=== PATIENT | male | born 1960 | race Caucasian/White ===

== ENCOUNTER 2018-12-02 14:35 | Inpatient (IN) | payer BC ==
[2018-12-02] MEDS ORDERED: HYDROmorphone 0.5 MG/0.5 ML Syringe IVPUSH ONE ×2 (15:07→17:24)
[2018-12-02] MEDS ORDERED: Ondansetron 4 MG/2 ML SDV IVPUSH ONE (15:07)
[2018-12-02] MEDS ORDERED: Sodium Chloride 0.9% 10 ML Syringe FLUSH ONE (15:16)
[2018-12-02] MEDS ORDERED: Iopamidol 612 MG/ML 100 ML Bottle IVPUSH ONE (15:16)
[2018-12-02] MEDS ORDERED: Diatrizoate Meglumine/Diatrizoate Sodium 37% 120 ML Bottle PO ONE (15:16)
[2018-12-02] MEDS: Sodium Chloride 0.9% 10 ML Syringe FLUSH PRN ×2 (15:18→16:51)
[2018-12-02] MEDS: Sodium Chloride 0.9% 1,000 ML IV SCH (15:18)
--- NOTE | 2018-12-02 15:21 | EDM.PDOC ---
<Bonita Benítez - Last Filed: 12/02/18 15:14> ED HPI GENERAL MEDICAL PROBLEM - General Chief Complaint: Abdominal Pain Stated Complaint: SEVERE ABDOMINAL PAIN Time Seen by Provider: 12/02/18 14:48 Source of Information: Reports: Patient History Limitations: Reports: No Limitations - History of Present Illness INITIAL COMMENTS - FREE TEXT/NARRATIVE: 58 year old male with complaints of periumbilical pain. Pt states that he was putting a starter in a car when he developed sudden onset stabbing periumbilical pain. States that he became nauseated and then threw up. Vomit was yellow. Pain has been constant since. Did have a normal bowel movement this morning and denies issues with diarrhea or constipation or bloody stool. Has had chills since the pain has started. Pt does still have his appendix and gallbladder. Middle Abdomen Pain Score (Numeric/FACES): 10 - Related Data Allergies Allergy/AdvReac Type Severity Reaction Status Date / Time No Known Allergies Allergy Verified 12/02/18 14:47 Past Medical History Cardiovascular History: Reports: Hypertension - Past Surgical History Musculoskeletal Surgical History: Reports: Other (See Below) Other Musculoskeletal Surgeries/Procedures:: neck surgery; pins to left foot due to injury/fracture Social & Family History - Tobacco Use Smoking Status *Q: Current Every Day Smoker Years of Tobacco use: 30 Packs/Tins Daily: 0.7 - Caffeine Use Caffeine Use: Reports: Coffee, Soda - Recreational Drug Use Recreational Drug Use: No ED ROS GENERAL - Review of Systems Review Of Systems: See Below Constitutional: Reports: Chills HEENT: Reports: No Symptoms Respiratory: Reports: No Symptoms Cardiovascular: Reports: No Symptoms Endocrine: Reports: No Symptoms GI/Abdominal: Reports: Abdominal Pain, Nausea, Vomiting. Denies: Black Stool, Bloody Stool, Constipation, Diarrhea, Hematemesis : Reports: No Symptoms Musculoskeletal: Reports: No Symptoms Skin: Reports: No Symptoms Neurological: Reports: No Symptoms Psychiatric: Reports: No Symptoms Hematologic/Lymphatic: Reports: No Symptoms Immunologic: Reports: No Symptoms ED EXAM, GI/ABD - Physical Exam Exam: See Below Exam Limited By: No Limitations General Appearance: Alert, WD/WN, Moderate Distress Ears: Normal External Exam Nose: Normal Inspection Throat/Mouth: Normal Inspection, Normal Oropharynx, Normal Voice, No Airway Compromise Head: Atraumatic, Normocephalic Neck: Normal Inspection, Supple Respiratory/Chest: No Respiratory Distress, Lungs Clear, Normal Breath Sounds, No Accessory Muscle Use, Chest Non-Tender Cardiovascular: Normal Peripheral Pulses, Regular Rate, Rhythm, No Edema, No Murmur GI/Abdominal Exam: Normal Bowel Sounds, Guarding, Tender. No: Distended, Rigid (Male) Exam: Deferred Rectal (Males) Exam: Deferred Back Exam: Normal Inspection Extremities: Normal Inspection, Normal Range of Motion, Non-Tender, No Pedal Edema Neurological: Alert, Oriented, Normal Cognition Psychiatric: Normal Affect, Normal Mood Skin Exam: Warm, Dry, Intact, Normal Color, No Rash Lymphatic: No Adenopathy Course - Vital Signs Last Recorded V/S: Last Vital Signs Temp 97.4 F 12/02/18 14:52 Pulse 74 12/02/18 14:52 Resp 20 12/02/18 14:52 BP 174/86 H 12/02/18 14:52 Pulse Ox 100 12/02/18 14:52 - Orders/Labs/Meds Orders: Active Orders 24 hr Category Date Time Status Peripheral IV Care [RC] . DIRECTED Care 12/02/18 15:09 Active Sodium Chloride 0.9% [Normal Saline] 1,000 ml Med 12/02/18 15:15 Active IV ASDIRECTED Sodium Chloride 0.9% [Saline Flush] Med 12/02/18 15:09 Active 10 ml FLUSH ASDIRECTED PRN NG [Nasogastric Orogastric Tube Insertion] [OM.PC] Oth 12/02/18 17:53 Ordered Routine Peripheral IV Insertion Adult [OM.PC] Routine Oth 12/02/18 15:09 Ordered Medication Orders Sodium Chloride (Normal Saline) 1,000 mls @ 150 mls/hr IV ASDIRECTED EBONI Last Admin: 12/02/18 15:18 Dose: 150 mls/hr Sodium Chloride (Saline Flush) 10 ml FLUSH ASDIRECTED PRN PRN Reason: Keep Vein Open Last Admin: 12/02/18 16:51 Dose: 10 ml Admin: 12/02/18 15:18 Dose: 10 ml Labs: Laboratory Tests 12/02/18 12/02/18 12/02/18 Range/Units 15:50 15:50 17:21 WBC 12.62 H (4.23-9.07) K/mm3 RBC 4.16 L (4.63-6.08) M/mm3 Hgb 13.8 (13.7-17.5) gm/dl Hct 41.1 (40.1-51.0) % MCV 98.8 H (79.0-92.2) fl MCH 33.2 H (25.7-32.2) pg MCHC 33.6 (32.2-35.5) g/dl RDW Std Deviation 45.3 H (35.1-43.9) fL Plt Count 295 (163-337) K/mm3 MPV 9.2 L (9.4-12.3) fl Neutrophils % (Manual) 92 H (40-60) % Band Neutrophils % 0 (0-10) % Lymphocytes % (Manual) 7 L (20-40) % Atypical Lymphs % 0 % Monocytes % (Manual) 1 L (2-10) % Eosinophils % (Manual) 0 L (0.8-7.0) % Basophils % (Manual) 0 L (0.2-1.2) Platelet Estimate Adequate RBC Morph Comment Normal Sodium 137 (136-145) mEq/L Potassium 3.5 (3.5-5.1) mEq/L Chloride 99 (98-107) mEq/L Carbon Dioxide 24 (21-32) mEq/L Anion Gap 17.5 H (5-15) BUN 8 (7-18) mg/dL Creatinine 0.8 (0.7-1.3) mg/dL Est Cr Clr Drug Dosing 109.13 mL/min Estimated GFR (MDRD) > 60 (>60) mL/min BUN/Creatinine Ratio 10.0 L (14-18) Glucose 137 H (74-106) mg/dL Calcium 9.3 (8.5-10.1) mg/dL Total Bilirubin 0.7 (0.2-1.0) mg/dL AST 24 (15-37) U/L ALT 30 (16-63) U/L Alkaline Phosphatase 81 (46-116) U/L C-Reactive Protein < 0.2 (<1.0) mg/dL Total Protein 7.6 (6.4-8.2) g/dl Albumin 4.0 (3.4-5.0) g/dl Globulin 3.6 gm/dL Albumin/Globulin Ratio 1.1 (1-2) Urine Color Yellow (Yellow) Urine Appearance Clear (Clear) Urine pH 7.0 (5.0-8.0) Ur Specific [place] 1.015 (1.005-1.030) Urine Protein Trace H (Negative) Urine Glucose (UA) Negative (Negative) Urine Ketones 4+ H (Negative) Urine Occult Blood Negative (Negative) Urine Nitrite Negative (Negative) Urine Bilirubin Negative (Negative) Urine Urobilinogen 0.2 (0.2-1.0) Ur Leukocyte Esterase Negative (Negative) Urine RBC Not seen (0-5) /hpf Urine WBC 0-5 (0-5) /hpf Ur Squamous Epith Cells Not seen (0-5) /hpf Amorphous Sediment Moderate H (NOT SEEN) /hpf Urine Bacteria Few (FEW) /hpf Urine Mucus Not seen (FEW) /hpf Meds: Medications Generic Name Dose Route Start Last Admin Trade Name Bahmanq PRN Reason Stop Dose Admin Sodium Chloride 1,000 mls @ 150 mls/hr 12/02/18 15:15 12/02/18 15:18 Normal Saline IV 150 mls/hr ASDIRECTED EBONI Administration Sodium Chloride 10 ml 12/02/18 15:09 12/02/18 16:51 Saline Flush FLUSH 10 ml ASDIRECTED PRN Administration Keep Vein Open Discontinued Medications Generic Name Dose Route Start Last Admin Trade Name Freq PRN Reason Stop Dose Admin Diatrizoate Meglum/Diatrizoate Sod 90 ml 12/02/18 15:16 12/02/18 16:51 Gastrografin 37% PO 12/02/18 15:17 90 ml ONETIME ONE Administration Hydromorphone HCl 0.5 mg 12/02/18 15:07 12/02/18 15:18 Dilaudid IVPUSH 12/02/18 15:08 0.5 mg ONETIME ONE Administration Hydromorphone HCl 0.5 mg 12/02/18 17:24 12/02/18 17:35 Dilaudid IVPUSH 12/02/18 17:25 0.5 mg ONETIME ONE Administration Iopamidol 100 ml 12/02/18 15:16 12/02/18 16:51 Isovue-300 (61%) IVPUSH 12/02/18 15:17 100 ml ONETIME ONE Administration Ondansetron HCl 4 mg 12/02/18 15:07 12/02/18 15:18 Zofran IVPUSH 12/02/18 15:08 4 mg ONETIME ONE Administration Sodium Chloride 10 ml 12/02/18 15:16 12/02/18 17:17 Saline Flush FLUSH 12/02/18 15:17 Not Given ONETIME ONE - Re-Assessments/Exams Free Text/Narrative Re-Assessment/Exam: 12/02/18 15:21 I ordered a CBC, CMP, CRP, UA, CT of abdomen and pelvis, Dilaudid, Zofran, and Normal saline to run at 150ml/hr. Departure - Departure Disposition: Admitted As Inpatient 65 Clinical Impression: Small bowel obstruction - Discharge Information Referrals: Roby Ko Jr, MD [Primary Care Provider] - Forms: ED Department Discharge - My Orders Last 24 Hours: My Active Orders 12/02/18 17:53 NG [Nasogastric Orogastric Tube Insertion] [OM.PC] Routine - Assessment/Plan Last 24 Hours: My Active Orders 12/02/18 17:53 NG [Nasogastric Orogastric Tube Insertion] [OM.PC] Routine <Praneeth Yun - Last Filed: 12/02/18 18:16> ED HPI GENERAL MEDICAL PROBLEM - History of Present Illness Onset: Gradual Duration: Hour(s): Location: Reports: Abdomen Quality: Reports: Sharp Severity: Severe Improves with: Reports: None Worsens with: Reports: None Associated Symptoms: Reports: No Other Symptoms Course - Re-Assessments/Exams Free Text/Narrative Re-Assessment/Exam: 12/02/18 17:54 I examined the patient myself and I agree with Bonita's assessment and plan. I ordered labs, UA, CT of his abdomen and pelvis with IV and oral contrast, dilaudid and zofran. His WBC was elevated at 12.62. His anion gap was elevated at 17.5. His glucose was elevated at 137. His CRP was normal. His CT shows dilated small bowel loops containing fluid. Findings compatible with small bowel obstruction. This obstruction is caused by a focal stricture within the right abdomen measuring 6.2 cm in length. 2nd more proximal stricture measuring 1.5cm in length is also noted. These strictures can be caused by previous ischemia as well as Crohn's disease. Free fluid within the pelvis most likely reactive from the small bowel process. I called Dr Sloan and he agreed to the admission. I also called Dr De Leon and he was okay being on consult. He wanted the patient NPO and an NG tube put in. Departure - Departure Time of Disposition: 18:20 Condition: Good - My Orders Last 24 Hours: My Active Orders 12/02/18 17:53 NG [Nasogastric Orogastric Tube Insertion] [OM.PC] Routine - Assessment/Plan Last 24 Hours: My Active Orders 12/02/18 17:53 NG [Nasogastric Orogastric Tube Insertion] [OM.PC] Routine
--- NOTE | 2018-12-02 17:28 | CT ---
CT abdomen and pelvis Technique: Multiple axial sections were obtained from above the dome of the diaphragm inferiorly through the pubic symphysis. Intravenous contrast and oral contrast has been given. Delayed images also obtained through the abdomen and pelvis. Comparison: No prior abdominal imaging. Findings: Dilated fluid-filled small bowel loops are seen. Transitional point appears within the right side of the abdomen. This appears to be due to a long segment of stricture measuring 6.2 cm. 2nd stricture is seen slightly more proximal measuring 1.5 cm. Visualized lung bases shows nothing acute. Liver contains no focal abnormality. Spleen appears within normal limits. Adrenal glands show no nodule or mass. Pancreas is within normal limits. Kidneys show symmetric contrast enhancement without hydronephrosis or mass. Aorta shows diffuse atherosclerotic calcification which continues into the iliac vessels. No aneurysm is seen. No retroperitoneal adenopathy or mesenteric abnormalities are seen. No pelvic mass or adenopathy is seen. There is free fluid seen within the pelvis being seen most likely reactive from the small bowel obstruction. Delayed images shows contrast throughout the ureters as well as contrast within the bladder. Impression: 1. Dilated small bowel loops containing fluid. Findings compatible with small bowel obstruction. This obstruction is caused by a focal stricture within the right abdomen measuring 6.2 cm in length. 2nd more proximal stricture measuring 1.5 cm length is also noted. These strictures can be caused by previous ischemia as well as Crohn's disease. 2. Free fluid within the pelvis most likely reactive from the small bowel process. 3. Other findings which are believed to be incidental as noted above. Diagnostic code #5
[2018-12-02] MEDS ORDERED: Midazolam 1 MG/ML 2 ML SDV ONE (20:02)
[2018-12-02] MEDS ORDERED: Propofol 200 MG/20 ML SDV ONE (20:02)
[2018-12-02] MEDS ORDERED: Ondansetron 4 MG/2 ML SDV ONE (20:02)
[2018-12-02] MEDS ORDERED: Lidocaine 1% 4 ML ONE (20:02)
[2018-12-02] MEDS ORDERED: Rocuronium 50 MG/5 ML Vial ONE ×2 (20:02→23:08)
[2018-12-02] MEDS ORDERED: Succinylcholine/Normal Saline 100 MG/5 ML Syringe ONE (20:02)
--- NOTE | 2018-12-02 20:02 | PCM.HP.2 ---
H&P History of Present Illness - General Date of Service: 12/02/18 Admit Problem/Dx: Admission Diagnosis/Problem Admission Diagnosis/Problem Small bowel obstruction Source of Information: Patient History Limitations: Reports: No Limitations - History of Present Illness Initial Comments - Free Text/Narative: The patient is a 58 yo male with only PMH of HTN. The patient started having acute onset of abdominal pain at noon today. His pain is constant 7-8/10, associated with vomiting. He had one episode of emesis. Has not eaten since noon today. Pain is located in the periumbilical region, not radiating anywhere. patient denies any personal of family history of IBD, no history of cancer, no prior abdominal issues of any kind prior to this episode. Never had colonoscopy. Smokes 1PPD, drinks 6-12 drinks daily. Onset of Symptoms: Reports: Today Duration of Symptoms: Reports: Hour(s):, Waxing/Waning Location: Reports: Abdomen Quality: Reports: Ache Severity: Severe Worsens with: Reports: Movement Context: Reports: Other (none) Associated Symptoms: Reports: Nausea/Vomiting Middle Abdomen Pain Score (Numeric/FACES): 10 - Related Data Allergies/Adverse Reactions: Allergies Allergy/AdvReac Type Severity Reaction Status Date / Time No Known Allergies Allergy Verified 12/02/18 14:47 Past Medical History Cardiovascular History: Reports: Hypertension - Past Surgical History Musculoskeletal Surgical History: Reports: Other (See Below) Other Musculoskeletal Surgeries/Procedures:: neck surgery; pins to left foot due to injury/fracture Social & Family History - Tobacco Use Smoking Status *Q: Current Every Day Smoker Years of Tobacco use: 30 Packs/Tins Daily: 0.7 - Caffeine Use Caffeine Use: Reports: Coffee, Soda - Recreational Drug Use Recreational Drug Use: No H&P Review of Systems - Review of Systems: Review Of Systems: See Below General: Reports: No Symptoms HEENT: Reports: No Symptoms Pulmonary: Reports: No Symptoms Cardiovascular: Reports: No Symptoms Gastrointestinal: Reports: Abdominal Pain Genitourinary: Reports: No Symptoms Musculoskeletal: Reports: No Symptoms Skin: Reports: No Symptoms Psychiatric: Reports: No Symptoms Neurological: Reports: No Symptoms Hematologic/Lymphatic: Reports: No Symptoms Immunologic: Reports: No Symptoms Exam - Exam Exam: See Below - Vital Signs Vital Signs: Last Vital Signs Temp 97.4 F 12/02/18 14:52 Pulse 74 12/02/18 14:52 Resp 20 12/02/18 14:52 BP 174/86 H 12/02/18 14:52 Pulse Ox 100 12/02/18 14:52 Weight: 79.379 kg - Exam General: Alert, Oriented, Cooperative, Moderate Distress HEENT: Conjunctiva Clear Lungs: Clear to Auscultation, Normal Respiratory Effort Cardiovascular: Regular Rate, Regular Rhythm, Normal S1, Normal S2 GI/Abdominal Exam: Soft, No Mass, Distended, Tender (Male) Exam: No Hernia - Patient Data Lab Results Last 24 hrs: Laboratory Results - last 24 hr 12/02/18 12/02/18 12/02/18 Range/Units 15:50 15:50 17:21 WBC 12.62 H (4.23-9.07) K/mm3 RBC 4.16 L (4.63-6.08) M/mm3 Hgb 13.8 (13.7-17.5) gm/dl Hct 41.1 (40.1-51.0) % MCV 98.8 H (79.0-92.2) fl MCH 33.2 H (25.7-32.2) pg MCHC 33.6 (32.2-35.5) g/dl RDW Std Deviation 45.3 H (35.1-43.9) fL Plt Count 295 (163-337) K/mm3 MPV 9.2 L (9.4-12.3) fl Neutrophils % (Manual) 92 H (40-60) % Band Neutrophils % 0 (0-10) % Lymphocytes % (Manual) 7 L (20-40) % Atypical Lymphs % 0 % Monocytes % (Manual) 1 L (2-10) % Eosinophils % (Manual) 0 L (0.8-7.0) % Basophils % (Manual) 0 L (0.2-1.2) Platelet Estimate Adequate RBC Morph Comment Normal Sodium 137 (136-145) mEq/L Potassium 3.5 (3.5-5.1) mEq/L Chloride 99 (98-107) mEq/L Carbon Dioxide 24 (21-32) mEq/L Anion Gap 17.5 H (5-15) BUN 8 (7-18) mg/dL Creatinine 0.8 (0.7-1.3) mg/dL Est Cr Clr Drug Dosing 109.13 mL/min Estimated GFR (MDRD) > 60 (>60) mL/min BUN/Creatinine Ratio 10.0 L (14-18) Glucose 137 H (74-106) mg/dL Calcium 9.3 (8.5-10.1) mg/dL Total Bilirubin 0.7 (0.2-1.0) mg/dL AST 24 (15-37) U/L ALT 30 (16-63) U/L Alkaline Phosphatase 81 (46-116) U/L C-Reactive Protein < 0.2 (<1.0) mg/dL Total Protein 7.6 (6.4-8.2) g/dl Albumin 4.0 (3.4-5.0) g/dl Globulin 3.6 gm/dL Albumin/Globulin Ratio 1.1 (1-2) Urine Color Yellow (Yellow) Urine Appearance Clear (Clear) Urine pH 7.0 (5.0-8.0) Ur Specific [place] 1.015 (1.005-1.030) Urine Protein Trace H (Negative) Urine Glucose (UA) Negative (Negative) Urine Ketones 4+ H (Negative) Urine Occult Blood Negative (Negative) Urine Nitrite Negative (Negative) Urine Bilirubin Negative (Negative) Urine Urobilinogen 0.2 (0.2-1.0) Ur Leukocyte Esterase Negative (Negative) Urine RBC Not seen (0-5) /hpf Urine WBC 0-5 (0-5) /hpf Ur Squamous Epith Cells Not seen (0-5) /hpf Amorphous Sediment Moderate H (NOT SEEN) /hpf Urine Bacteria Few (FEW) /hpf Urine Mucus Not seen (FEW) /hpf Result Diagrams: 12/02/18 15:50 12/02/18 15:50 Problem List Initiated/Reviewed/Updated: No Orders Last 24hrs: Active Orders 24 hr Category Date Time Status Patient Status [ADT] Routine ADT 12/02/18 19:41 Active EKG Documentation Completion [RC] ASDIRECTED Care 12/02/18 19:45 Active EKG Documentation Completion [RC] STAT Care 12/02/18 19:45 Inactive Peripheral IV Care [RC] . DIRECTED Care 12/02/18 15:09 Active Sodium Chloride 0.9% [Normal Saline] 1,000 ml Med 12/02/18 15:15 Active IV ASDIRECTED Sodium Chloride 0.9% [Saline Flush] Med 12/02/18 15:09 Active 10 ml FLUSH ASDIRECTED PRN NG [Nasogastric Orogastric Tube Insertion] [OM.PC] Oth 12/02/18 17:53 Ordered Routine Peripheral IV Insertion Adult [OM.PC] Routine Oth 12/02/18 15:09 Ordered Schedule Procedure [COMM] Stat Oth 12/02/18 19:47 Ordered EKG 12 Lead [EK] Routine Ther 12/02/18 19:43 Ordered Medication Orders Sodium Chloride (Normal Saline) 1,000 mls @ 150 mls/hr IV ASDIRECTED EBONI Last Admin: 12/02/18 15:18 Dose: 150 mls/hr Sodium Chloride (Saline Flush) 10 ml FLUSH ASDIRECTED PRN PRN Reason: Keep Vein Open Last Admin: 12/02/18 16:51 Dose: 10 ml Admin: 12/02/18 15:18 Dose: 10 ml Assessment/Plan Comment:: Acute onset abdominal pain [address] reveals strictures and inflamed small bowel. There is pelvic free fluid. The fact that the patient has had no prior abdominal history is concerning. Imaging findings are also concerning given duration of symptoms of only 6-8 hours. I recommend we proceed with diagnostic laparoscopy, possible bowel resection, possible open. I discussed with the patient risks, benefits and alternatives. Risks discussed include but not limited to bleeding, infection, wound complications, injury to intraabdominal structures, pneumonia, blood clots and a small chance of . The patient understands and agree to proceed with the procedure. Informed consent was obtained.
[2018-12-02] MEDS ORDERED: fentaNYL 250 MCG/5 ML SDV ONE ×2 (20:03→21:27)
[2018-12-02] MEDS ORDERED: Ertapenem 1 GM in Sodium Chloride 0.9% 100 ML IV ONE (20:08)
[2018-12-02] MEDS ORDERED: Albuterol 0.083% 2.5 MG/3 ML Neb Soln NEB ONE (20:21)
--- NOTE | 2018-12-02 20:21 | PCM.PREANE ---
Preanesthetic Assessment - Procedure Proposed Procedure: exploratory lap - Anesthesia/Transfusion/Family Hx Anesthesia History: Prior Anesthesia Reaction Type of Anesthesia Reaction: Other (see below) (hard to wake up) Family History of Anesthesia Reaction: No Transfusion History: No Prior Transfusion(s) - Review of Systems General: No Symptoms Pulmonary: No Symptoms Cardiovascular: No Symptoms Gastrointestinal: Abdominal Pain, Nausea, Vomiting Neurological: No Symptoms Other: Reports: None, Neck Pain (surgery) - Physical Assessment NPO Status Date: 12/02/18 NPO Status Time: 11:00 Vital Signs: Last Vital Signs Temp 97.4 F 12/02/18 14:52 Pulse 74 12/02/18 14:52 Resp 20 12/02/18 14:52 BP 174/86 H 12/02/18 14:52 Pulse Ox 100 12/02/18 14:52 Height: 6 ft Weight: 79.379 kg ASA Class: 2E Mental Status: Alert & Oriented x3 Airway Class: Mallampati = 1 Dentition: Reports: Dentures (top and bottom) Thyro-Mental Finger Breadths: 3 Mouth Opening Finger Breadths: 3 ROM/Head Extension: Full Lungs: Clear to Auscultation, Normal Respiratory Effort Cardiovascular: Regular Rate, Regular Rhythm - Lab Values: Laboratory Last Values WBC 12.62 K/mm3 (4.23-9.07) H 12/02/18 15:50 RBC 4.16 M/mm3 (4.63-6.08) L 12/02/18 15:50 Hgb 13.8 gm/dl (13.7-17.5) 12/02/18 15:50 Hct 41.1 % (40.1-51.0) 12/02/18 15:50 MCV 98.8 fl (79.0-92.2) H 12/02/18 15:50 MCH 33.2 pg (25.7-32.2) H 12/02/18 15:50 MCHC 33.6 g/dl (32.2-35.5) 12/02/18 15:50 RDW Std Deviation 45.3 fL (35.1-43.9) H 12/02/18 15:50 Plt Count 295 K/mm3 (163-337) 12/02/18 15:50 MPV 9.2 fl (9.4-12.3) L 12/02/18 15:50 Neutrophils % (Manual) 92 % (40-60) H 12/02/18 15:50 Band Neutrophils % 0 % (0-10) 12/02/18 15:50 Lymphocytes % (Manual) 7 % (20-40) L 12/02/18 15:50 Atypical Lymphs % 0 % 12/02/18 15:50 Monocytes % (Manual) 1 % (2-10) L 12/02/18 15:50 Eosinophils % (Manual) 0 % (0.8-7.0) L 12/02/18 15:50 Basophils % (Manual) 0 (0.2-1.2) L 12/02/18 15:50 Platelet Estimate Adequate 12/02/18 15:50 RBC Morph Comment Normal 12/02/18 15:50 Sodium 137 mEq/L (136-145) 12/02/18 15:50 Potassium 3.5 mEq/L (3.5-5.1) 12/02/18 15:50 Chloride 99 mEq/L (98-107) 12/02/18 15:50 Carbon Dioxide 24 mEq/L (21-32) 12/02/18 15:50 Anion Gap 17.5 (5-15) H 12/02/18 15:50 BUN 8 mg/dL (7-18) 12/02/18 15:50 Creatinine 0.8 mg/dL (0.7-1.3) 12/02/18 15:50 Est Cr Clr Drug Dosing 109.13 mL/min 12/02/18 15:50 Estimated GFR (MDRD) > 60 mL/min (>60) 12/02/18 15:50 BUN/Creatinine Ratio 10.0 (14-18) L 12/02/18 15:50 Glucose 137 mg/dL (74-106) H 12/02/18 15:50 Calcium 9.3 mg/dL (8.5-10.1) 12/02/18 15:50 Total Bilirubin 0.7 mg/dL (0.2-1.0) 12/02/18 15:50 AST 24 U/L (15-37) 12/02/18 15:50 ALT 30 U/L (16-63) 12/02/18 15:50 Alkaline Phosphatase 81 U/L (46-116) 12/02/18 15:50 C-Reactive Protein < 0.2 mg/dL (<1.0) 12/02/18 15:50 Total Protein 7.6 g/dl (6.4-8.2) 12/02/18 15:50 Albumin 4.0 g/dl (3.4-5.0) 12/02/18 15:50 Globulin 3.6 gm/dL 12/02/18 15:50 Albumin/Globulin Ratio 1.1 (1-2) 12/02/18 15:50 Urine Color Yellow (Yellow) 12/02/18 17:21 Urine Appearance Clear (Clear) 12/02/18 17:21 Urine pH 7.0 (5.0-8.0) 12/02/18 17:21 Ur Specific [place] 1.015 (1.005-1.030) 12/02/18 17:21 Urine Protein Trace (Negative) H 12/02/18 17:21 Urine Glucose (UA) Negative (Negative) 12/02/18 17:21 Urine Ketones 4+ (Negative) H 12/02/18 17:21 Urine Occult Blood Negative (Negative) 12/02/18 17:21 Urine Nitrite Negative (Negative) 12/02/18 17:21 Urine Bilirubin Negative (Negative) 12/02/18 17:21 Urine Urobilinogen 0.2 (0.2-1.0) 12/02/18 17:21 Ur Leukocyte Esterase Negative (Negative) 12/02/18 17:21 Urine RBC Not seen /hpf (0-5) 12/02/18 17:21 Urine WBC 0-5 /hpf (0-5) 12/02/18 17:21 Ur Squamous Epith Cells Not seen /hpf (0-5) 12/02/18 17:21 Amorphous Sediment Moderate /hpf (NOT SEEN) H 12/02/18 17:21 Urine Bacteria Few /hpf (FEW) 12/02/18 17:21 Urine Mucus Not seen /hpf (FEW) 12/02/18 17:21 - Allergies Allergies/Adverse Reactions: Allergies Allergy/AdvReac Type Severity Reaction Status Date / Time No Known Allergies Allergy Verified 12/02/18 14:47 - Blood Blood Available: No - Acknowledgements Anesthesia Type Planned: General Anesthesia Pt an Appropriate Candidate for the Planned Anesthesia: Yes Alternatives and Risks of Anesthesia Discussed w Pt/Guardian: Yes Pt/Guardian Understands and Agrees with Anesthesia Plan: Yes PreAnesthesia Questionnaire Cardiovascular History: Reports: High Cholesterol, Hypertension Respiratory History: Reports: None Gastrointestinal History: Reports: Bowel Obstruction, GERD - Past Surgical History Musculoskeletal Surgical History: Reports: Other (See Below) Other Musculoskeletal Surgeries/Procedures:: neck surgery; pins to left foot due to injury/fracture - SUBSTANCE USE Smoking Status *Q: Current Every Day Smoker Tobacco Use Within Last Twelve Months: Cigarettes Second Hand Smoke Exposure: Yes Days Per Week of Alcohol Use: 7 Number of Drinks Per Day: 10 Total Drinks Per Week: 70 Recreational Drug Use History: No - HOME MEDS Home Medications: Home Meds Enalapril Maleate 10 mg PO DAILY 12/02/18 [History] Spironolactone [Aldactone] 25 mg PO DAILY 12/02/18 [History] atorvaSTATin Calcium [Atorvastatin Calcium] 20 mg PO DAILY 12/02/18 [History] - CURRENT (IN HOUSE) MEDS Current Meds: Current Medications Sodium Chloride (Normal Saline) 1,000 mls @ 150 mls/hr IV ASDIRECTED EBONI Last Admin: 12/02/18 15:18 Dose: 150 mls/hr Ertapenem 1 gm/ Sodium (Chloride) 100 mls @ 100 mls/hr IV ONETIME ONE Stop: 12/02/18 21:07 Sodium Chloride (Saline Flush) 10 ml FLUSH ASDIRECTED PRN PRN Reason: Keep Vein Open Last Admin: 12/02/18 16:51 Dose: 10 ml Discontinued Medications Diatrizoate Meglum/Diatrizoate Sod (Gastrografin 37%) 90 ml PO ONETIME ONE Stop: 12/02/18 15:17 Last Admin: 12/02/18 16:51 Dose: 90 ml Fentanyl (Sublimaze) Confirm Administered Dose 250 mcg .ROUTE .STK-MED ONE Stop: 12/02/18 20:04 Hydromorphone HCl (Dilaudid) 0.5 mg IVPUSH ONETIME ONE Stop: 12/02/18 15:08 Last Admin: 12/02/18 15:18 Dose: 0.5 mg Hydromorphone HCl (Dilaudid) 0.5 mg IVPUSH ONETIME ONE Stop: 12/02/18 17:25 Last Admin: 12/02/18 17:35 Dose: 0.5 mg Lidocaine HCl (Xylocaine-Mpf 1%) Confirm Administered Dose 4 mls @ as directed .ROUTE .STK-MED ONE Stop: 12/02/18 20:03 Iopamidol (Isovue-300 (61%)) 100 ml IVPUSH ONETIME ONE Stop: 12/02/18 15:17 Last Admin: 12/02/18 16:51 Dose: 100 ml Midazolam HCl (Versed 1 Mg/Ml) Confirm Administered Dose 2 mg .ROUTE .STK-MED ONE Stop: 12/02/18 20:03 Ondansetron HCl (Zofran) 4 mg IVPUSH ONETIME ONE Stop: 12/02/18 15:08 Last Admin: 12/02/18 15:18 Dose: 4 mg Ondansetron HCl (Zofran) Confirm Administered Dose 4 mg .ROUTE .STK-MED ONE Stop: 12/02/18 20:03 Propofol (Diprivan 20 Ml) Confirm Administered Dose 200 mg .ROUTE .STK-MED ONE Stop: 12/02/18 20:03 Rocuronium [place] (Zemuron) Confirm Administered Dose 50 mg .ROUTE .STK-MED ONE Stop: 12/02/18 20:03 Sodium Chloride (Saline Flush) 10 ml FLUSH ONETIME ONE Stop: 12/02/18 15:17 Last Admin: 12/02/18 17:17 Dose: Not Given Succinylcholine Chloride (Succinylcholine In Ns Pf) Confirm Administered Dose 100 mg .ROUTE .STK-MED ONE Stop: 12/02/18 20:03
[2018-12-02] MEDS ORDERED: hydrALAZINE 20 MG/ML SDV IVPUSH PRN (20:30)
--- NOTE | 2018-12-02 20:38 | PCM.CONS ---
H&P History of Present Illness - General Date of Service: 12/02/18 Admit Problem/Dx: Admission Diagnosis/Problem Admission Diagnosis/Problem Small bowel obstruction - History of Present Illness Initial Comments - Free Text/Narative: 58-year-old male with history of hypertension and hyperlipidemia presented to the emergency room around lunchtime with sudden onset stabbing. Umbilical pain. He was changing the starter in his car and developed abdominal pain. He tried to eat lunch and was nauseated and did vomit one time. Patient then presented to the emergency room because of worsening pain. He denies any diarrhea, constipation, hematochezia or melena. He denies any hematemesis. He has not had abdominal surgery in the past. Pain is sharp, 7-8 out of 10, and is nonradiating. He has no history of bowel disease. He smokes 1/2-1 pack per day and drinks 6-12 beers daily. He has no history of withdrawal or alcohol withdrawal seizures. He denies any chest pain, orthopnea, or PND. He is able to walk up 2 flights of stairs without chest pain and is able to work all day long at a physical job without shortness of breath or chest pain. In the emergency room a CT scan of the abdomen was performed. Impression: 1. Dilated small bowel loops containing fluid. Findings compatible with small bowel obstruction. This obstruction is caused by a focal stricture within the right abdomen measuring 6.2 cm in length. Second more proximal stricture measuring 1.5 cm in length is also noted. The strictures can be caused by previous ischemia as well as Crohn's disease. 2. Free fluid within the pelvis most likely reactive from the small bowel process. Emergency room labs: WBC 12.62, hemoglobin 13.8, platelet count 295, sodium 137 , potassium 3.5, anion gap 17.5, chloride 99, carbon dioxide 24, BUN 8, creatinine 0.8, glucose 137, normal liver enzymes. UA notable for 4+ ketones and trace protein. Dr. De Leon was consulted and because of the acute nature, strictures, inflamed small bowel, free fluid in the pelvis, no prior history of abdominal disease he recommended going straight to diagnostic laparoscopy with possible bowel resection. Middle Abdomen Pain Score (Numeric/FACES): 10 - Related Data Allergies/Adverse Reactions: Allergies Allergy/AdvReac Type Severity Reaction Status Date / Time No Known Allergies Allergy Verified 12/02/18 14:47 Home Medications: Home Meds Enalapril Maleate 10 mg PO DAILY 12/02/18 [History] Spironolactone [Aldactone] 25 mg PO DAILY 12/02/18 [History] atorvaSTATin Calcium [Atorvastatin Calcium] 20 mg PO DAILY 12/02/18 [History] Past Medical History Cardiovascular History: Reports: High Cholesterol, Hypertension Respiratory History: Reports: None Gastrointestinal History: Reports: Bowel Obstruction, GERD - Past Surgical History Musculoskeletal Surgical History: Reports: Other (See Below) Other Musculoskeletal Surgeries/Procedures:: neck surgery; pins to left foot due to injury/fracture Social & Family History - Tobacco Use Smoking Status *Q: Current Every Day Smoker Years of Tobacco use: 30 Packs/Tins Daily: 0.7 Second Hand Smoke Exposure: Yes - Caffeine Use Caffeine Use: Reports: Coffee, Soda - Alcohol Use Days Per Week of Alcohol Use: 7 Number of Drinks Per Day: 10 Total Drinks Per Week: 70 - Recreational Drug Use Recreational Drug Use: No H&P Review of Systems - Review of Systems: Review Of Systems: ROS reveals no pertinent complaints other than HPI. Exam - Exam Exam: See Below - Vital Signs Vital Signs: Last Vital Signs Temp 97.4 F 12/02/18 14:52 Pulse 74 12/02/18 14:52 Resp 20 12/02/18 14:52 BP 174/86 H 12/02/18 14:52 Pulse Ox 100 12/02/18 14:52 Weight: 175 lb - Exam Quality Assessment: No: Supplemental Oxygen General: Alert, Oriented, Moderate Distress (Abdominal pain) HEENT: Conjunctiva Clear, EOMI, Hearing Intact, Mucosa Moist & [place], TMs Clear Neck: Supple, Trachea Midline, 2 Lungs: Clear to Auscultation, Normal Respiratory Effort Cardiovascular: Regular Rate, Regular Rhythm GI/Abdominal Exam: Soft, No Organomegaly, No Abnormal Bruit, No Mass, Distended , Tender (Diffusely tender). No: Normal Bowel Sounds (Diminished but present bowel sounds) Extremities: Normal Inspection, Normal Range of Motion, Non-Tender, No Pedal Edema, Normal Capillary Refill Skin: Warm, Dry, Intact Neuro Extensive - Mental Status: Alert, Oriented x3, Normal Mood/Affect, Normal Cognition Neuro Extensive - Motor, Sensory, Reflexes: CN II-XII Intact Psychiatric: Alert, Normal Affect, Normal Mood - Patient Data Lab Results Last 24 hrs: Laboratory Results - last 24 hr 12/02/18 12/02/18 12/02/18 Range/Units 15:50 15:50 17:21 WBC 12.62 H (4.23-9.07) K/mm3 RBC 4.16 L (4.63-6.08) M/mm3 Hgb 13.8 (13.7-17.5) gm/dl Hct 41.1 (40.1-51.0) % MCV 98.8 H (79.0-92.2) fl MCH 33.2 H (25.7-32.2) pg MCHC 33.6 (32.2-35.5) g/dl RDW Std Deviation 45.3 H (35.1-43.9) fL Plt Count 295 (163-337) K/mm3 MPV 9.2 L (9.4-12.3) fl Neutrophils % (Manual) 92 H (40-60) % Band Neutrophils % 0 (0-10) % Lymphocytes % (Manual) 7 L (20-40) % Atypical Lymphs % 0 % Monocytes % (Manual) 1 L (2-10) % Eosinophils % (Manual) 0 L (0.8-7.0) % Basophils % (Manual) 0 L (0.2-1.2) Platelet Estimate Adequate RBC Morph Comment Normal Sodium 137 (136-145) mEq/L Potassium 3.5 (3.5-5.1) mEq/L Chloride 99 (98-107) mEq/L Carbon Dioxide 24 (21-32) mEq/L Anion Gap 17.5 H (5-15) BUN 8 (7-18) mg/dL Creatinine 0.8 (0.7-1.3) mg/dL Est Cr Clr Drug Dosing 109.13 mL/min Estimated GFR (MDRD) > 60 (>60) mL/min BUN/Creatinine Ratio 10.0 L (14-18) Glucose 137 H (74-106) mg/dL Calcium 9.3 (8.5-10.1) mg/dL Total Bilirubin 0.7 (0.2-1.0) mg/dL AST 24 (15-37) U/L ALT 30 (16-63) U/L Alkaline Phosphatase 81 (46-116) U/L C-Reactive Protein < 0.2 (<1.0) mg/dL Total Protein 7.6 (6.4-8.2) g/dl Albumin 4.0 (3.4-5.0) g/dl Globulin 3.6 gm/dL Albumin/Globulin Ratio 1.1 (1-2) Urine Color Yellow (Yellow) Urine Appearance Clear (Clear) Urine pH 7.0 (5.0-8.0) Ur Specific [place] 1.015 (1.005-1.030) Urine Protein Trace H (Negative) Urine Glucose (UA) Negative (Negative) Urine Ketones 4+ H (Negative) Urine Occult Blood Negative (Negative) Urine Nitrite Negative (Negative) Urine Bilirubin Negative (Negative) Urine Urobilinogen 0.2 (0.2-1.0) Ur Leukocyte Esterase Negative (Negative) Urine RBC Not seen (0-5) /hpf Urine WBC 0-5 (0-5) /hpf Ur Squamous Epith Cells Not seen (0-5) /hpf Amorphous Sediment Moderate H (NOT SEEN) /hpf Urine Bacteria Few (FEW) /hpf Urine Mucus Not seen (FEW) /hpf Result Diagrams: 12/02/18 15:50 12/02/18 15:50 Imaging Impressions Last 24 hrs: EKG: Normal sinus rhythm with ventricular rate in the 90s. No axis deviation. Nonspecific ST-T wave changes in the inferior leads. Borderline QT prolongation. Consult PN Assessment/Plan POD#: 0 Procedures: Procedures X-RAY EXAM OF SKULL (06/29/17) Problem List Initiated/Reviewed/Updated: Yes My Orders Last 24 Hours: My Active Orders 12/02/18 19:41 Patient Status [ADT] Routine 12/02/18 19:45 EKG Documentation Completion [RC] STAT 12/02/18 20:29 CIWAA Assessment [RC] Q4H 12/02/18 20:30 hydrALAZINE [Apresoline] 10 mg IVPUSH Q4H PRN Plan: Assessment * Acute onset abdominal pain with small bowel obstruction, strictures, and small bowel inflammation undergoing diagnostic laparoscopy with possible bowel resection and conversion to open surgery * Hypertension on lisinopril and spironolactone * Hyperlipidemia * Tobaccoism * ETOH use : 6-12 beers daily Recommendation * Restart home medications as soon as able. * CIWA protocol. Patient will be at increased risk for alcohol withdrawal after 24-48 hours. * Offer nicotine patch. * Hydralazine 10 mg every 4 hours when necessary systolic blood pressure greater than 200 or diastolic blood pressure greater than 110. * Encourage incentive spirometry * Patient is at low cardiovascular risk in moderate respiratory risk palpitations. This is an emergency surgery therefore increasing risk. * Thank you for letting us participate in the care of this patient. We will follow closely with you. Requesting Provider: Lisette De Leon MD Date Consult Requested: 12/02/18 Reason for Consult: Medical management Patient History Reviewed: Yes Admission H&P Reviewed: Yes Notified Requestor: Yes Time Spent (in minutes): 40
[2018-12-02] MEDS ORDERED: Lidocaine 1% 50 ML MDV ONE (21:06)
[2018-12-02] MEDS ORDERED: Lactated Ringers 1,000 ML ONE ×3 (21:16→22:24)
[2018-12-02] MEDS ORDERED: HYDROmorphone 0.5 MG/0.5 ML Syringe ONE (21:21)
[2018-12-02] MEDS ORDERED: HYDROmorphone 0.5 MG/0.5 ML Syringe IVPUSH PRN (21:24)
[2018-12-02] MEDS ORDERED: Ondansetron 4 MG/2 ML SDV IVPUSH PRN (21:24)
[2018-12-02] MEDS ORDERED: fentaNYL 100 MCG/2 ML SDV IVPUSH PRN (21:24)
[2018-12-02] MEDS ORDERED: Ketamine 500 mg/10 ML MDV ONE (21:27)
[2018-12-02] MEDS ORDERED: Neostigmine Methylsulfate 1 MG/ML 5 ML Syringe ONE (21:53)
--- NOTE | 2018-12-02 23:03 | PCM.POSTAN ---
POST ANESTHESIA ASSESSMENT - MENTAL STATUS Mental Status: Somnolent - VITAL SIGNS Vital Signs: Last Vital Signs Temp 97.4 F 12/02/18 14:52 Pulse 74 12/02/18 14:52 Resp 20 12/02/18 14:52 BP 174/86 H 12/02/18 14:52 Pulse Ox 97 12/02/18 20:28 100% 91 13 97.2 181/94 - RESPIRATORY Respiratory Status: Respiratory Rate WNL, Airway Patent, O2 Saturation Stable, Supplemental Oxygen - CARDIOVASCULAR CV Status: Pulse Rate WNL, Blood Pressure Stable - GASTROINTESTINAL GI Status: No Symptoms - PAIN Pain Score: 0 - POST OP HYDRATION Hydration Status: Adequate & Stable - OBSERVATIONS Free Text/Narrative:: sleepy- rests and opens eyes to command and when spoken to
[2018-12-02] MEDS ORDERED: Ketorolac 30 MG/ML SDV IVPUSH ONE (23:09)
[2018-12-02] MEDS ORDERED: Labetalol 100 MG/20 ML MDV ONE (23:15)
[2018-12-03] MEDS ORDERED: Ondansetron 4 MG/2 ML SDV IVPUSH PRN (00:44)
[2018-12-03] MEDS: Sodium Chloride 0.9% 1,000 ML IV SCH (01:51)
[2018-12-03] MEDS: Lactated Ringers 1,000 ML IV SCH ×2 (06:13→14:37)
--- NOTE | 2018-12-03 07:14 | PCM48HPAN ---
Post Anesthesia Note - EVALUATION WITHIN 48HRS OF ANESTHETIC Vital Signs in Normal Range: Yes Patient Participated in Evaluation: Yes Respiratory Function Stable: Yes Airway Patent: Yes Cardiovascular Function Stable: Yes Hydration Status Stable: Yes Pain Control Satisfactory: Yes Nausea and Vomiting Control Satisfactory: Yes Mental Status Recovered: Yes Vital Signs: Last Vital Signs Temp 37.5 C 12/03/18 00:08 Pulse 85 12/03/18 03:31 Resp 12 12/03/18 00:20 BP 121/65 12/03/18 03:31 Pulse Ox 100 12/03/18 03:31
[2018-12-03] MEDS ORDERED: LORazepam 2 MG/ML SDV IVPUSH PRN (08:27)
[2018-12-03] MEDS: Heparin Sodium 5,000 Units/ML Vial SUBCUT SCH ×2 (08:39→16:42)
[2018-12-03] MEDS: HYDROmorphone 0.5 MG/0.5 ML Syringe IVPUSH PRN ×2 (08:40→21:09)
--- NOTE | 2018-12-03 08:48 | PCM.SURGPN ---
- General Info Date of Service: 12/03/18 POD#: 1 Post-Op Diagnosis: Small bowel ischemia Functional Status: Reports: Pain Controlled - Review of Systems General: Reports: No Symptoms HEENT: Reports: No Symptoms Pulmonary: Reports: No Symptoms Cardiovascular: Reports: No Symptoms Gastrointestinal: Reports: Abdominal Pain Genitourinary: Reports: No Symptoms Musculoskeletal: Reports: No Symptoms Skin: Reports: No Symptoms Neurological: Reports: No Symptoms Psychiatric: Reports: No Symptoms - Patient Data Vitals - Most Recent: Last Vital Signs Temp 99.0 F 12/03/18 08:11 Pulse 85 12/03/18 08:11 Resp 16 12/03/18 08:11 BP 141/74 H 12/03/18 08:11 Pulse Ox 99 12/03/18 08:11 Weight - Most Recent: 81.284 kg I&O - Last 24 Hours: Intake & Output 12/02/18 12/03/18 12/03/18 22:59 06:59 14:59 Intake Total 1850 Output Total 570 Balance 1280 Lab Results Last 24 Hrs: Laboratory Results - last 24 hr 12/02/18 12/02/18 12/02/18 Range/Units 15:50 15:50 17:21 WBC 12.62 H (4.23-9.07) K/mm3 RBC 4.16 L (4.63-6.08) M/mm3 Hgb 13.8 (13.7-17.5) gm/dl Hct 41.1 (40.1-51.0) % MCV 98.8 H (79.0-92.2) fl MCH 33.2 H (25.7-32.2) pg MCHC 33.6 (32.2-35.5) g/dl RDW Std Deviation 45.3 H (35.1-43.9) fL Plt Count 295 (163-337) K/mm3 MPV 9.2 L (9.4-12.3) fl Neutrophils % (Manual) 92 H (40-60) % Band Neutrophils % 0 (0-10) % Lymphocytes % (Manual) 7 L (20-40) % Atypical Lymphs % 0 % Monocytes % (Manual) 1 L (2-10) % Eosinophils % (Manual) 0 L (0.8-7.0) % Basophils % (Manual) 0 L (0.2-1.2) Platelet Estimate Adequate RBC Morph Comment Normal Sodium 137 (136-145) mEq/L Potassium 3.5 (3.5-5.1) mEq/L Chloride 99 (98-107) mEq/L Carbon Dioxide 24 (21-32) mEq/L Anion Gap 17.5 H (5-15) BUN 8 (7-18) mg/dL Creatinine 0.8 (0.7-1.3) mg/dL Est Cr Clr Drug Dosing 109.13 mL/min Estimated GFR (MDRD) > 60 (>60) mL/min BUN/Creatinine Ratio 10.0 L (14-18) Glucose 137 H (74-106) mg/dL Calcium 9.3 (8.5-10.1) mg/dL Total Bilirubin 0.7 (0.2-1.0) mg/dL AST 24 (15-37) U/L ALT 30 (16-63) U/L Alkaline Phosphatase 81 (46-116) U/L C-Reactive Protein < 0.2 (<1.0) mg/dL Total Protein 7.6 (6.4-8.2) g/dl Albumin 4.0 (3.4-5.0) g/dl Globulin 3.6 gm/dL Albumin/Globulin Ratio 1.1 (1-2) Urine Color Yellow (Yellow) Urine Appearance Clear (Clear) Urine pH 7.0 (5.0-8.0) Ur Specific [place] 1.015 (1.005-1.030) Urine Protein Trace H (Negative) Urine Glucose (UA) Negative (Negative) Urine Ketones 4+ H (Negative) Urine Occult Blood Negative (Negative) Urine Nitrite Negative (Negative) Urine Bilirubin Negative (Negative) Urine Urobilinogen 0.2 (0.2-1.0) Ur Leukocyte Esterase Negative (Negative) Urine RBC Not seen (0-5) /hpf Urine WBC 0-5 (0-5) /hpf Ur Squamous Epith Cells Not seen (0-5) /hpf Amorphous Sediment Moderate H (NOT SEEN) /hpf Urine Bacteria Few (FEW) /hpf Urine Mucus Not seen (FEW) /hpf Med Orders - Current: Current Medications Hydrocodone Bitart/Acetaminophen (Letcher 325-5 Mg) 1 tab PO Q4H PRN PRN Reason: Pain (moderate 4-6) Docusate Sodium (Colace) 100 mg PO BID PRN PRN Reason: Constipation Folic Acid (Folic Acid) [address] [facility] Heparin Sodium (Porcine) (Heparin Sodium) 5,000 units SUBCUT Q8H [facility] Last Admin: 12/03/18 08:39 Dose: 5,000 units Hydralazine HCl (Apresoline) 10 mg IVPUSH Q4H PRN PRN Reason: Hypertension Hydromorphone HCl (Dilaudid) 0.5 mg IVPUSH Q2H PRN PRN Reason: Pain Last Admin: 12/03/18 08:40 Dose: 0.5 mg Lactated Ringer's (Ringers, Lactated) 1,000 mls @ 75 mls/hr IV ASDIRECTED [facility] Last Admin: 12/03/18 06:13 Dose: 125 mls/hr Lorazepam (Ativan) 0 mg IVPUSH ASDIRECTED PRN; Protocol PRN Reason: withdrawl Miscellaneous Information (Remove Patch) [address] [facility] Nicotine (Habitrol) [address] [facility] Ondansetron HCl (Zofran) 4 mg IVPUSH ONETIME PRN PRN Reason: Nausea/Vomiting Ondansetron HCl (Zofran) 4 mg IVPUSH Q8H PRN PRN Reason: Nausea Sodium Chloride (Saline Flush) 10 ml FLUSH ASDIRECTED PRN PRN Reason: Keep Vein Open Last Admin: 12/02/18 16:51 Dose: 10 ml Thiamine HCl (Vitamin B-1) [address] [facility] Discontinued Medications Albuterol (Proventil Neb Soln) 2.5 mg NEB ONETIME ONE Stop: 12/02/18 20:22 Last Admin: 12/02/18 20:27 Dose: 2.5 mg Diatrizoate Meglum/Diatrizoate Sod (Gastrografin 37%) 90 ml PO ONETIME ONE Stop: 12/02/18 15:17 Last Admin: 12/02/18 16:51 Dose: 90 ml Fentanyl (Sublimaze) Confirm Administered Dose 250 mcg .ROUTE .STK-MED ONE Stop: 12/02/18 20:04 Fentanyl (Sublimaze) 50 mcg IVPUSH Q5M PRN PRN Reason: Pain Fentanyl (Sublimaze) Confirm Administered Dose 250 mcg .ROUTE .STK-MED ONE Stop: 12/02/18 21:28 Folic Acid (Folic Acid) [address] [facility] Glycopyrrolate () Confirm Administered Dose 1 mg .ROUTE .STK-MED ONE Stop: 12/02/18 21:54 Hydromorphone HCl (Dilaudid) 0.5 mg IVPUSH ONETIME ONE Stop: 12/02/18 15:08 Last Admin: 12/02/18 15:18 Dose: 0.5 mg Hydromorphone HCl (Dilaudid) 0.5 mg IVPUSH ONETIME ONE Stop: 12/02/18 17:25 Last Admin: 12/02/18 17:35 Dose: 0.5 mg Hydromorphone HCl (Dilaudid) Confirm Administered Dose 1 mg .ROUTE .STK-MED ONE Stop: 12/02/18 21:22 Hydromorphone HCl (Dilaudid) 0.5 mg IVPUSH Q10M PRN PRN Reason: Pain (severe 7-10) Sodium Chloride (Normal Saline) 1,000 mls @ 150 mls/hr IV ASDIRECTED [facility] Stop: 12/03/18 06:00 Last Admin: 12/03/18 01:51 Dose: 150 mls/hr Lidocaine HCl (Xylocaine-Mpf 1%) Confirm Administered Dose 4 mls @ as directed .ROUTE .STK-MED ONE Stop: 12/02/18 20:03 Ertapenem 1 gm/ Sodium (Chloride) 100 mls @ 100 mls/hr IV ONETIME ONE Stop: 12/02/18 21:07 Last Admin: 12/02/18 20:42 Dose: 100 mls/hr Lactated Ringer's (Ringers, Lactated) Confirm Administered Dose 1,000 mls @ as directed .ROUTE .STK-MED ONE Stop: 12/02/18 21:17 Lactated Ringer's (Ringers, Lactated) Confirm Administered Dose 1,000 mls @ as directed .ROUTE .STK-MED ONE Stop: 12/02/18 21:17 Lactated Ringer's (Ringers, Lactated) Confirm Administered Dose 1,000 mls @ as directed .ROUTE .STK-MED ONE Stop: 12/02/18 22:25 Iopamidol (Isovue-300 (61%)) 100 ml IVPUSH ONETIME ONE Stop: 12/02/18 15:17 Last Admin: 12/02/18 16:51 Dose: 100 ml Ketamine HCl (Ketalar) Confirm Administered Dose 500 mg .ROUTE .STK-MED ONE Stop: 12/02/18 21:28 Ketorolac Tromethamine (Toradol) 30 mg IVPUSH ONETIME ONE Stop: 12/02/18 23:10 Last Admin: 12/02/18 23:15 Dose: 30 mg Labetalol HCl (Normodyne) Confirm Administered Dose 100 mg .ROUTE .STK-MED ONE Stop: 12/02/18 23:16 Lidocaine HCl (Xylocaine 1%) Confirm Administered Dose 50 ml .ROUTE .STK-MED ONE Stop: 12/02/18 21:07 Last Admin: 12/02/18 21:10 Dose: 45 ml Midazolam HCl (Versed 1 Mg/Ml) Confirm Administered Dose 2 mg .ROUTE .STK-MED ONE Stop: 12/02/18 20:03 Neostigmine Methylsulfate (Neostigmine) Confirm Administered Dose 5 mg .ROUTE .STK-MED ONE Stop: 12/02/18 21:54 Ondansetron HCl (Zofran) 4 mg IVPUSH ONETIME ONE Stop: 12/02/18 15:08 Last Admin: 12/02/18 15:18 Dose: 4 mg Ondansetron HCl (Zofran) Confirm Administered Dose 4 mg .ROUTE .STK-MED ONE Stop: 12/02/18 20:03 Propofol (Diprivan 20 Ml) Confirm Administered Dose 200 mg .ROUTE .STK-MED ONE Stop: 12/02/18 20:03 Rocuronium Ragan (Zemuron) Confirm Administered Dose 50 mg .ROUTE .STK-MED ONE Stop: 12/02/18 20:03 Rocuronium Ragan (Zemuron) Confirm Administered Dose 50 mg .ROUTE .STK-MED ONE Stop: 12/02/18 23:09 Sodium Chloride (Saline Flush) 10 ml FLUSH ONETIME ONE Stop: 12/02/18 15:17 Last Admin: 12/02/18 17:17 Dose: Not Given Succinylcholine Chloride (Succinylcholine In Ns Pf) Confirm Administered Dose 100 mg .ROUTE .STK-MED ONE Stop: 12/02/18 20:03 Thiamine HCl (Vitamin B-1) 100 mg PO DAILY [facility] - Exam Wound/Incisions: Healing Well General: Alert, Oriented, Cooperative, No Acute Distress GI/Abdominal Exam: Soft, No Distention (around the incision), Tender - Problem List Review Problem List Initiated/Reviewed/Updated: No - My Orders Last 24 Hours: Active Orders 24 hr Category Date Time Status Admission Status [Patient Status] [ADT] Routine ADT 12/03/18 07:54 Active Patient Status [ADT] Routine ADT 12/03/18 08:35 Ordered Ambulate [RC] .TID Care 12/03/18 08:36 Ordered Antiembolic Devices [RC] .Routine Care 12/03/18 08:38 Ordered Antiembolic Devices [RC] PER UNIT ROUTINE Care 12/03/18 08:22 Active CIWAA Assessment [RC] Q4HR Care 12/02/18 20:29 Active Communication Order [RC] ASDIRECTED Care 12/03/18 08:19 Active Cooling Warming Measures [RC] ASDIRECTED Care 12/02/18 21:24 Active EKG Documentation Completion [RC] STAT Care 12/02/18 19:45 Inactive Intake and Output [RC] QSHIFT Care 12/03/18 08:36 Ordered Oxygen Therapy [RC] ASDIRECTED Care 12/02/18 21:24 Active Oxygen Therapy [RC] PRN Care 12/03/18 08:35 Ordered Pulse Oximetry [RC] ASDIRECTED Care 12/02/18 21:24 Active RT Aerosol Therapy [RC] ASDIRECTED Care 12/02/18 20:21 Active RT Incentive Spirometry [RC] Q1HWA Care 12/03/18 08:35 Ordered Up ad Margaret [RC] ASDIRECTED Care 12/03/18 08:35 Ordered Up to Chair [RC] .TID Care 12/03/18 08:36 Ordered Urinary Catheter Assessment [RC] 04,10,16,22 Care 12/02/18 20:08 Active Urinary Catheter Removal [RC] Per Unit Routine Care 12/03/18 08:35 Ordered VTE/DVT Education [RC] PER UNIT ROUTINE Care 12/03/18 08:38 Ordered Vital Signs [RC] PER UNIT ROUTINE Care 12/03/18 08:35 Ordered Clear Liquid Diet [DIET] Diet 12/03/18 Lunch Active BASIC METABOLIC PANEL,BMP [CHEM] AM Lab 12/04/18 05:11 Ordered BASIC METABOLIC PANEL,BMP [CHEM] AM Lab 12/05/18 05:11 Ordered BASIC METABOLIC PANEL,BMP [CHEM] AM Lab 12/06/18 05:11 Ordered BASIC METABOLIC PANEL,BMP [CHEM] AM Lab 12/07/18 05:11 Ordered BASIC METABOLIC PANEL,BMP [CHEM] Routine Lab 12/03/18 08:30 Ordered CBC WITH AUTO DIFF [HEME] AM Lab 12/04/18 05:11 Ordered CBC WITH AUTO DIFF [HEME] AM Lab 12/05/18 05:11 Ordered CBC WITH AUTO DIFF [HEME] AM Lab 12/06/18 05:11 Ordered CBC WITH AUTO DIFF [HEME] AM Lab 12/07/18 05:11 Ordered CBC WITH AUTO DIFF [HEME] Routine Lab 12/03/18 08:30 Ordered MAGNESIUM [CHEM] AM Lab 12/04/18 05:11 Ordered MAGNESIUM [CHEM] AM Lab 12/05/18 05:11 Ordered MAGNESIUM [CHEM] AM Lab 12/06/18 05:11 Ordered MAGNESIUM [CHEM] AM Lab 12/07/18 05:11 Ordered MAGNESIUM [CHEM] Routine Lab 12/03/18 08:30 Ordered Acetaminophen/HYDROcodone [Letcher 325-5 MG] Med 12/03/18 08:35 Ordered 1 tab PO Q4H PRN Docusate Sodium [Colace] Med 12/03/18 08:35 Ordered 100 mg PO BID PRN Folic Acid Med 12/03/18 09:00 Active 1 mg IV DAILY HYDROmorphone [Dilaudid] Med 12/03/18 00:43 Active 0.5 mg IVPUSH Q2H PRN Heparin Sodium Med 12/03/18 08:30 Active 5,000 units SUBCUT Q8H LORazepam [Ativan] Med 12/03/18 08:27 Ordered See Protocol IVPUSH ASDIRECTED PRN Lactated Ringers [Ringers, Lactated] 1,000 ml Med 12/03/18 06:00 Active IV ASDIRECTED Nicotine [Habitrol] Med 12/03/18 09:00 Ordered 21 mg TRDERM DAILY Ondansetron [Zofran] Med 12/02/18 21:24 Active 4 mg IVPUSH ONETIME PRN Ondansetron [Zofran] Med 12/03/18 00:44 Active 4 mg IVPUSH Q8H PRN Remove Patch Med 12/04/18 09:00 Active 1 ea TRDERM DAILY Sodium Chloride 0.9% [Saline Flush] Med 12/02/18 15:09 Active 10 ml FLUSH ASDIRECTED PRN Thiamine [Vitamin B-1] Med 12/03/18 09:00 Active 100 mg IVPUSH DAILY hydrALAZINE [Apresoline] Med 12/02/18 20:30 Active 10 mg IVPUSH Q4H PRN Abdominal Binder [OM.PC] Per Unit Routine Oth 12/03/18 08:36 Ordered DVT/VTE Prophylaxis Reflex [OM.PC] Routine Oth 12/03/18 08:35 Ordered Peripheral IV Insertion Adult [OM.PC] Routine Oth 12/02/18 15:09 Ordered SCD [Sequential Compression Device] [OM.PC] Routine Oth 12/03/18 08:22 Ordered Schedule Procedure [COMM] Stat Oth 12/02/18 19:47 Ordered Resuscitation Status Routine Resus Stat 12/02/18 20:08 Ordered EKG 12 Lead [EK] Routine Ther 12/02/18 19:43 Ordered Medication Orders Hydrocodone Bitart/Acetaminophen ([place]cher 325-5 Mg) 1 tab PO Q4H PRN PRN Reason: Pain (moderate 4-6) Docusate Sodium (Colace) 100 mg PO BID PRN PRN Reason: Constipation Folic Acid (Folic Acid) 1 mg IV DAILY [facility] Heparin Sodium (Porcine) (Heparin Sodium) 5,000 units SUBCUT Q8H [facility] Last Admin: 12/03/18 08:39 Dose: 5,000 units Hydralazine HCl (Apresoline) 10 mg IVPUSH Q4H PRN PRN Reason: Hypertension Hydromorphone HCl (Dilaudid) 0.5 mg IVPUSH Q2H PRN PRN Reason: Pain Last Admin: 12/03/18 08:40 Dose: 0.5 mg Lactated Ringer's (Ringers, Lactated) 1,000 mls @ 75 mls/hr IV ASDIRECTED [facility] Last Admin: 12/03/18 06:13 Dose: 125 mls/hr Lorazepam (Ativan) 0 mg IVPUSH ASDIRECTED PRN; Protocol PRN Reason: withdrawl Miscellaneous Information (Remove Patch) [address] [facility] Nicotine (Habitrol) [address] [facility] Ondansetron HCl (Zofran) 4 mg IVPUSH ONETIME PRN PRN Reason: Nausea/Vomiting Ondansetron HCl (Zofran) 4 mg IVPUSH Q8H PRN PRN Reason: Nausea Sodium Chloride (Saline Flush) 10 ml FLUSH ASDIRECTED PRN PRN Reason: Keep Vein Open Last Admin: 12/02/18 16:51 Dose: 10 ml Admin: 12/02/18 15:18 Dose: 10 ml Thiamine HCl (Vitamin B-1) 100 mg IVPUSH DAILY [facility] - Assessment Assessment (Free Text/Narrative):: Progressing well. - Plan Plan (Free Text/Narrative):: POD1 Open SBR. DOing well. - ok to start CLD and PO meds today - AMbulate TID - DVT PPx with SQH and SCDs - Wean oxygen as tolerated - Pain control
[2018-12-03] MEDS ORDERED: Folic Acid 1 MG Tab PO SCH (09:00)
[2018-12-03] MEDS ORDERED: Folic Acid 50 MG/10 ML MDV IV SCH (09:00)
[2018-12-03] MEDS ORDERED: Thiamine 200 MG/2 ML MDV IVPUSH SCH (09:00)
[2018-12-03] MEDS ORDERED: Thiamine 100 MG Tab PO SCH (09:00)
--- NOTE | 2018-12-03 09:10 | PCM.CONSN ---
<Carlyle Espinosa - Last Filed: 12/03/18 13:47> - General Info Date of Service: 12/03/18 Admission Dx/Problem (Free Text): Admission Diagnosis/Problem Admission Diagnosis/Problem Small bowel obstruction Functional Status: Reports: Pain Controlled, Tolerating Diet, Ambulating, Urinating, Incentive Spirometry. Denies: New Symptoms - Review of Systems General: Reports: No Symptoms. Denies: Fever, Weakness, Fatigue, Malaise, Chills HEENT: Reports: No Symptoms. Denies: Headaches, Sinus Congestion, Sore Throat Pulmonary: Reports: No Symptoms. Denies: Shortness of Breath, Cough, Sputum, Wheezing Cardiovascular: Reports: No Symptoms. Denies: Chest Pain, Palpitations, Dyspnea on Exertion, Edema Gastrointestinal: Reports: Abdominal Pain. Denies: Constipation, Diarrhea, Nausea, Vomiting Genitourinary: Reports: No Symptoms. Denies: Pain Musculoskeletal: Reports: No Symptoms Skin: Reports: No Symptoms. Denies: Cyanosis Neurological: Reports: No Symptoms. Denies: Confusion, Numbness, Pre-Existing Deficit, Trouble Speaking, Difficulty Walking, Weakness, Gait Disturbance Psychiatric: Reports: No Symptoms. Denies: Confusion - Patient Data Vitals - Most Recent: Last Vital Signs Temp 99.0 F 12/03/18 08:11 Pulse 85 12/03/18 08:11 Resp 16 12/03/18 08:11 BP 141/74 H 12/03/18 08:11 Pulse Ox 99 12/03/18 08:11 Weight - Most Recent: 179 lb 3.2 oz I&O - Last 24 Hours: Intake & Output 12/02/18 12/03/18 12/03/18 22:59 06:59 14:59 Intake Total 1850 Output Total 570 Balance 1280 Lab Results Last 24 Hours: Laboratory Results - last 24 hr 12/02/18 12/02/18 12/02/18 Range/Units 15:50 15:50 17:21 WBC 12.62 H (4.23-9.07) K/mm3 RBC 4.16 L (4.63-6.08) M/mm3 Hgb 13.8 (13.7-17.5) gm/dl Hct 41.1 (40.1-51.0) % MCV 98.8 H (79.0-92.2) fl MCH 33.2 H (25.7-32.2) pg MCHC 33.6 (32.2-35.5) g/dl RDW Std Deviation 45.3 H (35.1-43.9) fL Plt Count 295 (163-337) K/mm3 MPV 9.2 L (9.4-12.3) fl Neutrophils % (Manual) 92 H (40-60) % Band Neutrophils % 0 (0-10) % Lymphocytes % (Manual) 7 L (20-40) % Atypical Lymphs % 0 % Monocytes % (Manual) 1 L (2-10) % Eosinophils % (Manual) 0 L (0.8-7.0) % Basophils % (Manual) 0 L (0.2-1.2) Platelet Estimate Adequate RBC Morph Comment Normal Sodium 137 (136-145) mEq/L Potassium 3.5 (3.5-5.1) mEq/L Chloride 99 (98-107) mEq/L Carbon Dioxide 24 (21-32) mEq/L Anion Gap 17.5 H (5-15) BUN 8 (7-18) mg/dL Creatinine 0.8 (0.7-1.3) mg/dL Est Cr Clr Drug Dosing 109.13 mL/min Estimated GFR (MDRD) > 60 (>60) mL/min BUN/Creatinine Ratio 10.0 L (14-18) Glucose 137 H (74-106) mg/dL Calcium 9.3 (8.5-10.1) mg/dL Total Bilirubin 0.7 (0.2-1.0) mg/dL AST 24 (15-37) U/L ALT 30 (16-63) U/L Alkaline Phosphatase 81 (46-116) U/L C-Reactive Protein < 0.2 (<1.0) mg/dL Total Protein 7.6 (6.4-8.2) g/dl Albumin 4.0 (3.4-5.0) g/dl Globulin 3.6 gm/dL Albumin/Globulin Ratio 1.1 (1-2) Urine Color Yellow (Yellow) Urine Appearance Clear (Clear) Urine pH 7.0 (5.0-8.0) Ur Specific [place] 1.015 (1.005-1.030) Urine Protein Trace H (Negative) Urine Glucose (UA) Negative (Negative) Urine Ketones 4+ H (Negative) Urine Occult Blood Negative (Negative) Urine Nitrite Negative (Negative) Urine Bilirubin Negative (Negative) Urine Urobilinogen 0.2 (0.2-1.0) Ur Leukocyte Esterase Negative (Negative) Urine RBC Not seen (0-5) /hpf Urine WBC 0-5 (0-5) /hpf Ur Squamous Epith Cells Not seen (0-5) /hpf Amorphous Sediment Moderate H (NOT SEEN) /hpf Urine Bacteria Few (FEW) /hpf Urine Mucus Not seen (FEW) /hpf Med Orders - Current: Current Medications Hydrocodone Bitart/Acetaminophen (Dawson 325-5 Mg) 1 tab PO Q4H PRN PRN Reason: Pain (moderate 4-6) Docusate Sodium (Colace) 100 mg PO BID PRN PRN Reason: Constipation Heparin Sodium (Porcine) (Heparin Sodium) 5,000 units SUBCUT Q8H [facility] Last Admin: 12/03/18 08:39 Dose: 5,000 units Hydralazine HCl (Apresoline) 10 mg IVPUSH Q4H PRN PRN Reason: Hypertension Hydromorphone HCl (Dilaudid) 0.5 mg IVPUSH Q2H PRN PRN Reason: Pain Last Admin: 12/03/18 08:40 Dose: 0.5 mg Lactated Ringer's (Ringers, Lactated) 1,000 mls @ 75 mls/hr IV ASDIRECTED [facility] Last Admin: 12/03/18 06:13 Dose: 125 mls/hr Lorazepam (Ativan) 0 mg IVPUSH ASDIRECTED PRN; Protocol PRN Reason: withdrawl Miscellaneous Information (Remove Patch) 1 ea TRDERM DAILY [facility] Nicotine (Habitrol) 21 mg TRDERM DAILY [facility] Ondansetron HCl (Zofran) 4 mg IVPUSH ONETIME PRN PRN Reason: Nausea/Vomiting Ondansetron HCl (Zofran) 4 mg IVPUSH Q8H PRN PRN Reason: Nausea Sodium Chloride (Saline Flush) 10 ml FLUSH ASDIRECTED PRN PRN Reason: Keep Vein Open Last Admin: 12/02/18 16:51 Dose: 10 ml Discontinued Medications Albuterol (Proventil Neb Soln) 2.5 mg NEB ONETIME ONE Stop: 12/02/18 20:22 Last Admin: 12/02/18 20:27 Dose: 2.5 mg Diatrizoate Meglum/Diatrizoate Sod (Gastrografin 37%) 90 ml PO ONETIME ONE Stop: 12/02/18 15:17 Last Admin: 12/02/18 16:51 Dose: 90 ml Fentanyl (Sublimaze) Confirm Administered Dose 250 mcg .ROUTE .STK-MED ONE Stop: 12/02/18 20:04 Fentanyl (Sublimaze) 50 mcg IVPUSH Q5M PRN PRN Reason: Pain Fentanyl (Sublimaze) Confirm Administered Dose 250 mcg .ROUTE .STK-MED ONE Stop: 12/02/18 21:28 Folic Acid (Folic Acid) 1 mg PO DAILY [facility] Glycopyrrolate () Confirm Administered Dose 1 mg .ROUTE .STK-MED ONE Stop: 12/02/18 21:54 Hydromorphone HCl (Dilaudid) 0.5 mg IVPUSH ONETIME ONE Stop: 12/02/18 15:08 Last Admin: 12/02/18 15:18 Dose: 0.5 mg Hydromorphone HCl (Dilaudid) 0.5 mg IVPUSH ONETIME ONE Stop: 12/02/18 17:25 Last Admin: 12/02/18 17:35 Dose: 0.5 mg Hydromorphone HCl (Dilaudid) Confirm Administered Dose 1 mg .ROUTE .STK-MED ONE Stop: 12/02/18 21:22 Hydromorphone HCl (Dilaudid) 0.5 mg IVPUSH Q10M PRN PRN Reason: Pain (severe 7-10) Sodium Chloride (Normal Saline) 1,000 mls @ 150 mls/hr IV ASDIRECTED [facility] Stop: 12/03/18 06:00 Last Admin: 12/03/18 01:51 Dose: 150 mls/hr Lidocaine HCl (Xylocaine-Mpf 1%) Confirm Administered Dose 4 mls @ as directed .ROUTE .STK-MED ONE Stop: 12/02/18 20:03 Ertapenem 1 gm/ Sodium (Chloride) 100 mls @ 100 mls/hr IV ONETIME ONE Stop: 12/02/18 21:07 Last Admin: 12/02/18 20:42 Dose: 100 mls/hr Lactated Ringer's (Ringers, Lactated) Confirm Administered Dose 1,000 mls @ as directed .ROUTE .STK-MED ONE Stop: 12/02/18 21:17 Lactated Ringer's (Ringers, Lactated) Confirm Administered Dose 1,000 mls @ as directed .ROUTE .STK-MED ONE Stop: 12/02/18 21:17 Lactated Ringer's (Ringers, Lactated) Confirm Administered Dose 1,000 mls @ as directed .ROUTE .STK-MED ONE Stop: 12/02/18 22:25 Iopamidol (Isovue-300 (61%)) 100 ml IVPUSH ONETIME ONE Stop: 12/02/18 15:17 Last Admin: 12/02/18 16:51 Dose: 100 ml Ketamine HCl (Ketalar) Confirm Administered Dose 500 mg .ROUTE .STK-MED ONE Stop: 12/02/18 21:28 Ketorolac Tromethamine (Toradol) 30 mg IVPUSH ONETIME ONE Stop: 12/02/18 23:10 Last Admin: 12/02/18 23:15 Dose: 30 mg Labetalol HCl (Normodyne) Confirm Administered Dose 100 mg .ROUTE .STK-MED ONE Stop: 12/02/18 23:16 Lidocaine HCl (Xylocaine 1%) Confirm Administered Dose 50 ml .ROUTE .STK-MED ONE Stop: 12/02/18 21:07 Last Admin: 12/02/18 21:10 Dose: 45 ml Midazolam HCl (Versed 1 Mg/Ml) Confirm Administered Dose 2 mg .ROUTE .STK-MED ONE Stop: 12/02/18 20:03 Neostigmine Methylsulfate (Neostigmine) Confirm Administered Dose 5 mg .ROUTE .STK-MED ONE Stop: 12/02/18 21:54 Ondansetron HCl (Zofran) 4 mg IVPUSH ONETIME ONE Stop: 12/02/18 15:08 Last Admin: 12/02/18 15:18 Dose: 4 mg Ondansetron HCl (Zofran) Confirm Administered Dose 4 mg .ROUTE .STK-MED ONE Stop: 12/02/18 20:03 Propofol (Diprivan 20 Ml) Confirm Administered Dose 200 mg .ROUTE .STK-MED ONE Stop: 12/02/18 20:03 Rocuronium Rush (Zemuron) Confirm Administered Dose 50 mg .ROUTE .STK-MED ONE Stop: 12/02/18 20:03 Rocuronium Rush (Zemuron) Confirm Administered Dose 50 mg .ROUTE .STK-MED ONE Stop: 12/02/18 23:09 Sodium Chloride (Saline Flush) 10 ml FLUSH ONETIME ONE Stop: 12/02/18 15:17 Last Admin: 12/02/18 17:17 Dose: Not Given Succinylcholine Chloride (Succinylcholine In Ns Pf) Confirm Administered Dose 100 mg .ROUTE .STK-MED ONE Stop: 12/02/18 20:03 Thiamine HCl (Vitamin B-1) 100 mg PO DAILY [facility] - Exam Quality Assessment: DVT Prophylaxis General: Alert, Oriented, Cooperative, No Acute Distress HEENT: Pupils Equal, Pupils Reactive, EOMI, Mucous Membr. Moist/[place] Neck: Supple, Trachea Midline Lungs: Clear to Auscultation, Normal Respiratory Effort Cardiovascular: Regular Rate, Regular Rhythm GI/Abdominal Exam: No Distention, Tender, Abnormal Bowel Sounds, Other (Large abominal binder on patient. ) (Male) Exam: Deferred Back Exam: Normal Inspection, Full Range of Motion Extremities: Normal Inspection, Normal Range of Motion, Non-Tender, No Pedal Edema, Normal Capillary Refill Peripheral Pulses: 3+: Radial (L), Radial (R), Dorsalis Pedis (L), Dorsalis Pedis (R) Skin: Warm, Dry, Intact Neurological: No New Focal Deficit Psy/Mental Status: Alert, Normal Affect, Normal Mood Consult PN Assessment/Plan POD#: 1 Procedures: Procedures X-RAY EXAM OF SKULL (06/29/17) (1) Small bowel obstruction SNOMED Code(s): 022576678 Code(s): K56.609 - UNSP INTESTNL OBST, UNSP TO PARTIAL VERSUS COMPLETE OBST Current Visit: Yes (2) Hypomagnesemia SNOMED Code(s): 028739443 Code(s): E83.42 - HYPOMAGNESEMIA Priority: High Current Visit: Yes (3) Chronic alcohol use SNOMED Code(s): 137614 Code(s): Z72.89 - OTHER PROBLEMS RELATED TO LIFESTYLE Priority: High Current Visit: Yes (4) Tobacco use disorder SNOMED Code(s): 648749040 Code(s): F17.200 - NICOTINE DEPENDENCE, UNSPECIFIED, UNCOMPLICATED Priority : Medium Current Visit: Yes (5) Hyperlipidemia SNOMED Code(s): 63880040 Code(s): E78.5 - HYPERLIPIDEMIA, UNSPECIFIED Priority: High Current Visit : Yes Qualifiers: Hyperlipidemia type: unspecified Qualified Code(s): E78.5 - Hyperlipidemia , unspecified Problem List Initiated/Reviewed/Updated: Yes My Orders Last 24 Hours: My Active Orders 12/03/18 08:19 Communication Order [RC] ASDIRECTED 12/03/18 08:27 LORazepam [Ativan] See Protocol IVPUSH ASDIRECTED PRN 12/03/18 08:30 BASIC METABOLIC PANEL,BMP [CHEM] Routine CBC WITH AUTO DIFF [HEME] Routine MAGNESIUM [CHEM] Routine 12/03/18 09:00 Nicotine [Habitrol] 21 mg TRDERM DAILY 12/04/18 05:11 BASIC METABOLIC PANEL,BMP [CHEM] AM CBC WITH AUTO DIFF [HEME] AM MAGNESIUM [CHEM] AM 12/04/18 09:00 Remove Patch 1 ea TRDERM DAILY 12/05/18 05:11 BASIC METABOLIC PANEL,BMP [CHEM] AM CBC WITH AUTO DIFF [HEME] AM MAGNESIUM [CHEM] AM 12/06/18 05:11 BASIC METABOLIC PANEL,BMP [CHEM] AM CBC WITH AUTO DIFF [HEME] AM MAGNESIUM [CHEM] AM 12/07/18 05:11 BASIC METABOLIC PANEL,BMP [CHEM] AM CBC WITH AUTO DIFF [HEME] AM MAGNESIUM [CHEM] AM Plan: Assessment * Acute onset abdominal pain with small bowel obstruction, strictures, and small bowel inflammation undergoing diagnostic laparoscopy with possible bowel resection and conversion to open surgery * Hypertension on lisinopril and spironolactone * Hyperlipidemia * Tobaccoism * ETOH use : 6-12 beers daily * Hypomagnesemia * Diet being advanced to clear liquids Recommendation * Restart home medications as soon as able. * CIWA protocol. Patient will be at increased risk for alcohol withdrawal after 24-48 hours. * Offer nicotine patch. * Hydralazine 10 mg every 4 hours when necessary systolic blood pressure greater than 200 or diastolic blood pressure greater than 110. * Encourage incentive spirometry * Change home statin to high intensity * Supplement magnesium * Patient is at low cardiovascular risk in moderate respiratory risk population. This is an emergency surgery therefore increasing risk. * Thank you for letting us participate in the care of this patient. We will follow closely with you. <Luther,Volney L III - Last Filed: 12/03/18 17:54> - Patient Data Vitals - Most Recent: Last Vital Signs Temp 98.2 F 12/03/18 16:40 Pulse 90 12/03/18 16:40 Resp 20 12/03/18 16:40 BP 145/80 H 12/03/18 16:40 Pulse Ox 92 L 12/03/18 16:40 I&O - Last 24 Hours: Intake & Output 12/03/18 12/03/18 12/03/18 06:59 14:59 22:59 Intake Total 1850 160 Output Total 570 Balance 1280 160 Lab Results Last 24 Hours: Laboratory Results - last 24 hr 12/03/18 12/03/18 Range/Units 09:05 09:05 WBC 8.15 (4.23-9.07) K/mm3 RBC 3.21 L (4.63-6.08) M/mm3 Hgb 10.8 L D (13.7-17.5) gm/dl Hct 32.8 L (40.1-51.0) % MCV 102.2 H D (79.0-92.2) fl MCH 33.6 H (25.7-32.2) pg MCHC 32.9 (32.2-35.5) g/dl RDW Std Deviation 48.1 H (35.1-43.9) fL Plt Count 224 (163-337) K/mm3 MPV 8.7 L (9.4-12.3) fl Neut % (Auto) 86.4 H (34.0-67.9) % Lymph % (Auto) 7.5 L (21.8-53.1) % [place] % (Auto) 5.8 (5.3-12.2) % Eos % (Auto) 0.1 L (0.8-7.0) Baso % (Auto) 0.1 (0.1-1.2) % Neut # (Auto) 7.04 H (1.78-5.38) K/mm3 Lymph # (Auto) 0.61 L (1.32-3.57) K/mm3 [place] # (Auto) 0.47 (0.30-0.82) K/mm3 Eos # (Auto) 0.01 L (0.04-0.54) K/mm3 Baso # (Auto) 0.01 (0.01-0.08) K/mm3 Sodium 138 (136-145) mEq/L Potassium 4.1 (3.5-5.1) mEq/L Chloride 106 (98-107) mEq/L Carbon Dioxide 26 (21-32) mEq/L Anion Gap 10.1 (5-15) BUN 11 (7-18) mg/dL Creatinine 0.7 (0.7-1.3) mg/dL Est Cr Clr Drug Dosing 124.71 mL/min Estimated GFR (MDRD) > 60 (>60) mL/min BUN/Creatinine Ratio 15.7 (14-18) Glucose 112 H (74-106) mg/dL Calcium 7.2 L D (8.5-10.1) mg/dL Magnesium 1.7 L (1.8-2.4) mg/dl Med Orders - Current: Current Medications Hydrocodone Bitart/Acetaminophen (Dawson 325-5 Mg) 1 tab PO Q4H PRN PRN Reason: Pain (moderate 4-6) Amlodipine Besylate (Norvasc) 5 mg PO DAILY [facility] Docusate Sodium (Colace) 100 mg PO BID PRN PRN Reason: Constipation Last Admin: 12/03/18 10:24 Dose: 100 mg Folic Acid (Folic Acid) 1 mg PO DAILY [facility] Last Admin: 12/03/18 10:25 Dose: 1 mg Heparin Sodium (Porcine) (Heparin Sodium) 5,000 units SUBCUT Q8H [facility] Last Admin: 12/03/18 16:42 Dose: 5,000 units Hydralazine HCl (Apresoline) 10 mg IVPUSH Q4H PRN PRN Reason: Hypertension Hydromorphone HCl (Dilaudid) 0.5 mg IVPUSH Q2H PRN PRN Reason: Pain Last Admin: 12/03/18 08:40 Dose: 0.5 mg Lactated Ringer's (Ringers, Lactated) 1,000 mls @ 75 mls/hr IV ASDIRECTED [facility] Last Admin: 12/03/18 14:37 Dose: 125 mls/hr Lorazepam (Ativan) 0 mg IVPUSH ASDIRECTED PRN; Protocol PRN Reason: withdrawl Miscellaneous Information (Remove Patch) 1 ea TRDERM DAILY [facility] Nicotine (Habitrol) 21 mg TRDERM DAILY [facility] Last Admin: 12/03/18 10:27 Dose: 21 mg Ondansetron HCl (Zofran) 4 mg IVPUSH Q8H PRN PRN Reason: Nausea Rosuvastatin Calcium (Crestor) 20 mg PO DAILY [facility] Sodium Chloride (Saline Flush) 10 ml FLUSH ASDIRECTED PRN PRN Reason: Keep Vein Open Last Admin: 12/02/18 16:51 Dose: 10 ml Spironolactone (Aldactone) 25 mg PO DAILY [facility] Thiamine HCl (Vitamin B-1) 100 mg PO DAILY [facility] Last Admin: 12/03/18 10:24 Dose: 100 mg Discontinued Medications Albuterol (Proventil Neb Soln) 2.5 mg NEB ONETIME ONE Stop: 12/02/18 20:22 Last Admin: 12/02/18 20:27 Dose: 2.5 mg Amlodipine Besylate (Norvasc) 5 mg PO ONETIME ONE Stop: 12/03/18 10:16 Last Admin: 12/03/18 10:25 Dose: 5 mg Diatrizoate Meglum/Diatrizoate Sod (Gastrografin 37%) 90 ml PO ONETIME ONE Stop: 12/02/18 15:17 Last Admin: 12/02/18 16:51 Dose: 90 ml Fentanyl (Sublimaze) Confirm Administered Dose 250 mcg .ROUTE .STK-MED ONE Stop: 12/02/18 20:04 Fentanyl (Sublimaze) 50 mcg IVPUSH Q5M PRN PRN Reason: Pain Fentanyl (Sublimaze) Confirm Administered Dose 250 mcg .ROUTE .STK-MED ONE Stop: 12/02/18 21:28 Folic Acid (Folic Acid) 1 mg PO DAILY [facility] Glycopyrrolate () Confirm Administered Dose 1 mg .ROUTE .STK-MED ONE Stop: 12/02/18 21:54 Hydromorphone HCl (Dilaudid) 0.5 mg IVPUSH ONETIME ONE Stop: 12/02/18 15:08 Last Admin: 12/02/18 15:18 Dose: 0.5 mg Hydromorphone HCl (Dilaudid) 0.5 mg IVPUSH ONETIME ONE Stop: 12/02/18 17:25 Last Admin: 12/02/18 17:35 Dose: 0.5 mg Hydromorphone HCl (Dilaudid) Confirm Administered Dose 1 mg .ROUTE .STK-MED ONE Stop: 12/02/18 21:22 Hydromorphone HCl (Dilaudid) 0.5 mg IVPUSH Q10M PRN PRN Reason: Pain (severe 7-10) Sodium Chloride (Normal Saline) 1,000 mls @ 150 mls/hr IV ASDIRECTED [facility] Stop: 12/03/18 06:00 Last Admin: 12/03/18 01:51 Dose: 150 mls/hr Lidocaine HCl (Xylocaine-Mpf 1%) Confirm Administered Dose 4 mls @ as directed .ROUTE .STK-MED ONE Stop: 12/02/18 20:03 Ertapenem 1 gm/ Sodium (Chloride) 100 mls @ 100 mls/hr IV ONETIME ONE Stop: 12/02/18 21:07 Last Admin: 12/02/18 20:42 Dose: 100 mls/hr Lactated Ringer's (Ringers, Lactated) Confirm Administered Dose 1,000 mls @ as directed .ROUTE .STK-MED ONE Stop: 12/02/18 21:17 Lactated Ringer's (Ringers, Lactated) Confirm Administered Dose 1,000 mls @ as directed .ROUTE .STK-MED ONE Stop: 12/02/18 21:17 Lactated Ringer's (Ringers, Lactated) Confirm Administered Dose 1,000 mls @ as directed .ROUTE .STK-MED ONE Stop: 12/02/18 22:25 Magnesium Sulfate 2 gm/ Premix 50 mls @ 25 mls/hr IV ONETIME ONE Stop: 12/03/18 14:29 Last Admin: 12/03/18 13:34 Dose: 25 mls/hr Iopamidol (Isovue-300 (61%)) 100 ml IVPUSH ONETIME ONE Stop: 12/02/18 15:17 Last Admin: 12/02/18 16:51 Dose: 100 ml Ketamine HCl (Ketalar) Confirm Administered Dose 500 mg .ROUTE .STK-MED ONE Stop: 12/02/18 21:28 Ketorolac Tromethamine (Toradol) 30 mg IVPUSH ONETIME ONE Stop: 12/02/18 23:10 Last Admin: 12/02/18 23:15 Dose: 30 mg Labetalol HCl (Normodyne) Confirm Administered Dose 100 mg .ROUTE .STK-MED ONE Stop: 12/02/18 23:16 Lidocaine HCl (Xylocaine 1%) Confirm Administered Dose 50 ml .ROUTE .STK-MED ONE Stop: 12/02/18 21:07 Last Admin: 12/02/18 21:10 Dose: 45 ml Midazolam HCl (Versed 1 Mg/Ml) Confirm Administered Dose 2 mg .ROUTE .STK-MED ONE Stop: 12/02/18 20:03 Neostigmine Methylsulfate (Neostigmine) Confirm Administered Dose 5 mg .ROUTE .STK-MED ONE Stop: 12/02/18 21:54 Ondansetron HCl (Zofran) 4 mg IVPUSH ONETIME ONE Stop: 12/02/18 15:08 Last Admin: 12/02/18 15:18 Dose: 4 mg Ondansetron HCl (Zofran) Confirm Administered Dose 4 mg .ROUTE .STK-MED ONE Stop: 12/02/18 20:03 Ondansetron HCl (Zofran) 4 mg IVPUSH ONETIME PRN PRN Reason: Nausea/Vomiting Propofol (Diprivan 20 Ml) Confirm Administered Dose 200 mg .ROUTE .STK-MED ONE Stop: 12/02/18 20:03 Rocuronium Rush (Zemuron) Confirm Administered Dose 50 mg .ROUTE .STK-MED ONE Stop: 12/02/18 20:03 Rocuronium Rush (Zemuron) Confirm Administered Dose 50 mg .ROUTE .STK-MED ONE Stop: 12/02/18 23:09 Rosuvastatin Calcium (Crestor) 20 mg PO ONETIME ONE Stop: 12/03/18 10:16 Last Admin: 12/03/18 10:24 Dose: 20 mg Sodium Chloride (Saline Flush) 10 ml FLUSH ONETIME ONE Stop: 12/02/18 15:17 Last Admin: 12/02/18 17:17 Dose: Not Given Succinylcholine Chloride (Succinylcholine In Ns Pf) Confirm Administered Dose 100 mg .ROUTE .STK-MED ONE Stop: 12/02/18 20:03 Thiamine HCl (Vitamin B-1) 100 mg PO DAILY [facility] Consult PN Assessment/Plan Procedures: Procedures X-RAY EXAM OF SKULL (06/29/17) My Orders Last 24 Hours: My Active Orders 12/02/18 19:45 EKG Documentation Completion [RC] STAT 12/02/18 20:29 CIWAA Assessment [RC] Q4HR 12/02/18 20:30 hydrALAZINE [Apresoline] 10 mg IVPUSH Q4H PRN 12/03/18 00:43 HYDROmorphone [Dilaudid] 0.5 mg IVPUSH Q2H PRN Plan: Patient was seen, examined, and evaluated personally and I agree with the above findings, assessment, and plan.
--- NOTE | 2018-12-03 09:39 | OR ---
DATE OF OPERATION: 12/02/2018 SURGEON: Lisette De Leon MD PREOPERATIVE DIAGNOSIS: Small bowel obstruction. POSTOPERATIVE DIAGNOSIS: Ischemic small bowel. OPERATION PERFORMED: Diagnostic laparoscopy, exploratory laparotomy, small- bowel resection, abdominal washout. ANESTHESIA: General endotracheal. ESTIMATED BLOOD LOSS: 20 mL. FLUIDS RETURNED: 200. URINE OUTPUT: 225. NG TUBE OUTPUT: 700. FINDINGS: Ischemic segment of small bowel resected. COMPLICATIONS: None. INDICATION AND CONSENT: The patient is a 58-year-old male, who had acute onset of abdominal pain this afternoon. The patient had no prior abdominal problems, presented to the emergency department. Workup revealed white count of 12. CT scan showed small bowel obstruction due to strictures. There was a segment of severely inflamed small bowel. There was some free fluid in the pelvis as well. Given these findings, I talked to the patient and recommended emergent laparotomy. I discussed the risks, benefits, and alternatives to this procedure. Risks discussed include, but not limited to, injury to intraabdominal structures, bleeding, infection, wound complications, need for additional procedures, and even a small chance of . The patient understood and agreed to proceed with the procedure. Informed consent was obtained. DESCRIPTION OF PROCEDURE: The patient was taken to the operating room, placed on the operating table in supine position. Following induction of general endotracheal anesthesia, a Mckeon catheter was placed. The SCDs were placed in bilateral lower extremities. The patient was appropriately padded. The abdominal hair was clipped and the abdomen was prepped and draped in the usual sterile fashion. Invanz was administered for preop antibiotic. Then, time-out was performed. Then, we began with an infraumbilical incision, which was carried down to the fascia. The fascia was elevated with a Bry clamp and then a Veress needle was introduced. The abdomen was insufflated to 15 mmHg. Then, a 5 mm trocar was placed into the abdomen under direct visualization with a 5/30 scope. No trauma due to Veress needle or trocar insertion. The abdomen was explored. There was a segment of severely hyperemic and ischemic segment of small bowel. Due to this finding, we immediately converted to an open procedure and an 8 cm midline laparotomy was done. The bowel was entered without any injuries and a small bowel was run from the ligament of Treitz all the way down to the cecum. There was about 40 cm segment of distal jejunum that was ischemic and hyperemic, but not frankly necrotic. this was well demarcated. It was unclear why this piece of bowel was ischemic. The mesentery was palpated. There was palpable strong pulses. There were no other areas of hyperemia. The mesentery was hemorrhagic about half way from bowel and there was a very clear demarcation as to where the ischemia began and ended. Therefore, decision was made to proceed with a small bowel resection of this segment. Resection was performed with a 55 mm blue load using DOROTHEA stapler, and then a [id number] anastomosis was performed using a 55 mm blue DOROTHEA stapler and common enterotomy was closed with a 60 mm blue DOROTHEA stapler. Then, the staple line was imbricated with 3-0 silk stitches. The mesenteric defect was closed with 2-0 Vicryl stitches in a running fashion. The anastomosis was inspected and found to be widely patent, and this was placed back into the abdomen. The abdomen was then irrigated with 3 L of warm normal saline and the irrigant suctioned. At this point, we proceeded with abdominal wall closure. The fascia was closed with #1 looped PDS stitch in a running fashion and skin was reapproximated with nile and a sterile dressing was placed. This marked the end of the procedure. At the end of the procedure, all instruments, sharps, and sponges were counted and found to be correct x2. The patient was awoken from general anesthesia, extubated, and taken to the PACU in stable condition. The plan is for the patient to be admitted for monitoring and conducting further studies to determine the source of his bowel ischemia. ELYSIA /[id number] RAMSEY
[2018-12-03] MEDS ORDERED: Rosuvastatin 10 MG Tab PO ONE (10:15)
[2018-12-03] MEDS ORDERED: amLODIPine 5 MG Tab PO ONE (10:15)
[2018-12-03] MEDS: Docusate Sodium 100 MG Cap PO PRN (10:24)
[2018-12-03] MEDS: Thiamine 100 MG Tab PO SCH (10:24)
[2018-12-03] MEDS: Folic Acid 1 MG Tab PO SCH (10:25)
[2018-12-03] MEDS: Nicotine 21 MG/24 Hr Patch TRDERM SCH (10:27)
[2018-12-03] MEDS ORDERED: Magnesium Sulfate/Water 2 GM in Premix Bag 1 BAG IV ONE (12:30)
[2018-12-03] MEDS: Aspirin 81 MG Tab.Chew PO SCH (21:09)
[2018-12-04] MEDS: Acetaminophen/HYDROcodone 325-5 MG Tab PO PRN ×5 (00:10→20:42)
[2018-12-04] MEDS: Lactated Ringers 1,000 ML IV SCH ×2 (00:11→08:57)
[2018-12-04] MEDS: Heparin Sodium 5,000 Units/ML Vial SUBCUT SCH ×3 (00:15→17:39)
[2018-12-04] MEDS: Docusate Sodium 100 MG Cap PO PRN (08:58)
[2018-12-04] MEDS: Folic Acid 1 MG Tab PO SCH (08:59)
[2018-12-04] MEDS: Rosuvastatin 10 MG Tab PO SCH (08:59)
[2018-12-04] MEDS: Thiamine 100 MG Tab PO SCH (09:00)
[2018-12-04] MEDS ORDERED: Spironolactone 25 MG Tab PO SCH (09:00)
[2018-12-04] MEDS: amLODIPine 5 MG Tab PO SCH (09:01)
[2018-12-04] MEDS: Nicotine 21 MG/24 Hr Patch TRDERM SCH (09:02)
--- NOTE | 2018-12-04 09:04 | PCM.SURGPN ---
- General Info Date of Service: 12/04/18 POD#: 2 Admission Diagnosis/Problem: Ischemia (bowel) Functional Status: Reports: Pain Controlled, Incentive Spirometry Pain Score: 3 - Review of Systems General: Reports: No Symptoms HEENT: Reports: No Symptoms Pulmonary: Reports: No Symptoms Cardiovascular: Reports: No Symptoms Gastrointestinal: Reports: Flatus (none) Genitourinary: Reports: No Symptoms Musculoskeletal: Reports: No Symptoms Skin: Reports: No Symptoms - Patient Data Vitals - Most Recent: Last Vital Signs Temp 97.9 F 12/04/18 05:19 Pulse 87 12/04/18 05:19 Resp 16 12/04/18 05:19 BP 175/79 H 12/04/18 05:19 Pulse Ox 92 L 12/04/18 05:19 Weight - Most Recent: 74.661 kg I&O - Last 24 Hours: Intake & Output 12/03/18 12/04/18 12/04/18 22:59 06:59 14:59 Intake Total 1010 400 Output Total 100 1800 Balance 910 -1400 Lab Results Last 24 Hrs: Laboratory Results - last 24 hr 12/03/18 12/03/18 12/04/18 Range/Units 09:05 09:05 05:30 WBC 8.15 (4.23-9.07) K/mm3 RBC 3.21 L (4.63-6.08) M/mm3 Hgb 10.8 L D (13.7-17.5) gm/dl Hct 32.8 L (40.1-51.0) % MCV 102.2 H D (79.0-92.2) fl MCH 33.6 H (25.7-32.2) pg MCHC 32.9 (32.2-35.5) g/dl RDW Std Deviation 48.1 H (35.1-43.9) fL Plt Count 224 (163-337) K/mm3 MPV 8.7 L (9.4-12.3) fl Neut % (Auto) 86.4 H (34.0-67.9) % Lymph % (Auto) 7.5 L (21.8-53.1) % Rankin % (Auto) 5.8 (5.3-12.2) % Eos % (Auto) 0.1 L (0.8-7.0) Baso % (Auto) 0.1 (0.1-1.2) % Neut # (Auto) 7.04 H (1.78-5.38) K/mm3 Lymph # (Auto) 0.61 L (1.32-3.57) K/mm3 Rankin # (Auto) 0.47 (0.30-0.82) K/mm3 Eos # (Auto) 0.01 L (0.04-0.54) K/mm3 Baso # (Auto) 0.01 (0.01-0.08) K/mm3 Manual Slide Review Sodium 138 130 L (136-145) mEq/L Potassium 4.1 3.8 (3.5-5.1) mEq/L Chloride 106 97 L (98-107) mEq/L Carbon Dioxide 26 25 (21-32) mEq/L Anion Gap 10.1 11.8 (5-15) BUN 11 5 L (7-18) mg/dL Creatinine 0.7 0.7 (0.7-1.3) mg/dL Est Cr Clr Drug Dosing 124.71 119.99 mL/min Estimated GFR (MDRD) > 60 > 60 (>60) mL/min BUN/Creatinine Ratio 15.7 7.1 L (14-18) Glucose 112 H 109 H (74-106) mg/dL Calcium 7.2 L D 8.3 L (8.5-10.1) mg/dL Magnesium 1.7 L 2.0 (1.8-2.4) mg/dl 12/04/18 Range/Units 05:30 WBC 9.24 H (4.23-9.07) K/mm3 RBC 3.73 L (4.63-6.08) M/mm3 Hgb 12.5 L D (13.7-17.5) gm/dl Hct 37.9 L (40.1-51.0) % MCV 101.6 H (79.0-92.2) fl MCH 33.5 H (25.7-32.2) pg MCHC 33.0 (32.2-35.5) g/dl RDW Std Deviation 47.4 H (35.1-43.9) fL Plt Count 253 (163-337) K/mm3 MPV 9.7 (9.4-12.3) fl Neut % (Auto) 83.8 H (34.0-67.9) % Lymph % (Auto) 7.6 L (21.8-53.1) % Rankin % (Auto) 8.1 (5.3-12.2) % Eos % (Auto) 0.1 L (0.8-7.0) Baso % (Auto) 0.2 (0.1-1.2) % Neut # (Auto) 7.74 H (1.78-5.38) K/mm3 Lymph # (Auto) 0.70 L (1.32-3.57) K/mm3 Rankin # (Auto) 0.75 (0.30-0.82) K/mm3 Eos # (Auto) 0.01 L (0.04-0.54) K/mm3 Baso # (Auto) 0.02 (0.01-0.08) K/mm3 Manual Slide Review Abnormal smear Sodium (136-145) mEq/L Potassium (3.5-5.1) mEq/L Chloride (98-107) mEq/L Carbon Dioxide (21-32) mEq/L Anion Gap (5-15) BUN (7-18) mg/dL Creatinine (0.7-1.3) mg/dL Est Cr Clr Drug Dosing mL/min Estimated GFR (MDRD) (>60) mL/min BUN/Creatinine Ratio (14-18) Glucose (74-106) mg/dL Calcium (8.5-10.1) mg/dL Magnesium (1.8-2.4) mg/dl Med Orders - Current: Current Medications Hydrocodone Bitart/Acetaminophen (Ward 325-5 Mg) 1 tab PO Q4H PRN PRN Reason: Pain (moderate 4-6) Last Admin: 12/04/18 05:16 Dose: 1 tab Amlodipine Besylate (Norvasc) 5 mg PO DAILY [facility] Aspirin (Aspirin) 81 mg PO BEDTIME [facility] Last Admin: 12/03/18 21:09 Dose: 81 mg Docusate Sodium (Colace) 100 mg PO BID PRN PRN Reason: Constipation Last Admin: 12/03/18 10:24 Dose: 100 mg Folic Acid (Folic Acid) 1 mg PO DAILY [facility] Last Admin: 12/03/18 10:25 Dose: 1 mg Heparin Sodium (Porcine) (Heparin Sodium) 5,000 units SUBCUT Q8H [facility] Last Admin: 12/04/18 00:15 Dose: 5,000 units Hydralazine HCl (Apresoline) 10 mg IVPUSH Q4H PRN PRN Reason: Hypertension Hydromorphone HCl (Dilaudid) 0.5 mg IVPUSH Q2H PRN PRN Reason: Pain Last Admin: 12/03/18 21:09 Dose: 0.5 mg Lactated Ringer's (Ringers, Lactated) 1,000 mls @ 75 mls/hr IV ASDIRECTED [facility] Last Admin: 12/04/18 08:57 Dose: 125 mls/hr Lorazepam (Ativan) 0 mg IVPUSH ASDIRECTED PRN; Protocol PRN Reason: withdrawl Miscellaneous Information (Remove Patch) 1 ea TRDERM DAILY [facility] Nicotine (Habitrol) 21 mg TRDERM DAILY [facility] Last Admin: 12/03/18 10:27 Dose: 21 mg Ondansetron HCl (Zofran) 4 mg IVPUSH Q8H PRN PRN Reason: Nausea Rosuvastatin Calcium (Crestor) 20 mg PO DAILY [facility] Sodium Chloride (Saline Flush) 10 ml FLUSH ASDIRECTED PRN PRN Reason: Keep Vein Open Last Admin: 12/02/18 16:51 Dose: 10 ml Spironolactone (Aldactone) 25 mg PO DAILY [facility] Thiamine HCl (Vitamin B-1) 100 mg PO DAILY [facility] Last Admin: 12/03/18 10:24 Dose: 100 mg Discontinued Medications Albuterol (Proventil Neb Soln) 2.5 mg NEB ONETIME ONE Stop: 12/02/18 20:22 Last Admin: 12/02/18 20:27 Dose: 2.5 mg Amlodipine Besylate (Norvasc) 5 mg PO ONETIME ONE Stop: 12/03/18 10:16 Last Admin: 12/03/18 10:25 Dose: 5 mg Diatrizoate Meglum/Diatrizoate Sod (Gastrografin 37%) 90 ml PO ONETIME ONE Stop: 12/02/18 15:17 Last Admin: 12/02/18 16:51 Dose: 90 ml Fentanyl (Sublimaze) Confirm Administered Dose 250 mcg .ROUTE .STK-MED ONE Stop: 12/02/18 20:04 Fentanyl (Sublimaze) 50 mcg IVPUSH Q5M PRN PRN Reason: Pain Fentanyl (Sublimaze) Confirm Administered Dose 250 mcg .ROUTE .STK-MED ONE Stop: 12/02/18 21:28 Folic Acid (Folic Acid) 1 mg PO DAILY [facility] Glycopyrrolate () Confirm Administered Dose 1 mg .ROUTE .STK-MED ONE Stop: 12/02/18 21:54 Hydromorphone HCl (Dilaudid) 0.5 mg IVPUSH ONETIME ONE Stop: 12/02/18 15:08 Last Admin: 12/02/18 15:18 Dose: 0.5 mg Hydromorphone HCl (Dilaudid) 0.5 mg IVPUSH ONETIME ONE Stop: 12/02/18 17:25 Last Admin: 12/02/18 17:35 Dose: 0.5 mg Hydromorphone HCl (Dilaudid) Confirm Administered Dose 1 mg .ROUTE .STK-MED ONE Stop: 12/02/18 21:22 Hydromorphone HCl (Dilaudid) 0.5 mg IVPUSH Q10M PRN PRN Reason: Pain (severe 7-10) Sodium Chloride (Normal Saline) 1,000 mls @ 150 mls/hr IV ASDIRECTED [facility] Stop: 12/03/18 06:00 Last Admin: 12/03/18 01:51 Dose: 150 mls/hr Lidocaine HCl (Xylocaine-Mpf 1%) Confirm Administered Dose 4 mls @ as directed .ROUTE .STK-MED ONE Stop: 12/02/18 20:03 Ertapenem 1 gm/ Sodium (Chloride) 100 mls @ 100 mls/hr IV ONETIME ONE Stop: 12/02/18 21:07 Last Admin: 12/02/18 20:42 Dose: 100 mls/hr Lactated Ringer's (Ringers, Lactated) Confirm Administered Dose 1,000 mls @ as directed .ROUTE .STK-MED ONE Stop: 12/02/18 21:17 Lactated Ringer's (Ringers, Lactated) Confirm Administered Dose 1,000 mls @ as directed .ROUTE .STK-MED ONE Stop: 12/02/18 21:17 Lactated Ringer's (Ringers, Lactated) Confirm Administered Dose 1,000 mls @ as directed .ROUTE .STK-MED ONE Stop: 12/02/18 22:25 Magnesium Sulfate 2 gm/ Premix 50 mls @ 25 mls/hr IV ONETIME ONE Stop: 12/03/18 14:29 Last Admin: 12/03/18 13:34 Dose: 25 mls/hr Iopamidol (Isovue-300 (61%)) 100 ml IVPUSH ONETIME ONE Stop: 12/02/18 15:17 Last Admin: 12/02/18 16:51 Dose: 100 ml Ketamine HCl (Ketalar) Confirm Administered Dose 500 mg .ROUTE .STK-MED ONE Stop: 12/02/18 21:28 Ketorolac Tromethamine (Toradol) 30 mg IVPUSH ONETIME ONE Stop: 12/02/18 23:10 Last Admin: 12/02/18 23:15 Dose: 30 mg Labetalol HCl (Normodyne) Confirm Administered Dose 100 mg .ROUTE .STK-MED ONE Stop: 12/02/18 23:16 Lidocaine HCl (Xylocaine 1%) Confirm Administered Dose 50 ml .ROUTE .STK-MED ONE Stop: 12/02/18 21:07 Last Admin: 12/02/18 21:10 Dose: 45 ml Midazolam HCl (Versed 1 Mg/Ml) Confirm Administered Dose 2 mg .ROUTE .STK-MED ONE Stop: 12/02/18 20:03 Neostigmine Methylsulfate (Neostigmine) Confirm Administered Dose 5 mg .ROUTE .STK-MED ONE Stop: 12/02/18 21:54 Ondansetron HCl (Zofran) 4 mg IVPUSH ONETIME ONE Stop: 12/02/18 15:08 Last Admin: 12/02/18 15:18 Dose: 4 mg Ondansetron HCl (Zofran) Confirm Administered Dose 4 mg .ROUTE .STK-MED ONE Stop: 12/02/18 20:03 Ondansetron HCl (Zofran) 4 mg IVPUSH ONETIME PRN PRN Reason: Nausea/Vomiting Propofol (Diprivan 20 Ml) Confirm Administered Dose 200 mg .ROUTE .STK-MED ONE Stop: 12/02/18 20:03 Rocuronium Sherrill (Zemuron) Confirm Administered Dose 50 mg .ROUTE .STK-MED ONE Stop: 12/02/18 20:03 Rocuronium Sherrill (Zemuron) Confirm Administered Dose 50 mg .ROUTE .STK-MED ONE Stop: 12/02/18 23:09 Rosuvastatin Calcium (Crestor) 20 mg PO ONETIME ONE Stop: 12/03/18 10:16 Last Admin: 12/03/18 10:24 Dose: 20 mg Sodium Chloride (Saline Flush) 10 ml FLUSH ONETIME ONE Stop: 12/02/18 15:17 Last Admin: 12/02/18 17:17 Dose: Not Given Succinylcholine Chloride (Succinylcholine In Ns Pf) Confirm Administered Dose 100 mg .ROUTE .STK-MED ONE Stop: 12/02/18 20:03 Thiamine HCl (Vitamin B-1) 100 mg PO DAILY [facility] - Exam Wound/Incisions: Healing Well General: Alert, Oriented, Cooperative, No Acute Distress GI/Abdominal Exam: Soft, Distended, Tender (appropriately) Skin: Warm, Dry, Intact - Problem List Review Problem List Initiated/Reviewed/Updated: No - My Orders Last 24 Hours: Active Orders 24 hr Category Date Time Status Ambulate [RC] .TID Care 12/03/18 08:36 Active Antiembolic Devices [RC] BID Care 12/03/18 08:22 Active Communication Order [RC] ASDIRECTED Care 12/03/18 08:19 Active Intake and Output [RC] 04,16 Care 12/03/18 08:36 Active Oxygen Therapy [RC] PRN Care 12/03/18 08:35 Active RT Incentive Spirometry [RC] Q1HWA Care 12/03/18 08:35 Active Up ad Margaret [RC] ASDIRECTED Care 12/03/18 08:35 Active Up to Chair [RC] .TID Care 12/03/18 08:36 Active VTE/DVT Education [RC] BID Care 12/03/18 08:38 Active Vital Signs [RC] Q4HR Care 12/03/18 08:35 Active Clear Liquid Diet [DIET] Diet 12/03/18 Lunch Active Ang Abdomen [CT] Routine Exams 12/04/18 08:55 Ordered Ang Chest [CT] Routine Exams 12/04/18 08:55 Ordered CTA Pelvis W & W/O Contrast [Ang Pelvis] [CT] Routine Exams 12/04/18 08:55 Ordered BASIC METABOLIC PANEL,BMP [CHEM] AM Lab 12/05/18 05:11 Ordered BASIC METABOLIC PANEL,BMP [CHEM] AM Lab 12/06/18 05:11 Ordered BASIC METABOLIC PANEL,BMP [CHEM] AM Lab 12/07/18 05:11 Ordered CBC WITH AUTO DIFF [HEME] AM Lab 12/05/18 05:11 Ordered CBC WITH AUTO DIFF [HEME] AM Lab 12/06/18 05:11 Ordered CBC WITH AUTO DIFF [HEME] AM Lab 12/07/18 05:11 Ordered MAGNESIUM [CHEM] AM Lab 12/05/18 05:11 Ordered MAGNESIUM [CHEM] AM Lab 12/06/18 05:11 Ordered MAGNESIUM [CHEM] AM Lab 12/07/18 05:11 Ordered Acetaminophen/HYDROcodone [Ward 325-5 MG] Med 12/03/18 08:35 Active 1 tab PO Q4H PRN Aspirin Med 12/03/18 21:00 Active 81 mg PO BEDTIME Docusate Sodium [Colace] Med 12/03/18 08:35 Active 100 mg PO BID PRN Folic Acid Med 12/03/18 09:00 Active 1 mg PO DAILY Heparin Sodium Med 12/03/18 08:30 Active 5,000 units SUBCUT Q8H LORazepam [Ativan] Med 12/03/18 08:27 Active See Protocol IVPUSH ASDIRECTED PRN Nicotine [Habitrol] Med 12/03/18 09:00 Active 21 mg TRDERM DAILY Remove Patch Med 12/04/18 09:00 Active 1 ea TRDERM DAILY Rosuvastatin [Crestor] Med 12/04/18 09:00 Active 20 mg PO DAILY Spironolactone [Aldactone] Med 12/04/18 09:00 Active 25 mg PO DAILY Thiamine [Vitamin B-1] Med 12/03/18 09:00 Active 100 mg PO DAILY amLODIPine [Norvasc] Med 12/04/18 09:00 Active 5 mg PO DAILY Abdominal Binder [OM.PC] Per Unit Routine Oth 12/03/18 08:36 Ordered DVT/VTE Prophylaxis Reflex [OM.PC] Routine Oth 12/03/18 08:35 Ordered SCD [Sequential Compression Device] [OM.PC] Routine Oth 12/03/18 08:22 Ordered Medication Orders Hydrocodone Bitart/Acetaminophen (Ward 325-5 Mg) 1 tab PO Q4H PRN PRN Reason: Pain (moderate 4-6) Last Admin: 12/04/18 05:16 Dose: 1 tab Admin: 12/04/18 00:10 Dose: 1 tab Amlodipine Besylate (Norvasc) 5 mg PO DAILY [facility] Aspirin (Aspirin) 81 mg PO BEDTIME [facility] Last Admin: 12/03/18 21:09 Dose: 81 mg Docusate Sodium (Colace) 100 mg PO BID PRN PRN Reason: Constipation Last Admin: 12/03/18 10:24 Dose: 100 mg Folic Acid (Folic Acid) 1 mg PO DAILY [facility] Last Admin: 12/03/18 10:25 Dose: 1 mg Heparin Sodium (Porcine) (Heparin Sodium) 5,000 units SUBCUT Q8H [facility] Last Admin: 12/04/18 00:15 Dose: 5,000 units Admin: 12/03/18 16:42 Dose: 5,000 units Admin: 12/03/18 08:39 Dose: 5,000 units Hydralazine HCl (Apresoline) 10 mg IVPUSH Q4H PRN PRN Reason: Hypertension Hydromorphone HCl (Dilaudid) 0.5 mg IVPUSH Q2H PRN PRN Reason: Pain Last Admin: 12/03/18 21:09 Dose: 0.5 mg Admin: 12/03/18 08:40 Dose: 0.5 mg Lactated Ringer's (Ringers, Lactated) 1,000 mls @ 75 mls/hr IV ASDIRECTED [facility] Last Admin: 12/04/18 08:57 Dose: 125 mls/hr Infusion: 12/04/18 08:11 Dose: 125 mls/hr Admin: 12/04/18 00:11 Dose: 125 mls/hr Infusion: 12/03/18 22:37 Dose: 125 mls/hr Admin: 12/03/18 14:37 Dose: 125 mls/hr Infusion: 12/03/18 14:13 Dose: 125 mls/hr Admin: 12/03/18 06:13 Dose: 125 mls/hr Lorazepam (Ativan) 0 mg IVPUSH ASDIRECTED PRN; Protocol PRN Reason: withdrawl Miscellaneous Information (Remove Patch) 1 ea TRDERM DAILY [facility] Nicotine (Habitrol) 21 mg TRDERM DAILY [facility] Last Admin: 12/03/18 10:27 Dose: 21 mg Ondansetron HCl (Zofran) 4 mg IVPUSH Q8H PRN PRN Reason: Nausea Rosuvastatin Calcium (Crestor) 20 mg PO DAILY [facility] Sodium Chloride (Saline Flush) 10 ml FLUSH ASDIRECTED PRN PRN Reason: Keep Vein Open Last Admin: 12/02/18 16:51 Dose: 10 ml Admin: 12/02/18 15:18 Dose: 10 ml Spironolactone (Aldactone) 25 mg PO DAILY [facility] Thiamine HCl (Vitamin B-1) 100 mg PO DAILY [facility] Last Admin: 12/03/18 10:24 Dose: 100 mg - Plan Plan (Free Text/Narrative):: POD2 s/p SBR for intestinal ischemia. abdomen still distended and patient burping, no flatus. - continue sips of clears, i told the patient not to overdo it so he does not vomit - Ambulate TID - continue incentive spirometer - Will do a CTA chest, abd, pelvis to investigate source of bowel ischemia - we started ASA yesterday, will continue this post op. - Anticipate discharge when tolerating diet and has bowel function
[2018-12-04] MEDS ORDERED: Iopamidol 755 Mg/ML 100 ML Bottle IVPUSH ONE (09:25)
[2018-12-04] MEDS: Sodium Chloride 0.9% 10 ML Syringe FLUSH PRN (09:58)
--- NOTE | 2018-12-04 10:31 | CT ---
CT chest Technique: Multiple axial sections through the chest are obtained. Intravenous contrast was utilized. Study performed in the arterial phase. Comparison: No prior chest imaging. Findings: Pulmonary arteries showed no discrete filling defects to indicate pulmonary embolism. Thoracic aorta shows atherosclerotic change without aneurysm or stenosis. No aortic dissection is seen. No pericardial fluid is seen. Trace right-sided pleural effusion is noted. Emphysematous changes are seen within both lungs. Mild areas of atelectasis is seen within both posterior lungs. Bone window settings were reviewed which show nothing acute. Impression: 1. Atherosclerotic change within the thoracic aorta without aneurysm, dissection or stenosis. 2. No findings of pulmonary embolism. 3. Minimal right sided pleural effusion and mild atelectasis within both posterior lungs. Diagnostic code #2
--- NOTE | 2018-12-04 10:34 | CT ---
CT angiogram of abdomen Technique: Multiple axial sections through the abdomen were obtained age also included the pelvis. Intravenous contrast was obtained. Study performed during the arterial phase. Comparison: Previous CT abdomen and pelvis study of 12/02/18. Findings: Diffuse atherosclerotic calcification is noted within the aorta and iliac vessels. Right common iliac artery shows stenosis by about 50%. External iliac arteries show mild areas of narrowing. There is approximately 50% stenosis within the left common femoral artery on the left side and about 40% stenosis on the right side within the common femoral artery. Aorta shows no focal stenosis. Celiac axis shows atherosclerotic change with mild areas of scattered narrowing which appear did not appear to be hemodynamically significant. Superior mesenteric artery also shows atherosclerotic change with mild areas of scattered narrowing which do not appear to be hemodynamically significant. Inferior mesenteric artery is patent. Atherosclerotic calcification is seen within the renal vessels. Mild stenosis is noted within the proximal right renal artery at the ostia itched does not appear to be hemodynamic significant. Other portions of the more distal renal arteries are patent. Small amount of fluid is seen around the liver as well as a small amount of free air. No focal abnormality is appreciated within the liver. Spleen appears within normal limits. Adrenal glands show no nodule. Pancreas is within normal limits. Kidneys show symmetric contrast enhancement without hydronephrosis or mass. Appendix is seen and is normal in size. Mildly dilated fluid-filled and air-filled small bowel loops are seen. These appear fairly similar to previous exam. Fluid is noted within the pelvis. This has slightly increased in amount from previous exam. Air noted within the bladder presumably from recent instrumentation. Please correlate. Bone window settings were reviewed which shows nothing acute. Midline surgical nile are seen. Impression: 1. Diffuse atheromatous change. Areas of stenosis as noted above. Greatest stenosis is about 50%. 2. Dilated small bowel loops fairly stable in size from previous exam which may represent residual postop ileus. 3. Slight increasing free fluid within the pelvis. Small amount of fluid is seen around the liver. Minimal free air is seen compatible with surgery. Diagnostic code #3
--- NOTE | 2018-12-04 10:34 | CT ---
CT angiogram of pelvis Technique: Multiple axial sections through the pelvis were obtained. Intravenous contrast was utilized in the arterial phase. Comparison: Previous CT abdomen and pelvis study of 12/02/18. Findings: Angiogram study of the pelvis was described on CT abdominal angiogram exam. Diffuse atherosclerotic change is seen within the iliac vessels. Free fluid is seen within the pelvis which is increased in amount from previous exam. Air is noted within the bladder presumably due to recent instrumentation. Impression: 1. Angiogram study of the pelvis was described on CT abdominal angiogram report. 2. Slight increased fluid fluid within the pelvis. 3. Air within the bladder presumably from recent instrumentation. Diagnostic code #3
[2018-12-04] MEDS: Lisinopril 10 MG Tab PO SCH (12:36)
--- NOTE | 2018-12-04 15:42 | PCM.CONSN ---
- General Info Date of Service: 12/04/18 Admission Dx/Problem (Free Text): Admission Diagnosis/Problem Admission Diagnosis/Problem Small bowel obstruction Subjective Update: Patient has not had a flat as yet. He is walking in the halls. Generally feeling better. He denies any withdrawal type symptoms including anxiety or tremors. - Review of Systems General: Denies: Fever HEENT: Reports: No Symptoms Pulmonary: Reports: No Symptoms Cardiovascular: Reports: No Symptoms Gastrointestinal: Denies: [place] - Patient Data Vitals - Most Recent: Last Vital Signs Temp 98.2 F 12/04/18 11:07 Pulse 86 12/04/18 11:07 Resp 16 12/04/18 11:07 BP 159/90 H 12/04/18 12:36 Pulse Ox 93 L 12/04/18 11:07 Weight - Most Recent: 164 lb 9.6 oz I&O - Last 24 Hours: Intake & Output 12/04/18 12/04/18 12/04/18 06:59 14:59 22:59 Intake Total 400 0 Output Total 1800 Balance -1400 0 Lab Results Last 24 Hours: Laboratory Results - last 24 hr 12/04/18 12/04/18 Range/Units 05:30 05:30 WBC 9.24 H (4.23-9.07) K/mm3 RBC 3.73 L (4.63-6.08) M/mm3 Hgb 12.5 L D (13.7-17.5) gm/dl Hct 37.9 L (40.1-51.0) % MCV 101.6 H (79.0-92.2) fl MCH 33.5 H (25.7-32.2) pg MCHC 33.0 (32.2-35.5) g/dl RDW Std Deviation 47.4 H (35.1-43.9) fL Plt Count 253 (163-337) K/mm3 MPV 9.7 (9.4-12.3) fl Neut % (Auto) 83.8 H (34.0-67.9) % Lymph % (Auto) 7.6 L (21.8-53.1) % [place] % (Auto) 8.1 (5.3-12.2) % Eos % (Auto) 0.1 L (0.8-7.0) Baso % (Auto) 0.2 (0.1-1.2) % Neut # (Auto) 7.74 H (1.78-5.38) K/mm3 Lymph # (Auto) 0.70 L (1.32-3.57) K/mm3 [place] # (Auto) 0.75 (0.30-0.82) K/mm3 Eos # (Auto) 0.01 L (0.04-0.54) K/mm3 Baso # (Auto) 0.02 (0.01-0.08) K/mm3 Manual Slide Review Abnormal smear Sodium 130 L (136-145) mEq/L Potassium 3.8 (3.5-5.1) mEq/L Chloride 97 L (98-107) mEq/L Carbon Dioxide 25 (21-32) mEq/L Anion Gap 11.8 (5-15) BUN 5 L (7-18) mg/dL Creatinine 0.7 (0.7-1.3) mg/dL Est Cr Clr Drug Dosing 119.99 mL/min Estimated GFR (MDRD) > 60 (>60) mL/min BUN/Creatinine Ratio 7.1 L (14-18) Glucose 109 H (74-106) mg/dL Calcium 8.3 L (8.5-10.1) mg/dL Magnesium 2.0 (1.8-2.4) mg/dl Med Orders - Current: Current Medications Hydrocodone Bitart/Acetaminophen ([place] 325-5 Mg) 1 tab PO Q4H PRN PRN Reason: Pain (moderate 4-6) Last Admin: 12/04/18 14:31 Dose: 1 tab Amlodipine Besylate (Norvasc) 5 mg PO DAILY [facility] Last Admin: 12/04/18 09:01 Dose: 5 mg Aspirin (Aspirin) 81 mg PO BEDTIME [facility] Last Admin: 12/03/18 21:09 Dose: 81 mg Docusate Sodium (Colace) 100 mg PO BID PRN PRN Reason: Constipation Last Admin: 12/04/18 08:58 Dose: 100 mg Folic Acid (Folic Acid) 1 mg PO DAILY [facility] Last Admin: 12/04/18 08:59 Dose: 1 mg Heparin Sodium (Porcine) (Heparin Sodium) 5,000 units SUBCUT Q8H [facility] Last Admin: 12/04/18 09:01 Dose: 5,000 units Hydralazine HCl (Apresoline) 10 mg IVPUSH Q4H PRN PRN Reason: Hypertension Hydromorphone HCl (Dilaudid) 0.5 mg IVPUSH Q2H PRN PRN Reason: Pain Last Admin: 12/03/18 21:09 Dose: 0.5 mg Lactated Ringer's (Ringers, Lactated) 1,000 mls @ 75 mls/hr IV ASDIRECTED [facility] Last Admin: 12/04/18 08:57 Dose: 125 mls/hr Lisinopril (Prinivil) 10 mg PO DAILY [facility] Last Admin: 12/04/18 12:36 Dose: 10 mg Lorazepam (Ativan) 0 mg IVPUSH ASDIRECTED PRN; Protocol PRN Reason: withdrawl Miscellaneous Information (Remove Patch) 1 ea TRDERM DAILY [facility] Last Admin: 12/04/18 09:02 Dose: 1 ea Nicotine (Habitrol) 21 mg TRDERM DAILY [facility] Last Admin: 12/04/18 09:02 Dose: 21 mg Ondansetron HCl (Zofran) 4 mg IVPUSH Q8H PRN PRN Reason: Nausea Rosuvastatin Calcium (Crestor) 20 mg PO DAILY [facility] Last Admin: 12/04/18 08:59 Dose: 20 mg Sodium Chloride (Saline Flush) 10 ml FLUSH ASDIRECTED PRN PRN Reason: Keep Vein Open Last Admin: 12/04/18 09:58 Dose: 10 ml Thiamine HCl (Vitamin B-1) 100 mg PO DAILY [facility] Last Admin: 12/04/18 09:00 Dose: 100 mg Discontinued Medications Albuterol (Proventil Neb Soln) 2.5 mg NEB ONETIME ONE Stop: 12/02/18 20:22 Last Admin: 12/02/18 20:27 Dose: 2.5 mg Amlodipine Besylate (Norvasc) 5 mg PO ONETIME ONE Stop: 12/03/18 10:16 Last Admin: 12/03/18 10:25 Dose: 5 mg Diatrizoate Meglum/Diatrizoate Sod (Gastrografin 37%) 90 ml PO ONETIME ONE Stop: 12/02/18 15:17 Last Admin: 12/02/18 16:51 Dose: 90 ml Fentanyl (Sublimaze) Confirm Administered Dose 250 mcg .ROUTE .STK-MED ONE Stop: 12/02/18 20:04 Fentanyl (Sublimaze) 50 mcg IVPUSH Q5M PRN PRN Reason: Pain Fentanyl (Sublimaze) Confirm Administered Dose 250 mcg .ROUTE .STK-MED ONE Stop: 12/02/18 21:28 Folic Acid (Folic Acid) 1 mg PO DAILY [facility] Glycopyrrolate () Confirm Administered Dose 1 mg .ROUTE .STK-MED ONE Stop: 12/02/18 21:54 Hydromorphone HCl (Dilaudid) 0.5 mg IVPUSH ONETIME ONE Stop: 12/02/18 15:08 Last Admin: 12/02/18 15:18 Dose: 0.5 mg Hydromorphone HCl (Dilaudid) 0.5 mg IVPUSH ONETIME ONE Stop: 12/02/18 17:25 Last Admin: 12/02/18 17:35 Dose: 0.5 mg Hydromorphone HCl (Dilaudid) Confirm Administered Dose 1 mg .ROUTE .STK-MED ONE Stop: 12/02/18 21:22 Hydromorphone HCl (Dilaudid) 0.5 mg IVPUSH Q10M PRN PRN Reason: Pain (severe 7-10) Sodium Chloride (Normal Saline) 1,000 mls @ 150 mls/hr IV ASDIRECTED [facility] Stop: 12/03/18 06:00 Last Admin: 12/03/18 01:51 Dose: 150 mls/hr Lidocaine HCl (Xylocaine-Mpf 1%) Confirm Administered Dose 4 mls @ as directed .ROUTE .STK-MED ONE Stop: 12/02/18 20:03 Ertapenem 1 gm/ Sodium (Chloride) 100 mls @ 100 mls/hr IV ONETIME ONE Stop: 12/02/18 21:07 Last Admin: 12/02/18 20:42 Dose: 100 mls/hr Lactated Ringer's (Ringers, Lactated) Confirm Administered Dose 1,000 mls @ as directed .ROUTE .STK-MED ONE Stop: 12/02/18 21:17 Lactated Ringer's (Ringers, Lactated) Confirm Administered Dose 1,000 mls @ as directed .ROUTE .STK-MED ONE Stop: 12/02/18 21:17 Lactated Ringer's (Ringers, Lactated) Confirm Administered Dose 1,000 mls @ as directed .ROUTE .STK-MED ONE Stop: 12/02/18 22:25 Magnesium Sulfate 2 gm/ Premix 50 mls @ 25 mls/hr IV ONETIME ONE Stop: 12/03/18 14:29 Last Admin: 12/03/18 13:34 Dose: 25 mls/hr Iopamidol (Isovue-300 (61%)) 100 ml IVPUSH ONETIME ONE Stop: 12/02/18 15:17 Last Admin: 12/02/18 16:51 Dose: 100 ml Iopamidol (Isovue-370 (76%)) 100 ml IVPUSH ONETIME ONE Stop: 12/04/18 09:26 Last Admin: 12/04/18 09:58 Dose: 100 ml Ketamine HCl (Ketalar) Confirm Administered Dose 500 mg .ROUTE .STK-MED ONE Stop: 12/02/18 21:28 Ketorolac Tromethamine (Toradol) 30 mg IVPUSH ONETIME ONE Stop: 12/02/18 23:10 Last Admin: 12/02/18 23:15 Dose: 30 mg Labetalol HCl (Normodyne) Confirm Administered Dose 100 mg .ROUTE .STK-MED ONE Stop: 12/02/18 23:16 Lidocaine HCl (Xylocaine 1%) Confirm Administered Dose 50 ml .ROUTE .STK-MED ONE Stop: 12/02/18 21:07 Last Admin: 12/02/18 21:10 Dose: 45 ml Midazolam HCl (Versed 1 Mg/Ml) Confirm Administered Dose 2 mg .ROUTE .STK-MED ONE Stop: 12/02/18 20:03 Neostigmine Methylsulfate (Neostigmine) Confirm Administered Dose 5 mg .ROUTE .STK-MED ONE Stop: 12/02/18 21:54 Ondansetron HCl (Zofran) 4 mg IVPUSH ONETIME ONE Stop: 12/02/18 15:08 Last Admin: 12/02/18 15:18 Dose: 4 mg Ondansetron HCl (Zofran) Confirm Administered Dose 4 mg .ROUTE .STK-MED ONE Stop: 12/02/18 20:03 Ondansetron HCl (Zofran) 4 mg IVPUSH ONETIME PRN PRN Reason: Nausea/Vomiting Propofol (Diprivan 20 Ml) Confirm Administered Dose 200 mg .ROUTE .STK-MED ONE Stop: 12/02/18 20:03 Rocuronium [place] (Zemuron) Confirm Administered Dose 50 mg .ROUTE .STK-MED ONE Stop: 12/02/18 20:03 Rocuronium [place] (Zemuron) Confirm Administered Dose 50 mg .ROUTE .STK-MED ONE Stop: 12/02/18 23:09 Rosuvastatin Calcium (Crestor) 20 mg PO ONETIME ONE Stop: 12/03/18 10:16 Last Admin: 12/03/18 10:24 Dose: 20 mg Sodium Chloride (Saline Flush) 10 ml FLUSH ONETIME ONE Stop: 12/02/18 15:17 Last Admin: 12/02/18 17:17 Dose: Not Given Spironolactone (Aldactone) 25 mg PO DAILY [facility] Last Admin: 12/04/18 09:01 Dose: 25 mg Succinylcholine Chloride (Succinylcholine In Ns Pf) Confirm Administered Dose 100 mg .ROUTE .STK-MED ONE Stop: 12/02/18 20:03 Thiamine HCl (Vitamin B-1) 100 mg PO DAILY [facility] - Exam General: Alert, Oriented HEENT: Pupils Equal, Pupils Reactive, EOMI, Mucous Membr. Moist/[place] Neck: Supple Lungs: Clear to Auscultation, Normal Respiratory Effort Cardiovascular: Regular Rate, Regular Rhythm GI/Abdominal Exam: Normal Bowel Sounds, Soft Consult PN Assessment/Plan POD#: 2 Procedures: Procedures X-RAY EXAM OF SKULL (06/29/17) Problem List Initiated/Reviewed/Updated: Yes My Orders Last 24 Hours: My Active Orders 12/04/18 09:15 Lisinopril [Prinivil] 10 mg PO DAILY Plan: Assessment * Postop day 2 for small bowel resection secondary to intestinal ischemia * CTA of the chest impression: 1. Atherosclerotic change within the thoracic aorta without aneurysm, dissection, or stenosis. 2. No findings of pulmonary embolism. 3. Minimal right-sided pleural effusion and mild atelectasis within both posterior lungs. * CTA of the abdomen and pelvis, impression: 1. Diffuse atheromatous change. Areas of stenosis as noted above. Greatest stenosis is about 50%. 2. Dilated small bowel loops fairly stable in size from previous exam which may represent residual post op ileus. 3. Slightly increased free fluid within the pelvis. Small amount of fluid is seen around the liver. Minimal free air is seen compatible with surgery. * Peripheral vascular disease * Hyponatremia - sodium 130 * Hypertension * Hyperlipidemia * Tobaccoism * ETOH use : 6-12 beers daily * Hypomagnesemia - magnesium 1.8 * Diet being advanced to clear liquids Recommendation * Hold spironolactone. Already given today. * Restart lisinopril 10 mg daily. * CIWA protocol. Patient will be at increased risk for alcohol withdrawal after 24-48 hours. * Counseling on tobacco cessation. 5 minutes spent in counseling. * CT results consistent with diffuse atherosclerosis. Recommend high-dose statin medication, blood pressure control, smoking cessation, aspirin, Mediterranean diet, and exercise. Discussed this with the patient today. * Hydralazine 10 mg every 4 hours when necessary systolic blood pressure greater than 200 or diastolic blood pressure greater than 110. * Encourage incentive spirometry * Change home statin to high intensity * Recheck magnesium in the morning * Thank you for letting us participate in the care of this patient. We will follow closely with you.
[2018-12-04] MEDS: Aspirin 81 MG Tab.Chew PO SCH (20:43)
[2018-12-05] MEDS: Lactated Ringers 1,000 ML IV SCH ×3 (00:32→14:48)
[2018-12-05] MEDS: Heparin Sodium 5,000 Units/ML Vial SUBCUT SCH ×3 (01:30→16:27)
[2018-12-05] MEDS: Acetaminophen/HYDROcodone 325-5 MG Tab PO PRN ×2 (04:23→08:24)
[2018-12-05] MEDS ORDERED: Potassium Chloride 20 MEQ Tab.ER PO ONE (07:53)
[2018-12-05] MEDS: amLODIPine 5 MG Tab PO SCH (08:24)
[2018-12-05] MEDS: Thiamine 100 MG Tab PO SCH (08:25)
[2018-12-05] MEDS: Lisinopril 10 MG Tab PO SCH (08:25)
[2018-12-05] MEDS: Nicotine 21 MG/24 Hr Patch TRDERM SCH (08:25)
[2018-12-05] MEDS: Folic Acid 1 MG Tab PO SCH (08:25)
[2018-12-05] MEDS: Docusate Sodium 100 MG Cap PO PRN ×2 (08:25→20:15)
[2018-12-05] MEDS: Rosuvastatin 10 MG Tab PO SCH (08:25)
--- NOTE | 2018-12-05 09:06 | PCM.SURGPN ---
- General Info Date of Service: 12/05/18 POD#: 3 Functional Status: Reports: Pain Controlled, Tolerating Diet, Ambulating, Urinating - Review of Systems General: Reports: No Symptoms HEENT: Reports: No Symptoms Pulmonary: Reports: No Symptoms Cardiovascular: Reports: No Symptoms Gastrointestinal: Reports: No Symptoms Genitourinary: Reports: No Symptoms Musculoskeletal: Reports: No Symptoms Skin: Reports: No Symptoms - Patient Data Vitals - Most Recent: Last Vital Signs Temp 98.1 F 12/05/18 04:18 Pulse 95 12/05/18 04:18 Resp 16 12/05/18 04:18 BP 167/81 H 12/05/18 08:25 Pulse Ox 93 L 12/05/18 04:18 Weight - Most Recent: 72.802 kg I&O - Last 24 Hours: Intake & Output 12/04/18 12/05/18 12/05/18 22:59 06:59 14:59 Intake Total 1230 975 Output Total 1100 1300 Balance 130 -325 Lab Results Last 24 Hrs: Laboratory Results - last 24 hr 12/05/18 12/05/18 Range/Units 05:20 05:20 WBC 7.46 (4.23-9.07) K/mm3 RBC 3.37 L (4.63-6.08) M/mm3 Hgb 11.2 L (13.7-17.5) gm/dl Hct 34.2 L (40.1-51.0) % MCV 101.5 H (79.0-92.2) fl MCH 33.2 H (25.7-32.2) pg MCHC 32.7 (32.2-35.5) g/dl RDW Std Deviation 45.5 H (35.1-43.9) fL Plt Count 246 (163-337) K/mm3 MPV 9.9 (9.4-12.3) fl Neut % (Auto) 81.2 H (34.0-67.9) % Lymph % (Auto) 9.8 L (21.8-53.1) % [place] % (Auto) 7.6 (5.3-12.2) % Eos % (Auto) 1.1 (0.8-7.0) Baso % (Auto) 0.3 (0.1-1.2) % Neut # (Auto) 6.06 H (1.78-5.38) K/mm3 Lymph # (Auto) 0.73 L (1.32-3.57) K/mm3 [place] # (Auto) 0.57 (0.30-0.82) K/mm3 Eos # (Auto) 0.08 (0.04-0.54) K/mm3 Baso # (Auto) 0.02 (0.01-0.08) K/mm3 Manual Slide Review Abnormal smear Sodium 133 L (136-145) mEq/L Potassium 3.4 L (3.5-5.1) mEq/L Chloride 99 (98-107) mEq/L Carbon Dioxide 24 (21-32) mEq/L Anion Gap 13.4 (5-15) BUN 9 (7-18) mg/dL Creatinine 0.7 (0.7-1.3) mg/dL Est Cr Clr Drug Dosing 117.00 mL/min Estimated GFR (MDRD) > 60 (>60) mL/min BUN/Creatinine Ratio 12.9 L (14-18) Glucose 69 L (74-106) mg/dL Calcium 8.0 L (8.5-10.1) mg/dL Magnesium 1.8 (1.8-2.4) mg/dl Med Orders - Current: Current Medications Hydrocodone Bitart/Acetaminophen ([place] 325-5 Mg) 1 tab PO Q4H PRN PRN Reason: Pain (moderate 4-6) Last Admin: 12/05/18 08:24 Dose: 1 tab Amlodipine Besylate (Norvasc) 5 mg PO DAILY [facility] Last Admin: 12/05/18 08:24 Dose: 5 mg Aspirin (Aspirin) 81 mg PO BEDTIME [facility] Last Admin: 12/04/18 20:43 Dose: 81 mg Docusate Sodium (Colace) 100 mg PO BID PRN PRN Reason: Constipation Last Admin: 12/05/18 08:25 Dose: 100 mg Folic Acid (Folic Acid) 1 mg PO DAILY [facility] Last Admin: 12/05/18 08:25 Dose: 1 mg Heparin Sodium (Porcine) (Heparin Sodium) 5,000 units SUBCUT Q8H [facility] Last Admin: 12/05/18 08:26 Dose: 5,000 units Hydralazine HCl (Apresoline) 10 mg IVPUSH Q4H PRN PRN Reason: Hypertension Hydromorphone HCl (Dilaudid) 0.5 mg IVPUSH Q2H PRN PRN Reason: Pain Last Admin: 12/03/18 21:09 Dose: 0.5 mg Lactated Ringer's (Ringers, Lactated) 1,000 mls @ 75 mls/hr IV ASDIRECTED [facility] Last Admin: 12/05/18 00:32 Dose: 75 mls/hr Lisinopril (Prinivil) 10 mg PO DAILY [facility] Last Admin: 12/05/18 08:25 Dose: 10 mg Lorazepam (Ativan) 0 mg IVPUSH ASDIRECTED PRN; Protocol PRN Reason: withdrawl Miscellaneous Information (Remove Patch) 1 ea TRDERM DAILY [facility] Last Admin: 12/05/18 08:27 Dose: 1 ea Nicotine (Habitrol) 21 mg TRDERM DAILY [facility] Last Admin: 12/05/18 08:25 Dose: 21 mg Ondansetron HCl (Zofran) 4 mg IVPUSH Q8H PRN PRN Reason: Nausea Rosuvastatin Calcium (Crestor) 20 mg PO DAILY [facility] Last Admin: 12/05/18 08:25 Dose: 20 mg Sodium Chloride (Saline Flush) 10 ml FLUSH ASDIRECTED PRN PRN Reason: Keep Vein Open Last Admin: 12/04/18 09:58 Dose: 10 ml Thiamine HCl (Vitamin B-1) 100 mg PO DAILY [facility] Last Admin: 12/05/18 08:25 Dose: 100 mg Discontinued Medications Albuterol (Proventil Neb Soln) 2.5 mg NEB ONETIME ONE Stop: 12/02/18 20:22 Last Admin: 12/02/18 20:27 Dose: 2.5 mg Amlodipine Besylate (Norvasc) 5 mg PO ONETIME ONE Stop: 12/03/18 10:16 Last Admin: 12/03/18 10:25 Dose: 5 mg Diatrizoate Meglum/Diatrizoate Sod (Gastrografin 37%) 90 ml PO ONETIME ONE Stop: 12/02/18 15:17 Last Admin: 12/02/18 16:51 Dose: 90 ml Fentanyl (Sublimaze) Confirm Administered Dose 250 mcg .ROUTE .STK-MED ONE Stop: 12/02/18 20:04 Fentanyl (Sublimaze) 50 mcg IVPUSH Q5M PRN PRN Reason: Pain Fentanyl (Sublimaze) Confirm Administered Dose 250 mcg .ROUTE .STK-MED ONE Stop: 12/02/18 21:28 Folic Acid (Folic Acid) 1 mg PO DAILY [facility] Glycopyrrolate () Confirm Administered Dose 1 mg .ROUTE .STK-MED ONE Stop: 12/02/18 21:54 Hydromorphone HCl (Dilaudid) 0.5 mg IVPUSH ONETIME ONE Stop: 12/02/18 15:08 Last Admin: 12/02/18 15:18 Dose: 0.5 mg Hydromorphone HCl (Dilaudid) 0.5 mg IVPUSH ONETIME ONE Stop: 12/02/18 17:25 Last Admin: 12/02/18 17:35 Dose: 0.5 mg Hydromorphone HCl (Dilaudid) Confirm Administered Dose 1 mg .ROUTE .STK-MED ONE Stop: 12/02/18 21:22 Hydromorphone HCl (Dilaudid) 0.5 mg IVPUSH Q10M PRN PRN Reason: Pain (severe 7-10) Sodium Chloride (Normal Saline) 1,000 mls @ 150 mls/hr IV ASDIRECTED [facility] Stop: 12/03/18 06:00 Last Admin: 12/03/18 01:51 Dose: 150 mls/hr Lidocaine HCl (Xylocaine-Mpf 1%) Confirm Administered Dose 4 mls @ as directed .ROUTE .STK-MED ONE Stop: 12/02/18 20:03 Ertapenem 1 gm/ Sodium (Chloride) 100 mls @ 100 mls/hr IV ONETIME ONE Stop: 12/02/18 21:07 Last Admin: 12/02/18 20:42 Dose: 100 mls/hr Lactated Ringer's (Ringers, Lactated) Confirm Administered Dose 1,000 mls @ as directed .ROUTE .STK-MED ONE Stop: 12/02/18 21:17 Lactated Ringer's (Ringers, Lactated) Confirm Administered Dose 1,000 mls @ as directed .ROUTE .STK-MED ONE Stop: 12/02/18 21:17 Lactated Ringer's (Ringers, Lactated) Confirm Administered Dose 1,000 mls @ as directed .ROUTE .STK-MED ONE Stop: 12/02/18 22:25 Lactated Ringer's (Ringers, Lactated) 1,000 mls @ 75 mls/hr IV ASDIRECTED [facility] Last Admin: 12/04/18 08:57 Dose: 125 mls/hr Magnesium Sulfate 2 gm/ Premix 50 mls @ 25 mls/hr IV ONETIME ONE Stop: 12/03/18 14:29 Last Admin: 12/03/18 13:34 Dose: 25 mls/hr Iopamidol (Isovue-300 (61%)) 100 ml IVPUSH ONETIME ONE Stop: 12/02/18 15:17 Last Admin: 12/02/18 16:51 Dose: 100 ml Iopamidol (Isovue-370 (76%)) 100 ml IVPUSH ONETIME ONE Stop: 12/04/18 09:26 Last Admin: 12/04/18 09:58 Dose: 100 ml Ketamine HCl (Ketalar) Confirm Administered Dose 500 mg .ROUTE .STK-MED ONE Stop: 12/02/18 21:28 Ketorolac Tromethamine (Toradol) 30 mg IVPUSH ONETIME ONE Stop: 12/02/18 23:10 Last Admin: 12/02/18 23:15 Dose: 30 mg Labetalol HCl (Normodyne) Confirm Administered Dose 100 mg .ROUTE .STK-MED ONE Stop: 12/02/18 23:16 Lidocaine HCl (Xylocaine 1%) Confirm Administered Dose 50 ml .ROUTE .STK-MED ONE Stop: 12/02/18 21:07 Last Admin: 12/02/18 21:10 Dose: 45 ml Midazolam HCl (Versed 1 Mg/Ml) Confirm Administered Dose 2 mg .ROUTE .STK-MED ONE Stop: 12/02/18 20:03 Neostigmine Methylsulfate (Neostigmine) Confirm Administered Dose 5 mg .ROUTE .STK-MED ONE Stop: 12/02/18 21:54 Ondansetron HCl (Zofran) 4 mg IVPUSH ONETIME ONE Stop: 12/02/18 15:08 Last Admin: 12/02/18 15:18 Dose: 4 mg Ondansetron HCl (Zofran) Confirm Administered Dose 4 mg .ROUTE .STK-MED ONE Stop: 12/02/18 20:03 Ondansetron HCl (Zofran) 4 mg IVPUSH ONETIME PRN PRN Reason: Nausea/Vomiting Potassium Chloride (Klor-Con M20) 20 meq PO ONETIME ONE Stop: 12/05/18 07:54 Last Admin: 12/05/18 08:24 Dose: 20 meq Propofol (Diprivan 20 Ml) Confirm Administered Dose 200 mg .ROUTE .STK-MED ONE Stop: 12/02/18 20:03 Rocuronium [place] (Zemuron) Confirm Administered Dose 50 mg .ROUTE .STK-MED ONE Stop: 12/02/18 20:03 Rocuronium [place] (Zemuron) Confirm Administered Dose 50 mg .ROUTE .STK-MED ONE Stop: 12/02/18 23:09 Rosuvastatin Calcium (Crestor) 20 mg PO ONETIME ONE Stop: 12/03/18 10:16 Last Admin: 12/03/18 10:24 Dose: 20 mg Sodium Chloride (Saline Flush) 10 ml FLUSH ONETIME ONE Stop: 12/02/18 15:17 Last Admin: 12/02/18 17:17 Dose: Not Given Spironolactone (Aldactone) 25 mg PO DAILY [facility] Last Admin: 12/04/18 09:01 Dose: 25 mg Succinylcholine Chloride (Succinylcholine In Ns Pf) Confirm Administered Dose 100 mg .ROUTE .STK-MED ONE Stop: 12/02/18 20:03 Thiamine HCl (Vitamin B-1) 100 mg PO DAILY [facility] - Exam Wound/Incisions: Healing Well General: Alert, Oriented, Cooperative, No Acute Distress Lungs: Clear to Auscultation Cardiovascular: Regular Rate, Regular Rhythm GI/Abdominal Exam: Soft, Distended (mildly), Tender (appropriately) - Problem List Review Problem List Initiated/Reviewed/Updated: No - My Orders Last 24 Hours: Active Orders 24 hr Category Date Time Status May Shower [RC] QSHIFT Care 12/04/18 12:16 Active Notify Provider Consults [RC] ASDIRECTED Care 12/04/18 09:03 Active Consult to Physician [CONS] Routine Cons 12/04/18 09:02 Active Soft Diet [DIET] Diet 12/05/18 Breakfast Active BASIC METABOLIC PANEL,BMP [CHEM] AM Lab 12/06/18 05:11 Ordered BASIC METABOLIC PANEL,BMP [CHEM] AM Lab 12/07/18 05:11 Ordered CBC WITH AUTO DIFF [HEME] AM Lab 12/06/18 05:11 Ordered CBC WITH AUTO DIFF [HEME] AM Lab 12/07/18 05:11 Ordered MAGNESIUM [CHEM] AM Lab 12/06/18 05:11 Ordered MAGNESIUM [CHEM] AM Lab 12/07/18 05:11 Ordered Lactated Ringers [Ringers, Lactated] 1,000 ml Med 12/04/18 19:45 Active IV ASDIRECTED Lisinopril [Prinivil] Med 12/04/18 09:15 Active 10 mg PO DAILY Remove Patch Med 12/04/18 09:00 Active 1 ea TRDERM DAILY Rosuvastatin [Crestor] Med 12/04/18 09:00 Active 20 mg PO DAILY amLODIPine [Norvasc] Med 12/04/18 09:00 Active 5 mg PO DAILY Medication Orders Hydrocodone Bitart/Acetaminophen ([place] 325-5 Mg) 1 tab PO Q4H PRN PRN Reason: Pain (moderate 4-6) Last Admin: 12/05/18 08:24 Dose: 1 tab Admin: 12/05/18 04:23 Dose: 1 tab Admin: 12/04/18 20:42 Dose: 1 tab Admin: 12/04/18 14:31 Dose: 1 tab Admin: 12/04/18 09:15 Dose: 1 tab Admin: 12/04/18 05:16 Dose: 1 tab Admin: 12/04/18 00:10 Dose: 1 tab Amlodipine Besylate (Norvasc) 5 mg PO DAILY [facility] Last Admin: 12/05/18 08:24 Dose: 5 mg Admin: 12/04/18 09:01 Dose: 5 mg Aspirin (Aspirin) 81 mg PO BEDTIME [facility] Last Admin: 12/04/18 20:43 Dose: 81 mg Admin: 12/03/18 21:09 Dose: 81 mg Docusate Sodium (Colace) 100 mg PO BID PRN PRN Reason: Constipation Last Admin: 12/05/18 08:25 Dose: 100 mg Admin: 12/04/18 08:58 Dose: 100 mg Admin: 12/03/18 10:24 Dose: 100 mg Folic Acid (Folic Acid) 1 mg PO DAILY [facility] Last Admin: 12/05/18 08:25 Dose: 1 mg Admin: 12/04/18 08:59 Dose: 1 mg Admin: 12/03/18 10:25 Dose: 1 mg Heparin Sodium (Porcine) (Heparin Sodium) 5,000 units SUBCUT Q8H [facility] Last Admin: 12/05/18 08:26 Dose: 5,000 units Admin: 12/05/18 01:30 Dose: 5,000 units Admin: 12/04/18 17:39 Dose: 5,000 units Admin: 12/04/18 09:01 Dose: 5,000 units Admin: 12/04/18 00:15 Dose: 5,000 units Admin: 12/03/18 16:42 Dose: 5,000 units Admin: 12/03/18 08:39 Dose: 5,000 units Hydralazine HCl (Apresoline) 10 mg IVPUSH Q4H PRN PRN Reason: Hypertension Hydromorphone HCl (Dilaudid) 0.5 mg IVPUSH Q2H PRN PRN Reason: Pain Last Admin: 12/03/18 21:09 Dose: 0.5 mg Admin: 12/03/18 08:40 Dose: 0.5 mg Lactated Ringer's (Ringers, Lactated) 1,000 mls @ 75 mls/hr IV ASDIRECTED [facility] Last Admin: 12/05/18 00:32 Dose: 75 mls/hr Lisinopril (Prinivil) 10 mg PO DAILY [facility] Last Admin: 12/05/18 08:25 Dose: 10 mg Admin: 12/04/18 12:36 Dose: 10 mg Lorazepam (Ativan) 0 mg IVPUSH ASDIRECTED PRN; Protocol PRN Reason: withdrawl Miscellaneous Information (Remove Patch) 1 ea TRDERM DAILY [facility] Last Admin: 12/05/18 08:27 Dose: 1 ea Admin: 12/04/18 09:02 Dose: 1 ea Nicotine (Habitrol) 21 mg TRDERM DAILY [facility] Last Admin: 12/05/18 08:25 Dose: 21 mg Admin: 12/04/18 09:02 Dose: 21 mg Admin: 12/03/18 10:27 Dose: 21 mg Ondansetron HCl (Zofran) 4 mg IVPUSH Q8H PRN PRN Reason: Nausea Rosuvastatin Calcium (Crestor) 20 mg PO DAILY [facility] Last Admin: 12/05/18 08:25 Dose: 20 mg Admin: 12/04/18 08:59 Dose: 20 mg Sodium Chloride (Saline Flush) 10 ml FLUSH ASDIRECTED PRN PRN Reason: Keep Vein Open Last Admin: 12/04/18 09:58 Dose: 10 ml Admin: 12/02/18 16:51 Dose: 10 ml Admin: 12/02/18 15:18 Dose: 10 ml Thiamine HCl (Vitamin B-1) 100 mg PO DAILY [facility] Last Admin: 12/05/18 08:25 Dose: 100 mg Admin: 12/04/18 09:00 Dose: 100 mg Admin: 12/03/18 10:24 Dose: 100 mg - Assessment Assessment (Free Text/Narrative):: POD3 ex lap SBR. doing well. Passing flatus - Plan Plan (Free Text/Narrative):: - soft diet this AM, advance diet to regular as tolerated - continue to encourage ambulation - Incentive spirometer - DC IVF if tolerating diet by the end of the day - Disposition pending diet tolerance.
--- NOTE | 2018-12-05 14:45 | PCM.CONSN ---
- General Info Date of Service: 12/05/18 Admission Dx/Problem (Free Text): Admission Diagnosis/Problem Admission Diagnosis/Problem Small bowel obstruction Subjective Update: Alfonso is doing well. Having flatus. No BM. - Review of Systems General: Reports: No Symptoms HEENT: Reports: No Symptoms Pulmonary: Reports: No Symptoms Cardiovascular: Reports: No Symptoms Gastrointestinal: Reports: No Symptoms Psychiatric: Reports: No Symptoms - Patient Data Vitals - Most Recent: Last Vital Signs Temp 98.1 F 12/05/18 04:18 Pulse 96 12/05/18 08:22 Resp 15 12/05/18 08:22 BP 167/81 H 12/05/18 08:25 Pulse Ox 92 L 12/05/18 08:22 Weight - Most Recent: 160 lb 8 oz I&O - Last 24 Hours: Intake & Output 12/04/18 12/05/18 12/05/18 22:59 06:59 14:59 Intake Total 1230 975 540 Output Total 1100 1300 Balance 130 -325 540 Lab Results Last 24 Hours: Laboratory Results - last 24 hr 12/05/18 12/05/18 Range/Units 05:20 05:20 WBC 7.46 (4.23-9.07) K/mm3 RBC 3.37 L (4.63-6.08) M/mm3 Hgb 11.2 L (13.7-17.5) gm/dl Hct 34.2 L (40.1-51.0) % MCV 101.5 H (79.0-92.2) fl MCH 33.2 H (25.7-32.2) pg MCHC 32.7 (32.2-35.5) g/dl RDW Std Deviation 45.5 H (35.1-43.9) fL Plt Count 246 (163-337) K/mm3 MPV 9.9 (9.4-12.3) fl Neut % (Auto) 81.2 H (34.0-67.9) % Lymph % (Auto) 9.8 L (21.8-53.1) % [place] % (Auto) 7.6 (5.3-12.2) % Eos % (Auto) 1.1 (0.8-7.0) Baso % (Auto) 0.3 (0.1-1.2) % Neut # (Auto) 6.06 H (1.78-5.38) K/mm3 Lymph # (Auto) 0.73 L (1.32-3.57) K/mm3 [place] # (Auto) 0.57 (0.30-0.82) K/mm3 Eos # (Auto) 0.08 (0.04-0.54) K/mm3 Baso # (Auto) 0.02 (0.01-0.08) K/mm3 Manual Slide Review Abnormal smear Sodium 133 L (136-145) mEq/L Potassium 3.4 L (3.5-5.1) mEq/L Chloride 99 (98-107) mEq/L Carbon Dioxide 24 (21-32) mEq/L Anion Gap 13.4 (5-15) BUN 9 (7-18) mg/dL Creatinine 0.7 (0.7-1.3) mg/dL Est Cr Clr Drug Dosing 117.00 mL/min Estimated GFR (MDRD) > 60 (>60) mL/min BUN/Creatinine Ratio 12.9 L (14-18) Glucose 69 L (74-106) mg/dL Calcium 8.0 L (8.5-10.1) mg/dL Magnesium 1.8 (1.8-2.4) mg/dl Med Orders - Current: Current Medications Hydrocodone Bitart/Acetaminophen ([place] 325-5 Mg) 1 tab PO Q4H PRN PRN Reason: Pain (moderate 4-6) Last Admin: 12/05/18 08:24 Dose: 1 tab Amlodipine Besylate (Norvasc) 5 mg PO DAILY [facility] Last Admin: 12/05/18 08:24 Dose: 5 mg Aspirin (Aspirin) 81 mg PO BEDTIME [facility] Last Admin: 12/04/18 20:43 Dose: 81 mg Docusate Sodium (Colace) 100 mg PO BID PRN PRN Reason: Constipation Last Admin: 12/05/18 08:25 Dose: 100 mg Folic Acid (Folic Acid) 1 mg PO DAILY [facility] Last Admin: 12/05/18 08:25 Dose: 1 mg Heparin Sodium (Porcine) (Heparin Sodium) 5,000 units SUBCUT Q8H [facility] Last Admin: 12/05/18 08:26 Dose: 5,000 units Hydralazine HCl (Apresoline) 10 mg IVPUSH Q4H PRN PRN Reason: Hypertension Hydromorphone HCl (Dilaudid) 0.5 mg IVPUSH Q2H PRN PRN Reason: Pain Last Admin: 12/03/18 21:09 Dose: 0.5 mg Lactated Ringer's (Ringers, Lactated) 1,000 mls @ 50 mls/hr IV ASDIRECTED [facility] Last Admin: 12/05/18 11:13 Dose: 75 mls/hr Lisinopril (Prinivil) 10 mg PO DAILY [facility] Last Admin: 12/05/18 08:25 Dose: 10 mg Lorazepam (Ativan) 0 mg IVPUSH ASDIRECTED PRN; Protocol PRN Reason: withdrawl Miscellaneous Information (Remove Patch) 1 ea TRDERM DAILY [facility] Last Admin: 12/05/18 08:27 Dose: 1 ea Nicotine (Habitrol) 21 mg TRDERM DAILY [facility] Last Admin: 12/05/18 08:25 Dose: 21 mg Ondansetron HCl (Zofran) 4 mg IVPUSH Q8H PRN PRN Reason: Nausea Rosuvastatin Calcium (Crestor) 20 mg PO DAILY [facility] Last Admin: 12/05/18 08:25 Dose: 20 mg Sodium Chloride (Saline Flush) 10 ml FLUSH ASDIRECTED PRN PRN Reason: Keep Vein Open Last Admin: 12/04/18 09:58 Dose: 10 ml Thiamine HCl (Vitamin B-1) 100 mg PO DAILY [facility] Last Admin: 12/05/18 08:25 Dose: 100 mg Discontinued Medications Albuterol (Proventil Neb Soln) 2.5 mg NEB ONETIME ONE Stop: 12/02/18 20:22 Last Admin: 12/02/18 20:27 Dose: 2.5 mg Amlodipine Besylate (Norvasc) 5 mg PO ONETIME ONE Stop: 12/03/18 10:16 Last Admin: 12/03/18 10:25 Dose: 5 mg Diatrizoate Meglum/Diatrizoate Sod (Gastrografin 37%) 90 ml PO ONETIME ONE Stop: 12/02/18 15:17 Last Admin: 12/02/18 16:51 Dose: 90 ml Fentanyl (Sublimaze) Confirm Administered Dose 250 mcg .ROUTE .STK-MED ONE Stop: 12/02/18 20:04 Fentanyl (Sublimaze) 50 mcg IVPUSH Q5M PRN PRN Reason: Pain Fentanyl (Sublimaze) Confirm Administered Dose 250 mcg .ROUTE .STK-MED ONE Stop: 12/02/18 21:28 Folic Acid (Folic Acid) 1 mg PO DAILY [facility] Glycopyrrolate () Confirm Administered Dose 1 mg .ROUTE .STK-MED ONE Stop: 12/02/18 21:54 Hydromorphone HCl (Dilaudid) 0.5 mg IVPUSH ONETIME ONE Stop: 12/02/18 15:08 Last Admin: 12/02/18 15:18 Dose: 0.5 mg Hydromorphone HCl (Dilaudid) 0.5 mg IVPUSH ONETIME ONE Stop: 12/02/18 17:25 Last Admin: 12/02/18 17:35 Dose: 0.5 mg Hydromorphone HCl (Dilaudid) Confirm Administered Dose 1 mg .ROUTE .STK-MED ONE Stop: 12/02/18 21:22 Hydromorphone HCl (Dilaudid) 0.5 mg IVPUSH Q10M PRN PRN Reason: Pain (severe 7-10) Sodium Chloride (Normal Saline) 1,000 mls @ 150 mls/hr IV ASDIRECTED [facility] Stop: 12/03/18 06:00 Last Admin: 12/03/18 01:51 Dose: 150 mls/hr Lidocaine HCl (Xylocaine-Mpf 1%) Confirm Administered Dose 4 mls @ as directed .ROUTE .STK-MED ONE Stop: 12/02/18 20:03 Ertapenem 1 gm/ Sodium (Chloride) 100 mls @ 100 mls/hr IV ONETIME ONE Stop: 12/02/18 21:07 Last Admin: 12/02/18 20:42 Dose: 100 mls/hr Lactated Ringer's (Ringers, Lactated) Confirm Administered Dose 1,000 mls @ as directed .ROUTE .STK-MED ONE Stop: 12/02/18 21:17 Lactated Ringer's (Ringers, Lactated) Confirm Administered Dose 1,000 mls @ as directed .ROUTE .STK-MED ONE Stop: 12/02/18 21:17 Lactated Ringer's (Ringers, Lactated) Confirm Administered Dose 1,000 mls @ as directed .ROUTE .STK-MED ONE Stop: 12/02/18 22:25 Lactated Ringer's (Ringers, Lactated) 1,000 mls @ 75 mls/hr IV ASDIRECTED [facility] Last Admin: 12/04/18 08:57 Dose: 125 mls/hr Magnesium Sulfate 2 gm/ Premix 50 mls @ 25 mls/hr IV ONETIME ONE Stop: 12/03/18 14:29 Last Admin: 12/03/18 13:34 Dose: 25 mls/hr Iopamidol (Isovue-300 (61%)) 100 ml IVPUSH ONETIME ONE Stop: 12/02/18 15:17 Last Admin: 12/02/18 16:51 Dose: 100 ml Iopamidol (Isovue-370 (76%)) 100 ml IVPUSH ONETIME ONE Stop: 12/04/18 09:26 Last Admin: 12/04/18 09:58 Dose: 100 ml Ketamine HCl (Ketalar) Confirm Administered Dose 500 mg .ROUTE .STK-MED ONE Stop: 12/02/18 21:28 Ketorolac Tromethamine (Toradol) 30 mg IVPUSH ONETIME ONE Stop: 12/02/18 23:10 Last Admin: 12/02/18 23:15 Dose: 30 mg Labetalol HCl (Normodyne) Confirm Administered Dose 100 mg .ROUTE .STK-MED ONE Stop: 12/02/18 23:16 Lidocaine HCl (Xylocaine 1%) Confirm Administered Dose 50 ml .ROUTE .STK-MED ONE Stop: 12/02/18 21:07 Last Admin: 12/02/18 21:10 Dose: 45 ml Midazolam HCl (Versed 1 Mg/Ml) Confirm Administered Dose 2 mg .ROUTE .STK-MED ONE Stop: 12/02/18 20:03 Neostigmine Methylsulfate (Neostigmine) Confirm Administered Dose 5 mg .ROUTE .STK-MED ONE Stop: 12/02/18 21:54 Ondansetron HCl (Zofran) 4 mg IVPUSH ONETIME ONE Stop: 12/02/18 15:08 Last Admin: 12/02/18 15:18 Dose: 4 mg Ondansetron HCl (Zofran) Confirm Administered Dose 4 mg .ROUTE .STK-MED ONE Stop: 12/02/18 20:03 Ondansetron HCl (Zofran) 4 mg IVPUSH ONETIME PRN PRN Reason: Nausea/Vomiting Potassium Chloride (Klor-Con M20) 20 meq PO ONETIME ONE Stop: 12/05/18 07:54 Last Admin: 12/05/18 08:24 Dose: 20 meq Propofol (Diprivan 20 Ml) Confirm Administered Dose 200 mg .ROUTE .STK-MED ONE Stop: 12/02/18 20:03 Rocuronium [place] (Zemuron) Confirm Administered Dose 50 mg .ROUTE .STK-MED ONE Stop: 12/02/18 20:03 Rocuronium [place] (Zemuron) Confirm Administered Dose 50 mg .ROUTE .STK-MED ONE Stop: 12/02/18 23:09 Rosuvastatin Calcium (Crestor) 20 mg PO ONETIME ONE Stop: 12/03/18 10:16 Last Admin: 12/03/18 10:24 Dose: 20 mg Sodium Chloride (Saline Flush) 10 ml FLUSH ONETIME ONE Stop: 12/02/18 15:17 Last Admin: 12/02/18 17:17 Dose: Not Given Spironolactone (Aldactone) 25 mg PO DAILY [facility] Last Admin: 12/04/18 09:01 Dose: 25 mg Succinylcholine Chloride (Succinylcholine In Ns Pf) Confirm Administered Dose 100 mg .ROUTE .STK-MED ONE Stop: 12/02/18 20:03 Thiamine HCl (Vitamin B-1) 100 mg PO DAILY [facility] - Exam General: Alert, Oriented HEENT: Pupils Equal Neck: Supple Lungs: Clear to Auscultation, Normal Respiratory Effort Cardiovascular: Regular Rate, Regular Rhythm GI/Abdominal Exam: Normal Bowel Sounds, Soft Consult PN Assessment/Plan Procedures: Procedures X-RAY EXAM OF SKULL (06/29/17) Problem List Initiated/Reviewed/Updated: Yes Plan: Assessment * Postop day 2 for small bowel resection secondary to intestinal ischemia * CTA of the chest impression: 1. Atherosclerotic change within the thoracic aorta without aneurysm, dissection, or stenosis. 2. No findings of pulmonary embolism. 3. Minimal right-sided pleural effusion and mild atelectasis within both posterior lungs. * CTA of the abdomen and pelvis, impression: 1. Diffuse atheromatous change. Areas of stenosis as noted above. Greatest stenosis is about 50%. 2. Dilated small bowel loops fairly stable in size from previous exam which may represent residual post op ileus. 3. Slightly increased free fluid within the pelvis. Small amount of fluid is seen around the liver. Minimal free air is seen compatible with surgery. * Peripheral vascular disease * Hyponatremia - improving - sodium 133 * Hypokalemia - 3.4 * Hypertension * Hyperlipidemia * Tobaccoism * ETOH use : 6-12 beers daily * Hypomagnesemia - magnesium 1.8 * Diet being advanced to clear liquids Recommendation * Restart spironolactone tomorrow. * Continue lisinopril 10 mg daily. * K-Dur 20 meq PO today and recheck CMP in am. * CIWA protocol. Patient will be at increased risk for alcohol withdrawal after 24-48 hours. * Counseling on tobacco cessation. 5 minutes spent in counseling. * CT results consistent with diffuse atherosclerosis. Recommend high-dose statin medication, blood pressure control, smoking cessation, aspirin, Mediterranean diet, and exercise. Discussed this with the patient today. * Hydralazine 10 mg every 4 hours when necessary systolic blood pressure greater than 200 or diastolic blood pressure greater than 110. * Encourage incentive spirometry * Change home statin to high intensity * Recheck magnesium in the morning * Thank you for letting us participate in the care of this patient. We will follow closely with you.
[2018-12-05] MEDS: Aspirin 81 MG Tab.Chew PO SCH (20:15)
[2018-12-06] MEDS: Heparin Sodium 5,000 Units/ML Vial SUBCUT SCH ×2 (01:23→08:53)
--- NOTE | 2018-12-06 08:29 | PCM.SURGPN ---
- General Info Date of Service: 12/06/18 POD#: 4 Functional Status: Reports: Pain Controlled, Tolerating Diet, Ambulating - Review of Systems General: Reports: No Symptoms HEENT: Reports: No Symptoms Pulmonary: Reports: No Symptoms Cardiovascular: Reports: No Symptoms Gastrointestinal: Reports: No Symptoms, Other (passing flatus, had BMs x 2) Genitourinary: Reports: No Symptoms Musculoskeletal: Reports: No Symptoms Skin: Reports: No Symptoms Neurological: Reports: No Symptoms Psychiatric: Reports: No Symptoms - Patient Data Vitals - Most Recent: Last Vital Signs Temp 98.1 F 12/06/18 05:18 Pulse 97 12/06/18 05:18 Resp 16 12/06/18 05:18 BP 155/94 H 12/06/18 05:18 Pulse Ox 94 L 12/06/18 05:18 Weight - Most Recent: 70.443 kg I&O - Last 24 Hours: Intake & Output 12/05/18 12/06/18 12/06/18 22:59 06:59 14:59 Intake Total 1100 854 Output Total 750 1660 Balance 350 -806 Lab Results Last 24 Hrs: Laboratory Results - last 24 hr 12/06/18 12/06/18 Range/Units 05:16 05:16 WBC 5.25 (4.23-9.07) K/mm3 RBC 3.55 L (4.63-6.08) M/mm3 Hgb 11.7 L (13.7-17.5) gm/dl Hct 35.5 L (40.1-51.0) % MCV 100.0 H (79.0-92.2) fl MCH 33.0 H (25.7-32.2) pg MCHC 33.0 (32.2-35.5) g/dl RDW Std Deviation 44.1 H (35.1-43.9) fL Plt Count 289 (163-337) K/mm3 MPV 9.8 (9.4-12.3) fl Neut % (Auto) 68.0 H (34.0-67.9) % Lymph % (Auto) 16.2 L (21.8-53.1) % [place] % (Auto) 12.0 (5.3-12.2) % Eos % (Auto) 3.2 (0.8-7.0) Baso % (Auto) 0.4 (0.1-1.2) % Neut # (Auto) 3.57 (1.78-5.38) K/mm3 Lymph # (Auto) 0.85 L (1.32-3.57) K/mm3 [place] # (Auto) 0.63 (0.30-0.82) K/mm3 Eos # (Auto) 0.17 (0.04-0.54) K/mm3 Baso # (Auto) 0.02 (0.01-0.08) K/mm3 Sodium 134 L (136-145) mEq/L Potassium 3.4 L (3.5-5.1) mEq/L Chloride 100 (98-107) mEq/L Carbon Dioxide 24 (21-32) mEq/L Anion Gap 13.4 (5-15) BUN 8 (7-18) mg/dL Creatinine 0.6 L (0.7-1.3) mg/dL Est Cr Clr Drug Dosing 132.08 mL/min Estimated GFR (MDRD) > 60 (>60) mL/min BUN/Creatinine Ratio 13.3 L (14-18) Glucose 89 (74-106) mg/dL Calcium 8.3 L (8.5-10.1) mg/dL Magnesium 2.0 (1.8-2.4) mg/dl Med Orders - Current: Current Medications Hydrocodone Bitart/Acetaminophen ([place] 325-5 Mg) 1 tab PO Q4H PRN PRN Reason: Pain (moderate 4-6) Last Admin: 12/05/18 08:24 Dose: 1 tab Amlodipine Besylate (Norvasc) 5 mg PO DAILY [facility] Last Admin: 12/05/18 08:24 Dose: 5 mg Aspirin (Aspirin) 81 mg PO BEDTIME [facility] Last Admin: 12/05/18 20:15 Dose: 81 mg Docusate Sodium (Colace) 100 mg PO BID PRN PRN Reason: Constipation Last Admin: 12/05/18 20:15 Dose: 100 mg Folic Acid (Folic Acid) 1 mg PO DAILY [facility] Last Admin: 12/05/18 08:25 Dose: 1 mg Heparin Sodium (Porcine) (Heparin Sodium) 5,000 units SUBCUT Q8H [facility] Last Admin: 12/06/18 01:23 Dose: 5,000 units Hydralazine HCl (Apresoline) 10 mg IVPUSH Q4H PRN PRN Reason: Hypertension Hydromorphone HCl (Dilaudid) 0.5 mg IVPUSH Q2H PRN PRN Reason: Pain Last Admin: 12/03/18 21:09 Dose: 0.5 mg Lactated Ringer's (Ringers, Lactated) 1,000 mls @ 50 mls/hr IV ASDIRECTED [facility] Last Admin: 12/05/18 14:48 Dose: 75 mls/hr Lisinopril (Prinivil) 10 mg PO DAILY [facility] Last Admin: 12/05/18 08:25 Dose: 10 mg Lorazepam (Ativan) 0 mg IVPUSH ASDIRECTED PRN; Protocol PRN Reason: withdrawl Miscellaneous Information (Remove Patch) 1 ea TRDERM DAILY [facility] Last Admin: 12/05/18 08:27 Dose: 1 ea Nicotine (Habitrol) 21 mg TRDERM DAILY [facility] Last Admin: 12/05/18 08:25 Dose: 21 mg Ondansetron HCl (Zofran) 4 mg IVPUSH Q8H PRN PRN Reason: Nausea Rosuvastatin Calcium (Crestor) 20 mg PO DAILY [facility] Last Admin: 12/05/18 08:25 Dose: 20 mg Sodium Chloride (Saline Flush) 10 ml FLUSH ASDIRECTED PRN PRN Reason: Keep Vein Open Last Admin: 12/04/18 09:58 Dose: 10 ml Thiamine HCl (Vitamin B-1) 100 mg PO DAILY [facility] Last Admin: 12/05/18 08:25 Dose: 100 mg Discontinued Medications Albuterol (Proventil Neb Soln) 2.5 mg NEB ONETIME ONE Stop: 12/02/18 20:22 Last Admin: 12/02/18 20:27 Dose: 2.5 mg Amlodipine Besylate (Norvasc) 5 mg PO ONETIME ONE Stop: 12/03/18 10:16 Last Admin: 12/03/18 10:25 Dose: 5 mg Diatrizoate Meglum/Diatrizoate Sod (Gastrografin 37%) 90 ml PO ONETIME ONE Stop: 12/02/18 15:17 Last Admin: 12/02/18 16:51 Dose: 90 ml Fentanyl (Sublimaze) Confirm Administered Dose 250 mcg .ROUTE .STK-MED ONE Stop: 12/02/18 20:04 Fentanyl (Sublimaze) 50 mcg IVPUSH Q5M PRN PRN Reason: Pain Fentanyl (Sublimaze) Confirm Administered Dose 250 mcg .ROUTE .STK-MED ONE Stop: 12/02/18 21:28 Folic Acid (Folic Acid) 1 mg PO DAILY [facility] Glycopyrrolate () Confirm Administered Dose 1 mg .ROUTE .STK-MED ONE Stop: 12/02/18 21:54 Hydromorphone HCl (Dilaudid) 0.5 mg IVPUSH ONETIME ONE Stop: 12/02/18 15:08 Last Admin: 12/02/18 15:18 Dose: 0.5 mg Hydromorphone HCl (Dilaudid) 0.5 mg IVPUSH ONETIME ONE Stop: 12/02/18 17:25 Last Admin: 12/02/18 17:35 Dose: 0.5 mg Hydromorphone HCl (Dilaudid) Confirm Administered Dose 1 mg .ROUTE .STK-MED ONE Stop: 12/02/18 21:22 Hydromorphone HCl (Dilaudid) 0.5 mg IVPUSH Q10M PRN PRN Reason: Pain (severe 7-10) Sodium Chloride (Normal Saline) 1,000 mls @ 150 mls/hr IV ASDIRECTED [facility] Stop: 12/03/18 06:00 Last Admin: 12/03/18 01:51 Dose: 150 mls/hr Lidocaine HCl (Xylocaine-Mpf 1%) Confirm Administered Dose 4 mls @ as directed .ROUTE .STK-MED ONE Stop: 12/02/18 20:03 Ertapenem 1 gm/ Sodium (Chloride) 100 mls @ 100 mls/hr IV ONETIME ONE Stop: 12/02/18 21:07 Last Admin: 12/02/18 20:42 Dose: 100 mls/hr Lactated Ringer's (Ringers, Lactated) Confirm Administered Dose 1,000 mls @ as directed .ROUTE .STK-MED ONE Stop: 12/02/18 21:17 Lactated Ringer's (Ringers, Lactated) Confirm Administered Dose 1,000 mls @ as directed .ROUTE .STK-MED ONE Stop: 12/02/18 21:17 Lactated Ringer's (Ringers, Lactated) Confirm Administered Dose 1,000 mls @ as directed .ROUTE .STK-MED ONE Stop: 12/02/18 22:25 Lactated Ringer's (Ringers, Lactated) 1,000 mls @ 75 mls/hr IV ASDIRECTED [facility] Last Admin: 12/04/18 08:57 Dose: 125 mls/hr Magnesium Sulfate 2 gm/ Premix 50 mls @ 25 mls/hr IV ONETIME ONE Stop: 12/03/18 14:29 Last Admin: 12/03/18 13:34 Dose: 25 mls/hr Iopamidol (Isovue-300 (61%)) 100 ml IVPUSH ONETIME ONE Stop: 12/02/18 15:17 Last Admin: 12/02/18 16:51 Dose: 100 ml Iopamidol (Isovue-370 (76%)) 100 ml IVPUSH ONETIME ONE Stop: 12/04/18 09:26 Last Admin: 12/04/18 09:58 Dose: 100 ml Ketamine HCl (Ketalar) Confirm Administered Dose 500 mg .ROUTE .STK-MED ONE Stop: 12/02/18 21:28 Ketorolac Tromethamine (Toradol) 30 mg IVPUSH ONETIME ONE Stop: 12/02/18 23:10 Last Admin: 12/02/18 23:15 Dose: 30 mg Labetalol HCl (Normodyne) Confirm Administered Dose 100 mg .ROUTE .STK-MED ONE Stop: 12/02/18 23:16 Lidocaine HCl (Xylocaine 1%) Confirm Administered Dose 50 ml .ROUTE .STK-MED ONE Stop: 12/02/18 21:07 Last Admin: 12/02/18 21:10 Dose: 45 ml Midazolam HCl (Versed 1 Mg/Ml) Confirm Administered Dose 2 mg .ROUTE .STK-MED ONE Stop: 12/02/18 20:03 Neostigmine Methylsulfate (Neostigmine) Confirm Administered Dose 5 mg .ROUTE .STK-MED ONE Stop: 12/02/18 21:54 Ondansetron HCl (Zofran) 4 mg IVPUSH ONETIME ONE Stop: 12/02/18 15:08 Last Admin: 12/02/18 15:18 Dose: 4 mg Ondansetron HCl (Zofran) Confirm Administered Dose 4 mg .ROUTE .STK-MED ONE Stop: 12/02/18 20:03 Ondansetron HCl (Zofran) 4 mg IVPUSH ONETIME PRN PRN Reason: Nausea/Vomiting Potassium Chloride (Klor-Con M20) 20 meq PO ONETIME ONE Stop: 12/05/18 07:54 Last Admin: 12/05/18 08:24 Dose: 20 meq Propofol (Diprivan 20 Ml) Confirm Administered Dose 200 mg .ROUTE .STK-MED ONE Stop: 12/02/18 20:03 Rocuronium [place] (Zemuron) Confirm Administered Dose 50 mg .ROUTE .STK-MED ONE Stop: 12/02/18 20:03 Rocuronium [place] (Zemuron) Confirm Administered Dose 50 mg .ROUTE .STK-MED ONE Stop: 12/02/18 23:09 Rosuvastatin Calcium (Crestor) 20 mg PO ONETIME ONE Stop: 12/03/18 10:16 Last Admin: 12/03/18 10:24 Dose: 20 mg Sodium Chloride (Saline Flush) 10 ml FLUSH ONETIME ONE Stop: 12/02/18 15:17 Last Admin: 12/02/18 17:17 Dose: Not Given Spironolactone (Aldactone) 25 mg PO DAILY [facility] Last Admin: 12/04/18 09:01 Dose: 25 mg Succinylcholine Chloride (Succinylcholine In Ns Pf) Confirm Administered Dose 100 mg .ROUTE .STK-MED ONE Stop: 12/02/18 20:03 Thiamine HCl (Vitamin B-1) 100 mg PO DAILY [facility] - Exam Wound/Incisions: Healing Well General: Alert, Oriented, Cooperative, No Acute Distress GI/Abdominal Exam: Soft, Non-Tender, No Distention, Other (incisiona is healing well) - Problem List Review Problem List Initiated/Reviewed/Updated: No - My Orders Last 24 Hours: Active Orders 24 hr Category Date Time Status Ready for Discharge [RC] PER UNIT ROUTINE Care 12/06/18 08:26 Ordered Regular Diet [DIET] Diet 12/06/18 Breakfast Active BASIC METABOLIC PANEL,BMP [CHEM] AM Lab 12/07/18 05:11 Ordered CBC WITH AUTO DIFF [HEME] AM Lab 12/07/18 05:11 Ordered MAGNESIUM [CHEM] AM Lab 12/07/18 05:11 Ordered Medication Orders Hydrocodone Bitart/Acetaminophen ([place] 325-5 Mg) 1 tab PO Q4H PRN PRN Reason: Pain (moderate 4-6) Last Admin: 12/05/18 08:24 Dose: 1 tab Admin: 12/05/18 04:23 Dose: 1 tab Admin: 12/04/18 20:42 Dose: 1 tab Admin: 12/04/18 14:31 Dose: 1 tab Admin: 12/04/18 09:15 Dose: 1 tab Admin: 12/04/18 05:16 Dose: 1 tab Admin: 12/04/18 00:10 Dose: 1 tab Amlodipine Besylate (Norvasc) 5 mg PO DAILY [facility] Last Admin: 12/05/18 08:24 Dose: 5 mg Admin: 12/04/18 09:01 Dose: 5 mg Aspirin (Aspirin) 81 mg PO BEDTIME [facility] Last Admin: 12/05/18 20:15 Dose: 81 mg Admin: 12/04/18 20:43 Dose: 81 mg Admin: 12/03/18 21:09 Dose: 81 mg Docusate Sodium (Colace) 100 mg PO BID PRN PRN Reason: Constipation Last Admin: 12/05/18 20:15 Dose: 100 mg Admin: 12/05/18 08:25 Dose: 100 mg Admin: 12/04/18 08:58 Dose: 100 mg Admin: 12/03/18 10:24 Dose: 100 mg Folic Acid (Folic Acid) 1 mg PO DAILY [facility] Last Admin: 12/05/18 08:25 Dose: 1 mg Admin: 12/04/18 08:59 Dose: 1 mg Admin: 12/03/18 10:25 Dose: 1 mg Heparin Sodium (Porcine) (Heparin Sodium) 5,000 units SUBCUT Q8H [facility] Last Admin: 12/06/18 01:23 Dose: 5,000 units Admin: 12/05/18 16:27 Dose: 5,000 units Admin: 12/05/18 08:26 Dose: 5,000 units Admin: 12/05/18 01:30 Dose: 5,000 units Admin: 12/04/18 17:39 Dose: 5,000 units Admin: 12/04/18 09:01 Dose: 5,000 units Admin: 12/04/18 00:15 Dose: 5,000 units Admin: 12/03/18 16:42 Dose: 5,000 units Admin: 12/03/18 08:39 Dose: 5,000 units Hydralazine HCl (Apresoline) 10 mg IVPUSH Q4H PRN PRN Reason: Hypertension Hydromorphone HCl (Dilaudid) 0.5 mg IVPUSH Q2H PRN PRN Reason: Pain Last Admin: 12/03/18 21:09 Dose: 0.5 mg Admin: 12/03/18 08:40 Dose: 0.5 mg Lactated Ringer's (Ringers, Lactated) 1,000 mls @ 50 mls/hr IV ASDIRECTED [facility] Last Admin: 12/05/18 14:48 Dose: 75 mls/hr Infusion: 12/05/18 14:48 Dose: 75 mls/hr Admin: 12/05/18 11:13 Dose: 75 mls/hr Infusion: 12/05/18 11:13 Dose: 75 mls/hr Admin: 12/05/18 00:32 Dose: 75 mls/hr Lisinopril (Prinivil) 10 mg PO DAILY [facility] Last Admin: 12/05/18 08:25 Dose: 10 mg Admin: 12/04/18 12:36 Dose: 10 mg Lorazepam (Ativan) 0 mg IVPUSH ASDIRECTED PRN; Protocol PRN Reason: withdrawl Miscellaneous Information (Remove Patch) 1 ea TRDERM DAILY [facility] Last Admin: 12/05/18 08:27 Dose: 1 ea Admin: 12/04/18 09:02 Dose: 1 ea Nicotine (Habitrol) 21 mg TRDERM DAILY [facility] Last Admin: 12/05/18 08:25 Dose: 21 mg Admin: 12/04/18 09:02 Dose: 21 mg Admin: 12/03/18 10:27 Dose: 21 mg Ondansetron HCl (Zofran) 4 mg IVPUSH Q8H PRN PRN Reason: Nausea Rosuvastatin Calcium (Crestor) 20 mg PO DAILY [facility] Last Admin: 12/05/18 08:25 Dose: 20 mg Admin: 12/04/18 08:59 Dose: 20 mg Sodium Chloride (Saline Flush) 10 ml FLUSH ASDIRECTED PRN PRN Reason: Keep Vein Open Last Admin: 12/04/18 09:58 Dose: 10 ml Admin: 12/02/18 16:51 Dose: 10 ml Admin: 12/02/18 15:18 Dose: 10 ml Thiamine HCl (Vitamin B-1) 100 mg PO DAILY [facility] Last Admin: 12/05/18 08:25 Dose: 100 mg Admin: 12/04/18 09:00 Dose: 100 mg Admin: 12/03/18 10:24 Dose: 100 mg - Assessment Assessment (Free Text/Narrative):: DOing well. Had BMs x 2, passing flatus, tolerated regular diet, ambulated, on Room air, pain is well controlled. - Plan Plan (Free Text/Narrative):: Will discharge to home today. No lifting more than 10 Lb for 6 weeks. Patient will see me in clinic in 2 weeks. I discussed this plan with the patient who agrees.
[2018-12-06] MEDS: Thiamine 100 MG Tab PO SCH (08:52)
[2018-12-06] MEDS: Rosuvastatin 10 MG Tab PO SCH (08:52)
[2018-12-06] MEDS: Nicotine 21 MG/24 Hr Patch TRDERM SCH (08:52)
[2018-12-06] MEDS: Lisinopril 10 MG Tab PO SCH (08:52)
[2018-12-06] MEDS: amLODIPine 5 MG Tab PO SCH (08:53)
[2018-12-06] MEDS: Folic Acid 1 MG Tab PO SCH (08:53)
[2018-12-06] MEDS ORDERED: Potassium Chloride 20 MEQ Tab.ER PO ONE ×2 (09:02→13:30)
--- NOTE | 2018-12-06 14:06 | PCM.CONSN ---
- General Info Date of Service: 12/06/18 Admission Dx/Problem (Free Text): Bowel ischemia Subjective Update: Patient is doing well. Plan for discharge today. Functional Status: Reports: Pain Controlled - Review of Systems General: Reports: No Symptoms HEENT: Reports: No Symptoms Pulmonary: Reports: No Symptoms Cardiovascular: Reports: No Symptoms Gastrointestinal: Reports: No Symptoms - Patient Data Vitals - Most Recent: Last Vital Signs Temp 99.0 F 12/06/18 12:42 Pulse 92 12/06/18 12:42 Resp 18 12/06/18 12:42 BP 163/90 H 12/06/18 12:42 Pulse Ox 96 12/06/18 12:42 Weight - Most Recent: 155 lb 4.8 oz I&O - Last 24 Hours: Intake & Output 12/05/18 12/06/18 12/06/18 22:59 06:59 14:59 Intake Total 1100 854 Output Total 750 1660 Balance 350 -806 Lab Results Last 24 Hours: Laboratory Results - last 24 hr 12/06/18 12/06/18 Range/Units 05:16 05:16 WBC 5.25 (4.23-9.07) K/mm3 RBC 3.55 L (4.63-6.08) M/mm3 Hgb 11.7 L (13.7-17.5) gm/dl Hct 35.5 L (40.1-51.0) % MCV 100.0 H (79.0-92.2) fl MCH 33.0 H (25.7-32.2) pg MCHC 33.0 (32.2-35.5) g/dl RDW Std Deviation 44.1 H (35.1-43.9) fL Plt Count 289 (163-337) K/mm3 MPV 9.8 (9.4-12.3) fl Neut % (Auto) 68.0 H (34.0-67.9) % Lymph % (Auto) 16.2 L (21.8-53.1) % Sharkey % (Auto) 12.0 (5.3-12.2) % Eos % (Auto) 3.2 (0.8-7.0) Baso % (Auto) 0.4 (0.1-1.2) % Neut # (Auto) 3.57 (1.78-5.38) K/mm3 Lymph # (Auto) 0.85 L (1.32-3.57) K/mm3 Sharkey # (Auto) 0.63 (0.30-0.82) K/mm3 Eos # (Auto) 0.17 (0.04-0.54) K/mm3 Baso # (Auto) 0.02 (0.01-0.08) K/mm3 Sodium 134 L (136-145) mEq/L Potassium 3.4 L (3.5-5.1) mEq/L Chloride 100 (98-107) mEq/L Carbon Dioxide 24 (21-32) mEq/L Anion Gap 13.4 (5-15) BUN 8 (7-18) mg/dL Creatinine 0.6 L (0.7-1.3) mg/dL Est Cr Clr Drug Dosing 132.08 mL/min Estimated GFR (MDRD) > 60 (>60) mL/min BUN/Creatinine Ratio 13.3 L (14-18) Glucose 89 (74-106) mg/dL Calcium 8.3 L (8.5-10.1) mg/dL Magnesium 2.0 (1.8-2.4) mg/dl Med Orders - Current: Current Medications Hydrocodone Bitart/Acetaminophen (Lititz 325-5 Mg) 1 tab PO Q4H PRN PRN Reason: Pain (moderate 4-6) Last Admin: 12/05/18 08:24 Dose: 1 tab Amlodipine Besylate (Norvasc) 5 mg PO DAILY [facility] Last Admin: 12/06/18 08:53 Dose: 5 mg Aspirin (Aspirin) 81 mg PO BEDTIME [facility] Last Admin: 12/05/18 20:15 Dose: 81 mg Docusate Sodium (Colace) 100 mg PO BID PRN PRN Reason: Constipation Last Admin: 12/05/18 20:15 Dose: 100 mg Folic Acid (Folic Acid) 1 mg PO DAILY [facility] Last Admin: 12/06/18 08:53 Dose: 1 mg Heparin Sodium (Porcine) (Heparin Sodium) 5,000 units SUBCUT Q8H [facility] Last Admin: 12/06/18 08:53 Dose: 5,000 units Hydralazine HCl (Apresoline) 10 mg IVPUSH Q4H PRN PRN Reason: Hypertension Hydromorphone HCl (Dilaudid) 0.5 mg IVPUSH Q2H PRN PRN Reason: Pain Last Admin: 12/03/18 21:09 Dose: 0.5 mg Lactated Ringer's (Ringers, Lactated) 1,000 mls @ 50 mls/hr IV ASDIRECTED [facility] Last Admin: 12/05/18 14:48 Dose: 75 mls/hr Lisinopril (Prinivil) 10 mg PO DAILY [facility] Last Admin: 12/06/18 08:52 Dose: 10 mg Lorazepam (Ativan) 0 mg IVPUSH ASDIRECTED PRN; Protocol PRN Reason: withdrawl Miscellaneous Information (Remove Patch) 1 ea TRDERM DAILY [facility] Last Admin: 12/06/18 08:55 Dose: 1 ea Nicotine (Habitrol) 21 mg TRDERM DAILY [facility] Last Admin: 12/06/18 08:52 Dose: 21 mg Ondansetron HCl (Zofran) 4 mg IVPUSH Q8H PRN PRN Reason: Nausea Rosuvastatin Calcium (Crestor) 20 mg PO DAILY [facility] Last Admin: 12/06/18 08:52 Dose: 20 mg Sodium Chloride (Saline Flush) 10 ml FLUSH ASDIRECTED PRN PRN Reason: Keep Vein Open Last Admin: 12/04/18 09:58 Dose: 10 ml Thiamine HCl (Vitamin B-1) 100 mg PO DAILY [facility] Last Admin: 12/06/18 08:52 Dose: 100 mg Discontinued Medications Albuterol (Proventil Neb Soln) 2.5 mg NEB ONETIME ONE Stop: 12/02/18 20:22 Last Admin: 12/02/18 20:27 Dose: 2.5 mg Amlodipine Besylate (Norvasc) 5 mg PO ONETIME ONE Stop: 12/03/18 10:16 Last Admin: 12/03/18 10:25 Dose: 5 mg Diatrizoate Meglum/Diatrizoate Sod (Gastrografin 37%) 90 ml PO ONETIME ONE Stop: 12/02/18 15:17 Last Admin: 12/02/18 16:51 Dose: 90 ml Fentanyl (Sublimaze) Confirm Administered Dose 250 mcg .ROUTE .STK-MED ONE Stop: 12/02/18 20:04 Fentanyl (Sublimaze) 50 mcg IVPUSH Q5M PRN PRN Reason: Pain Fentanyl (Sublimaze) Confirm Administered Dose 250 mcg .ROUTE .STK-MED ONE Stop: 12/02/18 21:28 Folic Acid (Folic Acid) 1 mg PO DAILY [facility] Glycopyrrolate () Confirm Administered Dose 1 mg .ROUTE .STK-MED ONE Stop: 12/02/18 21:54 Hydromorphone HCl (Dilaudid) 0.5 mg IVPUSH ONETIME ONE Stop: 12/02/18 15:08 Last Admin: 12/02/18 15:18 Dose: 0.5 mg Hydromorphone HCl (Dilaudid) 0.5 mg IVPUSH ONETIME ONE Stop: 12/02/18 17:25 Last Admin: 12/02/18 17:35 Dose: 0.5 mg Hydromorphone HCl (Dilaudid) Confirm Administered Dose 1 mg .ROUTE .STK-MED ONE Stop: 12/02/18 21:22 Hydromorphone HCl (Dilaudid) 0.5 mg IVPUSH Q10M PRN PRN Reason: Pain (severe 7-10) Sodium Chloride (Normal Saline) 1,000 mls @ 150 mls/hr IV ASDIRECTED [facility] Stop: 12/03/18 06:00 Last Admin: 12/03/18 01:51 Dose: 150 mls/hr Lidocaine HCl (Xylocaine-Mpf 1%) Confirm Administered Dose 4 mls @ as directed .ROUTE .STK-MED ONE Stop: 12/02/18 20:03 Ertapenem 1 gm/ Sodium (Chloride) 100 mls @ 100 mls/hr IV ONETIME ONE Stop: 12/02/18 21:07 Last Admin: 12/02/18 20:42 Dose: 100 mls/hr Lactated Ringer's (Ringers, Lactated) Confirm Administered Dose 1,000 mls @ as directed .ROUTE .STK-MED ONE Stop: 12/02/18 21:17 Lactated Ringer's (Ringers, Lactated) Confirm Administered Dose 1,000 mls @ as directed .ROUTE .STK-MED ONE Stop: 12/02/18 21:17 Lactated Ringer's (Ringers, Lactated) Confirm Administered Dose 1,000 mls @ as directed .ROUTE .STK-MED ONE Stop: 12/02/18 22:25 Lactated Ringer's (Ringers, Lactated) 1,000 mls @ 75 mls/hr IV ASDIRECTED [facility] Last Admin: 12/04/18 08:57 Dose: 125 mls/hr Magnesium Sulfate 2 gm/ Premix 50 mls @ 25 mls/hr IV ONETIME ONE Stop: 12/03/18 14:29 Last Admin: 12/03/18 13:34 Dose: 25 mls/hr Iopamidol (Isovue-300 (61%)) 100 ml IVPUSH ONETIME ONE Stop: 12/02/18 15:17 Last Admin: 12/02/18 16:51 Dose: 100 ml Iopamidol (Isovue-370 (76%)) 100 ml IVPUSH ONETIME ONE Stop: 12/04/18 09:26 Last Admin: 12/04/18 09:58 Dose: 100 ml Ketamine HCl (Ketalar) Confirm Administered Dose 500 mg .ROUTE .STK-MED ONE Stop: 12/02/18 21:28 Ketorolac Tromethamine (Toradol) 30 mg IVPUSH ONETIME ONE Stop: 12/02/18 23:10 Last Admin: 12/02/18 23:15 Dose: 30 mg Labetalol HCl (Normodyne) Confirm Administered Dose 100 mg .ROUTE .STK-MED ONE Stop: 12/02/18 23:16 Lidocaine HCl (Xylocaine 1%) Confirm Administered Dose 50 ml .ROUTE .STK-MED ONE Stop: 12/02/18 21:07 Last Admin: 12/02/18 21:10 Dose: 45 ml Midazolam HCl (Versed 1 Mg/Ml) Confirm Administered Dose 2 mg .ROUTE .STK-MED ONE Stop: 12/02/18 20:03 Neostigmine Methylsulfate (Neostigmine) Confirm Administered Dose 5 mg .ROUTE .STK-MED ONE Stop: 12/02/18 21:54 Ondansetron HCl (Zofran) 4 mg IVPUSH ONETIME ONE Stop: 12/02/18 15:08 Last Admin: 12/02/18 15:18 Dose: 4 mg Ondansetron HCl (Zofran) Confirm Administered Dose 4 mg .ROUTE .STK-MED ONE Stop: 12/02/18 20:03 Ondansetron HCl (Zofran) 4 mg IVPUSH ONETIME PRN PRN Reason: Nausea/Vomiting Potassium Chloride (Klor-Con M20) 20 meq PO ONETIME ONE Stop: 12/05/18 07:54 Last Admin: 12/05/18 08:24 Dose: 20 meq Potassium Chloride (Klor-Con M20) 40 meq PO ONETIME ONE Stop: 12/06/18 13:31 Last Admin: 12/06/18 13:48 Dose: 40 meq Propofol (Diprivan 20 Ml) Confirm Administered Dose 200 mg .ROUTE .STK-MED ONE Stop: 12/02/18 20:03 Rocuronium Kenneth (Zemuron) Confirm Administered Dose 50 mg .ROUTE .STK-MED ONE Stop: 12/02/18 20:03 Rocuronium Kenneth (Zemuron) Confirm Administered Dose 50 mg .ROUTE .STK-MED ONE Stop: 12/02/18 23:09 Rosuvastatin Calcium (Crestor) 20 mg PO ONETIME ONE Stop: 12/03/18 10:16 Last Admin: 12/03/18 10:24 Dose: 20 mg Sodium Chloride (Saline Flush) 10 ml FLUSH ONETIME ONE Stop: 12/02/18 15:17 Last Admin: 12/02/18 17:17 Dose: Not Given Spironolactone (Aldactone) 25 mg PO DAILY [facility] Last Admin: 12/04/18 09:01 Dose: 25 mg Succinylcholine Chloride (Succinylcholine In Ns Pf) Confirm Administered Dose 100 mg .ROUTE .STK-MED ONE Stop: 12/02/18 20:03 Thiamine HCl (Vitamin B-1) 100 mg PO DAILY [facility] - Exam General: Alert, Oriented Neck: Supple Consult PN Assessment/Plan Procedures: Procedures X-RAY EXAM OF SKULL (06/29/17) Problem List Initiated/Reviewed/Updated: Yes Plan: Assessment * Postop day 2 for small bowel resection secondary to intestinal ischemia * CTA of the chest impression: 1. Atherosclerotic change within the thoracic aorta without aneurysm, dissection, or stenosis. 2. No findings of pulmonary embolism. 3. Minimal right-sided pleural effusion and mild atelectasis within both posterior lungs. * CTA of the abdomen and pelvis, impression: 1. Diffuse atheromatous change. Areas of stenosis as noted above. Greatest stenosis is about 50%. 2. Dilated small bowel loops fairly stable in size from previous exam which may represent residual post op ileus. 3. Slightly increased free fluid within the pelvis. Small amount of fluid is seen around the liver. Minimal free air is seen compatible with surgery. * Peripheral vascular disease * Hyponatremia - improving - sodium 134 * Hypokalemia - 3.4 * Hypertension - will need adjustment as outpatient * Hyperlipidemia * Tobaccoism * ETOH use : 6-12 beers daily * Hypomagnesemia - resolved - magnesium 1.8 * Diet being advanced to clear liquids Recommendation * Continue spironolactone. * Continue lisinopril 10 mg daily. * K-Dur 40 meq PO today and recheck as outpatient * [place] protocol. Patient will be at increased risk for alcohol withdrawal after 24-48 hours. * Counseling on tobacco cessation. 5 minutes spent in counseling. * CT results consistent with diffuse atherosclerosis. Recommend high-dose statin medication, blood pressure control, smoking cessation, aspirin, Mediterranean diet, and exercise. Discussed this with the patient today. * Hydralazine 10 mg every 4 hours when necessary systolic blood pressure greater than 200 or diastolic blood pressure greater than 110. * Encourage incentive spirometry * Change home statin to high intensity * Thank you for letting us participate in the care of this patient. We will follow closely with you.
== END 2018-12-06 13:50 | disposition home or self-care (01) | DRG 230 ==
LOC: JD.ED 14:35 → OBSVTOIN 18:55 → INTOOBSV 18:55 → JD.MS 18:55
PROVIDERS: ADMIT Surgery; ATTEND Surgery
PROC: 0DBA0ZZ Excision of Jejunum, Open Approach (ICD-10-PCS; principal; 2018-12-02)
PROC: 0DJD4ZZ Inspection of Lower Intestinal Tract, Percutaneous Endoscopic Approach (ICD-10-PCS; 2018-12-02)
DX: K55.9 Vascular disorder of intestine, unspecified (principal); K56.609 Unspecified intestinal obstruction, unspecified as to partial versus complete obstruction; F17.210 Nicotine dependence, cigarettes, uncomplicated; I10 Essential (primary) hypertension; E78.00 Pure hypercholesterolemia, unspecified; K21.9 Gastro-esophageal reflux disease without esophagitis; E78.5 Hyperlipidemia, unspecified; I73.9 Peripheral vascular disease, unspecified; E87.1 Hypo-osmolality and hyponatremia; E87.6 Hypokalemia; E83.42 Hypomagnesemia; Z79.899 Other long term (current) drug therapy; Z72.89 Other problems related to lifestyle
CPT/HCPCS: 00790; 36415; 71275; 71275-26; 72191; 72191-26; 74175; 74175-26; 74177; 74177-26; 80048; 80053; 81001; 83735; 85007; 85025; 85027; 86140; 93005; 94640; 94760; 96361; 96374; 96375; 96376; 99285; 99285-25; A9270-GY; J0330; J1170; J1335; J1644; J1885; J2001; J2250; J2405; J2704; J2710; J3010; J3475; J3490; J7030; J7040; J7120; Q9963; Q9967